=== PATIENT | female | born 1955 | race Caucasian/White ===

== ENCOUNTER → 2018-01-07 10:34 | Outpatient (CLI) | payer MEDICARE, MEDICAID, SELFPAY ==
--- NOTE | 2018-01-07 10:29 | DI.REPORT_ITS ---
SYMPTOM/DIAGNOSIS: ATRAUMATIC PAIN LEFT LEG: The patient is status post TKR. The tibial component of the prosthesis is intact. The tibia and fibula appear otherwise unremarkable. Note is made of degenerative changes involving the mortise joint and there is a prominent calcaneal spur, otherwise unremarkable.
== END ==
PROVIDERS: PCP Nurse Practitioner; Visit Provider Physician Assistant Surgical
DX: M65.322 Trigger finger, left index finger (principal); M79.605 Pain in left leg; Z96.652 Presence of left artificial knee joint; M17.12 Unilateral primary osteoarthritis, left knee; M77.32 Calcaneal spur, left foot
CPT/HCPCS: 73590; 99214

== ENCOUNTER → 2018-01-28 10:45 | Outpatient (CLI) | payer MEDICARE, MEDICAID, SELFPAY | PROVIDERS: PCP Nurse Practitioner; Visit Provider Orthopaedic Surgery | DX: Z47.89 Encounter for other orthopedic aftercare (principal); M65.322 Trigger finger, left index finger ==

== ENCOUNTER 2018-04-30 14:05 | Outpatient (REF) | payer MEDICARE, MEDICAID, SELFPAY ==
[2018-04-30 19:27] LABS: ALT 52 U/L (12-78); AST 35 U/L (15-37); Albumin 3.8 g/dL (3.4-5.0); Alkaline Phosphatase 83 U/L (46-116); Anion Gap 8.9 mmol/L (3-11); BUN 26 mg/dL (7-18); Bilirubin, Total 0.4 mg/dL (0.2-1.0); CO2 30.1 mmol/L (21.0-32.0); CREATININE 1.11 mg/dL (0.55-1.02); Calcium 9.7 mg/dL (8.5-10.1); Chloride 103 mmol/L (98-107); Cholesterol 162 mg/dL (50-200); Estimated GFR 49.33 (mL/min/1.73m2); Glucose 84 mg/dL (70-100); HDL Cholesterol 58 mg/dL (40-60); LDL CHOLESTEROL 83 mg/dL (<100); Potassium 4.4 mmol/L (3.5-5.1); Sodium 142 mmol/L (136-145); Total Protein 7.5 g/dL (6.4-8.2); Triglyceride 155 mg/dL (30-150)
== END 2018-04-30 14:25 ==
LOC: NCHCN 14:05
PROVIDERS: PCP Nurse Practitioner; Visit Provider Nurse Practitioner
DX: I10 Essential (primary) hypertension (principal); E11.9 Type 2 diabetes mellitus without complications; E78.5 Hyperlipidemia, unspecified
CPT/HCPCS: 80053; 80061; 83721; 83036

== ENCOUNTER 2018-05-04 15:08 | Outpatient (REF) | payer MEDICARE, MEDICAID, SELFPAY ==
--- NOTE | 2018-05-04 13:40 | ENDOMET_PTH ---
PATIENT: Jacki Jimenez LOC: [facility] U#:[id number] AGE/SX: 63/F ROOM: RE05/04/[address]: Kourtney Aguilar : 1955 BED: DIS: 05/04/2018 SPEC #: [id number] RECD: 05/04/18 17:43 STATUS: RU REQ #: [id number] CHONG: 05/04/18 13:[address]: Kourtney Aguilar DEPT: Surgical Specimen RECD BY: Selina Mendoza ENTERED: 05/04/18 17:43 SP TYPE: Endomet OTHR DR: Cherelle Boyce Tissues: 1 - ENDOMETRIUM BX/PARULETTE Procedures: GROSS AND MICRO LEVEL 4 Comments: [id number]
== END 2018-05-04 15:28 ==
LOC: LBN 15:08
PROVIDERS: PCP Nurse Practitioner; Visit Provider Obstetrics & Gynecology Gynecology
DX: N85.02 Endometrial intraepithelial neoplasia [EIN] (principal); N85.8 Other specified noninflammatory disorders of uterus
CPT/HCPCS: 88305

== ENCOUNTER 2018-05-06 11:30 | Outpatient (CLI) | payer MEDICARE, MEDICAID, SELFPAY ==
--- NOTE | 2018-05-06 11:26 | DI.RAD_ITS ---
SYMPTOM/DIAGNOSIS: PAIN RIGHT KNEE: There are severe degenerative changes of the medial femoral tibial joint space. There is prominent periarticular spurring. Spurring is also noted at the patella. There is varus angulation and widening of the lateral femoral tibial joint space which also shows spurring. IMPRESSION: Severe degenerative changes of the medial femoral tibial joint.
== END 2018-05-06 11:50 ==
PROVIDERS: PCP Nurse Practitioner; Referring Provider Nurse Practitioner; Visit Provider Orthopaedic Surgery
DX: M25.561 Pain in right knee (principal); M17.11 Unilateral primary osteoarthritis, right knee
CPT/HCPCS: 99212; 73560

== ENCOUNTER 2018-11-11 14:16 | Outpatient (REF) | payer MEDICARE, MEDICAID, SELFPAY ==
[2018-11-11 20:07] LABS: COMMENT (LAB VIEW ONLY) 132.91 mg/dL; Microalb ug/mg Crea 55.4 ug/mg Cr
== END 2018-11-11 14:36 ==
LOC: NCHCN 14:16
PROVIDERS: PCP Nurse Practitioner; Visit Provider Nurse Practitioner
DX: E11.9 Type 2 diabetes mellitus without complications (principal)
CPT/HCPCS: 82043; 82570

== ENCOUNTER 2018-11-23 00:39 | Outpatient (CLI) | payer MEDICARE, MEDICAID, SELFPAY ==
--- NOTE | 2018-11-23 09:30 | MERGEMPI_ITS ---
*[facility]* *[facility]* [address] [place] [address] Myocardial Perfusion Imaging - SPECT Regadenoson Date of study: 11/23/2018 *PATIENT PRESENTATION* Height: 154.9cm (61in) Blood Pressure: Weight: 126.8kg (279lb) BSA: 2.42m^2 Referring physician: Scott Levin MD Ordering physician: Cherelle Boyce Impressions: Normal perfusion by Tc99m Sestamibi Imaging. Summary: 1. Myocardial perfusion imaging: No myocardial perfusion defects noted. 2. The calculated left ventricular ejection fraction after stress: 72%. Indication: R06.02. History: REASON FOR TESTING: INCREASING SHORTNESS OF BREATH. PRIOR MPI 09/2013. PMH: OSTEOARTHRITIS, MELONY, DIABETES, MORBID OBESITY, BENIGHN HYPERTENSION, CORONARY ATHERSCLEROSIS, HYPERLIPIDEMIA, HYPOTHYROIDISM, GERD, DIVERTICULITIS WITH HEMICOLECTOMY, TKR, DEPRESSION, ADENOCARCINOMA OF ENDOMETRIUM. FAMILY HX: HYPERTENSION IN MOTHER AND BROTHER. HEART CATH WITH ATTEMPTED STENTS- . SMOKING: NEVER SMOKER. EXCERCISE: NO REGULAR EXCERCISE. Risk factors: Family history of coronary artery disease. Diabetes mellitus. Obesity. Dyslipidemia. Cholesterol: 146mg/dl. HDL: 58mg/dl. LDL: 83mg/dl. Triglycerides: 155mg/dl. ALLERGIES: RANITADINE, CATS, FUMES, PLASTIC. MEDICATIONS: VENLAFAXINE 37.5 MG BID, SIMVASTATIN 20 MG DAILY, METFORMIN 1000 MG BID, LORATADINE 10 MG DAILY, LEVOTHYROXINE 25 MCG DAILY, GLIPIZIDE 5 MG DAILY, VIT D3 2000, UNITS DAILY, BUPROPION HCL 150 MG DAILY, ATENOLOL 100 MG DAILY, ASPIRIN 81 MG DAILY, AMLODIPINE 5 MG DAILY, ALBUTEROL SULFATE 2 PUFFS Q6H PRN, ADVIL 200 MG Q6H PRN. Imaging Technique: Protocol: Regadenoson. Acquisition: Gated SPECT; 1 day - rest/stress. The patient was imaged in the supine position. Attenuation correction used. Isotope administration: - Rest. Tc[99m]-sestamibi. Dose: 11.1mCi. Injection time: 09:40 AM. Injection to stress time: 00:45. - Stress. Tc[99m]-sestamibi. Dose: 36mCi. Injection time: 11:40 AM. 1-2 min before end of exercise Baseline ECG: LAST EKG 05/20/2006- ATRIAL RHYTHM, RBBB. TODAY'S EKG-SINUS RHYTHM, RBBB. HR 86. Stress protocol: +--------+---+ + + !Stage !HR !BP (mmHg) !Comments ! +--------+---+ + + !Baseline!86 !140/80 (100) ! ! +--------+---+ + + !1 min !100!142/70 (94) !Inject Regadenoson.! +--------+---+ + + !3 min !115!160/100 (120)! ! +--------+---+ + + !6 min !103! ! ! +--------+---+ + + !7 min !99 !150/90 (110) ! ! +--------+---+ + + * Stress results: The rate-pressure product for the peak heart rate and blood pressure was 09884fp Hg/min. Stress ECG: LEXISCAN TESTING ENDED IN 7 MINS, 22 SECS THE EFFECT OF THE MEDICATION NO LONGER PRESENT. MAX HR WAS 119. HYPERTENSIVE BLOOD PRESSURE REPSONSE. PT DID VOMIT SMALL AMT AT EFFECT OF LEXISCAN. ECTOPY: NONE NOTED. ANGINA: NO REPORTED CHEST PAIN OR PRESSURE. ISCHEMIA: NO ISCHEMIC CHANGES NOTED. Myocardial perfusion: Imaging information: gated. No myocardial perfusion defects noted. Ventricular Function (Wall Motion): The calculated left ventricular ejection fraction after stress: 72%. Study data: Scott Levin MD supervised and was readily available during the procedure. This study was interpreted by [facility]. Study status: Routine. Consent: The risks, benefits, and alternatives to the procedure were explained to the patient and informed consent was obtained. Procedure: Initial setup. A baseline ECG was recorded. Surface ECG leads and manual cuff blood pressure measurements were monitored. Heart sounds: Normal. Lung sounds: Normal. Regadenoson stress test. Stress testing was performed, with regadenoson by intravenous bolus, for a total dose of 0.4mgover 10.00sec, followed by a 5ml saline flush. The infusion was terminated due to per protocol. The patient was unable to exercise due to deconditioning and or frailty. Study completion: All catheters inserted during the procedure were removed. The patient tolerated the procedure well and was discharged from the lab. Discharge: The patient left the laboratory in stable condition. Birthdate: Patient birthdate: 1955. Sex: Gender: female. Study date: Study date: 11/23/2018. Study time: 00:01 AM. Electronically signed by Scott Levin MD 11/23/2018 17:26
[2018-11-23] MEDS: Regadenoson 0.4 MG/5 ML SYR IVP (11:27)
== END 2018-11-23 00:59 ==
PROVIDERS: PCP Nurse Practitioner; Visit Provider Nurse Practitioner
DX: R06.02 Shortness of breath (principal); I25.10 Atherosclerotic heart disease of native coronary artery without angina pectoris; E11.9 Type 2 diabetes mellitus without complications; I10 Essential (primary) hypertension; E78.5 Hyperlipidemia, unspecified; E03.9 Hypothyroidism, unspecified; E66.1 Drug-induced obesity; Z82.49 Family history of ischemic heart disease and other diseases of the circulatory system
CPT/HCPCS: 78452; 93016; 93018; 93017; J2785

== ENCOUNTER 2018-11-25 01:37 | Outpatient (CLI) | payer MEDICARE, MEDICAID, SELFPAY ==
--- NOTE | 2018-11-25 | PFT_ITS ---
PULMONARY FUNCTION TEST REPORT Patient - Jacki Jimenez DATE OF SERVICE November 25, 2018 REQUESTING PROVIDER Cherelle Boyce NP INTERPRETATION OF STUDY Spirometry shows no evidence of obstructive airways disease. No bronchodilator response. LUNG VOLUMES - Lung volumes show no evidence of restriction. DIFFUSION CAPACITY- Normal. AIRWAY RESISTANCE - Normal. IMPRESSION Overall normal pulmonary function study. Clinical correlation recommended. Marisa Lane M.D. MONIQUE/ T- 11/26/2018
[2018-11-25] MEDS: Albuterol HFA 18 GM 200 PUFF INH IH (11:06)
[2018-11-25] MEDS: Inhaler, Assist Device 1 EACH MC (11:06)
== END 2018-11-25 01:57 ==
PROVIDERS: PCP Nurse Practitioner; Visit Provider Nurse Practitioner
DX: R06.02 Shortness of breath (principal)
CPT/HCPCS: 94060; 94150; 94726; 94729

== ENCOUNTER 2018-12-17 00:33 | Outpatient (CLI) | payer MEDICARE, MEDICAID, SELFPAY ==
[2018-12-17 14:19] LABS: CREATININE 1.18 mg/dL (0.55-1.02); Estimated GFR 45.97 (mL/min/1.73m2)
[2018-12-17] MEDS: Normal Saline Flush 10 ML SYR IVP (14:56)
[2018-12-17] MEDS: Gadoterate meglumine 20 ML VIAL IVP (14:58)
--- NOTE | 2018-12-17 15:12 | DI.MRI_ITS ---
SYMPTOM/DIAGNOSIS: UNILATERAL HEARING LOSS H90.5, H91.20 MRI OF INTERNAL AUDITORY CANALS BRAIN, WITHOUT AND WITH CONTRAST: Routine examination was performed. There is patient motion artifact which does degrade the images. The ventricles and sulci are consistent with the patient's age. There are areas of hyperintense signal on the Flair and T2 weighted images in the white matter and jeannie most suggestive of small vessel ischemic disease. No intracranial mass, midline shift or mass effect is identified. The diffusion weighted images show no evidence of restrictive diffusion. Gradient images show no evidence of intracranial hemorrhage. No masses are seen in the region in the region of the internal auditory canals or cerebellar pontine angles. There is fluid signal seen in the right mastoid air cells which may represent mastoiditis. The remaining visualized paranasal sinuses are clear. There is a normal flow void in the [place] of [place]. Following contrast administration no enhancing lesions are seen. IMPRESSION: 1. Image degradation secondary to patient motion. 2. No acute abnormality. No evidence of an acute infarct. No intracranial hemorrhage is seen. No mass or abnormal enhancement is seen in the cerebellar pontine angles or internal auditory canals. 3. Increased signal seen in the right mastoid air cells which may represent mastoiditis.
--- NOTE | 2018-12-17 16:44 | DI.VRAD_ITS ---
EXAM: MR Head Without and With Contrast EXAM DATE/TIME: 12/17/2018 3:04 PM CLINICAL HISTORY: 63 years old, female; Other: Unilat hearing loss TECHNIQUE: Imaging protocol: MR of the head without and with intravenous contrast. Contrast material: DOTAREM; Contrast volume: 20 ml; Contrast route: IV; COMPARISON: No relevant prior studies available. FINDINGS: Brain: Examination is mildly degraded by patient motion. Ventricles and sulci are within normal limits for the patient's age. There is no evidence of an intracranial mass or shift. There are scattered nonspecific foci of T2 hyperintense signal seen within the supratentorial periventricular and subcortical white matter. Patchy T2 bright signal is also seen within the jeannie. These findings are nonspecific but likely related to remote small vessel ischemic change /microangiopathy. There is however no restricted diffusion to suggest recent, acute or subacute ischemia or cytotoxic edema. There is no abnormal intracranial contrast enhancement. There is no abnormal susceptibility to suggest prior hemorrhage. No abnormal extra-axial collections are identified. Ventricles: No significant ventricular enlargement Bones/joints: The craniocervical junction is unremarkable. The calvarium is unremarkable Soft tissues: Subcutaneous soft tissues are unremarkable. Sinuses: There is no significant sinus opacification or fluid level. Mastoid air cells: There is minimal patchy opacification of a few mastoid air cells on the right. Internal auditory canals: The internal auditory canals are grossly symmetric. There is no evidence of an intra-or extra canalicular mass. Orbits: Orbits are unremarkable Other vasculature: Flow voids are unremarkable on the sequences obtained. IMPRESSION: Exam mildly degraded by patient motion. No acute findings identified. Findings suggestive of remote small vessel ischemic change microangiopathy. No restricted diffusion to suggest recent, acute or subacute change. Dictated and Authenticated by: Gabriela Reyes MD. Ordering:BRISSA Higgins MD
== END 2018-12-17 00:53 ==
PROVIDERS: PCP Nurse Practitioner; Visit Provider Otolaryngology Otolaryngology/Facial Plastic Surgery
DX: H90.5 Unspecified sensorineural hearing loss (principal); H91.20 Sudden idiopathic hearing loss, unspecified ear; H74.8X1 Other specified disorders of right middle ear and mastoid; Z01.812 Encounter for preprocedural laboratory examination
CPT/HCPCS: 70553; 82565

== ENCOUNTER 2019-03-08 15:12 | Outpatient (REF) | payer MEDICARE, MEDICAID, SELFPAY ==
--- NOTE | 2019-03-08 14:20 | PAPFT_PTH ---
PATIENT: Jacki Jimenez LOC: [facility] U#:[id number] AGE/SX: 64/F ROOM: RE03/08/[address]: Kourtney Aguilar : 1955 BED: DIS: 03/08/2019 SPEC #: [id number] RECD: 03/08/19 17:47 STATUS: RU REMickie #: [id number] CHONG: 03/08/19 14:[address]: Kourtney Aguilar DEPT: [facility] Cytology RECD BY: Selina Mendoza ENTERED: 03/08/19 17:48 SP TYPE: PAPFT OTHR DR: Cherelle Boyce Tissues: 1 - CX/ENDOCX FOR PAP SMEARS Procedures: PAP THIN PREP/[facility] Screening HPV DNA PROBE Comments: [id number]
--- NOTE | 2019-03-08 14:20 | ENDOMET_PTH ---
PATIENT: Jacki Jimenez LOC: [facility] U#:[id number] AGE/SX: 64/F ROOM: RE03/08/[address]: Kourtney Aguilar : 1955 BED: DIS: 03/08/2019 SPEC #: [id number] RECD: 03/08/19 17:27 STATUS: RU REMickie #: [id number] CHONG: 03/08/19 14:[address]: Kourtney Aguilar DEPT: Surgical Specimen RECD BY: Selian Mendoza ENTERED: 03/08/19 17:28 SP TYPE: Endomet OTHR DR: Cherelle Boyce Tissues: 1 - ENDOMETRIUM BX/PARULETTE Procedures: GROSS AND MICRO LEVEL 4 Comments: [id number]
== END 2019-03-08 15:32 ==
LOC: LBN 15:12
PROVIDERS: PCP Nurse Practitioner; Visit Provider Obstetrics & Gynecology Gynecology
DX: N85.02 Endometrial intraepithelial neoplasia [EIN] (principal); Z85.42 Personal history of malignant neoplasm of other parts of uterus; Z12.4 Encounter for screening for malignant neoplasm of cervix; Z11.51 Encounter for screening for human papillomavirus (HPV)
CPT/HCPCS: 88142; 88305; 87624

== ENCOUNTER 2019-04-05 19:26 | Outpatient (REF) | payer MEDICARE, MEDICAID, SELFPAY ==
[2019-04-05 19:15] LABS: ALT 57 U/L (14-59); AST 47 U/L (15-37); Albumin 3.7 g/dL (3.4-5.0); Alkaline Phosphatase 75 U/L (46-116); Anion Gap 12.5 mmol/L (3-11); BUN 29 mg/dL (7-18); Bilirubin, Total 0.5 mg/dL (0.2-1.0); CO2 26.5 mmol/L (21.0-32.0); CREATININE 1.29 mg/dL (0.55-1.02); Calcium 9.6 mg/dL (8.5-10.1); Calculated LDL 74 mg/dL; Chloride 103 mmol/L (98-107); Cholesterol 153 mg/dL (50-200); Estimated GFR 41.35 (mL/min/1.73m2); Glucose 119 mg/dL (70-100); HDL Cholesterol 51 mg/dL (40-60); Sodium 142 mmol/L (136-145); TSH (W/Ref FT4) 3.38 uIU/mL (0.36-3.74); Total Protein 7.7 g/dL (6.4-8.2); Triglyceride 144 mg/dL (30-150)
== END 2019-04-05 19:46 ==
LOC: NCHCN 19:26
PROVIDERS: PCP Nurse Practitioner; Visit Provider Nurse Practitioner
DX: I10 Essential (primary) hypertension (principal); E11.9 Type 2 diabetes mellitus without complications
CPT/HCPCS: 80053; 80061; 84443

== ENCOUNTER 2019-08-04 01:11 | Outpatient (CLI) | payer MEDICARE, MEDICAID, SELFPAY ==
--- NOTE | 2019-08-04 13:00 | DI.MAMMO_ITS ---
EXAM: MG MAMMO SCREENING CLINICAL HISTORY: Screening,z12.39 TECHNIQUE: Bilateral full field digital CC and MLO mammographic images were obtained with 3D tomosyn thesis and utilizing computer aided detection (CAD). COMPARISON: Available for comparison. FINDINGS: Masses/Architectural Distortion: None seen. Microcalcifications: No suspicious pleomorphic-type are seen. Skin Thickening/Nipple Retraction: None. IMPRESSION: 1. No significant interval change with no specific features of malignancy noted. 2. Unless there is more urgent need, screening mammography is recommended, as per [employer] guidelines. ACR BI-RAD Category- 1 Negative Breast Density - Category B - Scattered areas of fibroglandular density A negative radiographic report should not delay biopsy if a dominant or clinically suspicious mass is present. Up to ten percent of cancers are not identified on mammography. A negative report may reinforce clinical impression. Adenosis and dense breasts may obscure an underlying neoplasm. False positive reports average 6 to 10%. Patient will receive a letter notifying them of these results.
== END 2019-08-04 01:31 ==
PROVIDERS: PCP Nurse Practitioner; Visit Provider Obstetrics & Gynecology Gynecology
DX: Z12.31 Encounter for screening mammogram for malignant neoplasm of breast (principal)
CPT/HCPCS: 77063; 77067

== ENCOUNTER 2020-01-05 14:06 | Outpatient (REF) | payer MEDICARE, MEDICAID, SELFPAY ==
--- NOTE | 2020-01-05 13:45 | ENDOMET_PTH ---
PATIENT: Jacki Jimenez LOC: [facility] U#:[id number] AGE/SX: 64/F ROOM: RE01/05/[address]: Kourtney Aguilar : 1955 BED: DIS: 01/05/2020 SPEC #: [id number] RECD: 01/05/20 16:09 STATUS: RU REMickie #: [id number] CHONG: 01/05/20 13:[address]: Korutney Aguilar DEPT: Surgical Specimen RECD BY: Selina Mendoza ENTERED: 01/05/20 16:10 SP TYPE: Endomet OTHR DR: Cherelle Boyce Tissues: 1 - ENDOMETRIUM BX/PARULETTE Procedures: GROSS AND MICRO LEVEL 4 Comments: [id number]
== END 2020-01-05 14:26 ==
LOC: LBN 14:06
PROVIDERS: PCP Nurse Practitioner; Visit Provider Obstetrics & Gynecology Gynecology
DX: Z85.44 Personal history of malignant neoplasm of other female genital organs (principal); Z12.79 Encounter for screening for malignant neoplasm of other genitourinary organs
CPT/HCPCS: 88305

== ENCOUNTER 2020-03-06 15:47 | Outpatient (REF) | payer MEDICARE, MEDICAID, SELFPAY ==
[2020-03-06 18:33] LABS: COMMENT (LAB VIEW ONLY) 49.19 mg/dL; Microalb ug/mg Crea 46.1 ug/mg Cr
[2020-03-06 19:04] LABS: Hemoglobin A1C 10.5 % (<5.7)
[2020-03-06 19:20] LABS: ALT 109 U/L (14-59); AST 81 U/L (15-37); Albumin 3.5 g/dL (3.4-5.0); Alkaline Phosphatase 80 U/L (46-116); Anion Gap 6.8 mmol/L (3-11); BUN 20 mg/dL (7-18); Bilirubin, Total 0.9 mg/dL (0.2-1.0); CO2 29.2 mmol/L (21.0-32.0); CREATININE 1.14 mg/dL (0.55-1.02); Calcium 9.1 mg/dL (8.5-10.1); Calculated LDL 82 mg/dL (<100); Chloride 99 mmol/L (98-107); Cholesterol 158 mg/dL (<200); Estimated GFR 47.54 (mL/min/1.73m2); Glucose 402 mg/dL (74-106); HDL Cholesterol 45 mg/dL (40-60); Potassium 4.5 mmol/L (3.5-5.1); Sodium 135 mmol/L (136-145); TSH (W/Ref FT4) 2.52 uIU/mL (0.36-3.74); Total Protein 7.3 g/dL (6.4-8.2); Triglyceride 155 mg/dL (<150)
[2020-03-06 19:38] LABS: Vitamin D 25 Total 33.6 ng/ml (30-100)
== END 2020-03-06 16:07 ==
LOC: NCHCN 15:47
PROVIDERS: PCP Nurse Practitioner; Visit Provider Nurse Practitioner
DX: I10 Essential (primary) hypertension (principal); E11.9 Type 2 diabetes mellitus without complications; E78.5 Hyperlipidemia, unspecified; E03.9 Hypothyroidism, unspecified; F32.9 Major depressive disorder, single episode, unspecified; E66.8 Other obesity
CPT/HCPCS: 80053; 80061; 82306; 82043; 82570; 83036; 84443

== ENCOUNTER 2020-07-03 15:05 | Outpatient (REF) | payer MEDICARE, MEDICAID, SELFPAY ==
--- NOTE | 2020-07-03 13:55 | ENDOMET_PTH ---
PATIENT: Jacki Jimenez LOC: [facility] U#:[id number] AGE/SX: 65/F ROOM: RE07/03/[address]: Bri Wall DO : 1955 BED: DIS: 07/03/2020 SPEC #: [id number] RECD: 07/03/20 17:02 STATUS: RU RE #: [id number] CHONG: 07/03/20 13:[address]: Bri Wall DEPT: Surgical Specimen RECD BY: Selina Mendoza ENTERED: 07/03/20 17:03 SP TYPE: Endomet OTHR DR: Cherelle Boyce Tissues: 1 - ENDOMETRIUM BX/CURRETTE Procedures: GROSS AND MICRO LEVEL 4 Comments: [id number]
== END 2020-07-03 15:25 ==
LOC: LBN 15:05
PROVIDERS: PCP Nurse Practitioner; Visit Provider Obstetrics & Gynecology
DX: N85.02 Endometrial intraepithelial neoplasia [EIN] (principal); T38.5X5A Adverse effect of other estrogens and progestogens, initial encounter; Z85.42 Personal history of malignant neoplasm of other parts of uterus; Z97.5 Presence of (intrauterine) contraceptive device
CPT/HCPCS: 88305

== ENCOUNTER 2021-01-02 12:11 | Outpatient (REF) | payer MEDICARE, MEDICAID, SELFPAY ==
--- NOTE | 2021-01-02 11:45 | ENDOMET_PTH ---
PATIENT: Jacki Jimenez LOC: [facility] U#:[id number] AGE/SX: 65/F ROOM: RE01/02/[address]: Kourtney Aguilar : 1955 BED: DIS: 01/02/2021 SPEC #: [id number] RECD: 01/02/21 12:53 STATUS: RU REQ #: [id number] CHONG: 01/02/21 11:[address]: Kourtney Aguilar DEPT: Surgical Specimen RECD BY: Selina Mendoza ENTERED: 01/02/21 12:54 SP TYPE: Endomet OTHR DR: Cherelle Boyce Tissues: 1 - ENDOMETRIUM BX/CURRETTE Procedures: GROSS AND MICRO LEVEL 4 Comments: [id number]
== END 2021-01-02 12:12 | disposition home or self-care (01) ==
LOC: LBN 12:11
PROVIDERS: PCP Nurse Practitioner; Visit Provider Obstetrics & Gynecology Gynecology
DX: N85.02 Endometrial intraepithelial neoplasia [EIN] (principal); N85.8 Other specified noninflammatory disorders of uterus; Z85.44 Personal history of malignant neoplasm of other female genital organs
CPT/HCPCS: 88305

== ENCOUNTER 2021-03-04 19:28 | Inpatient (IN) | payer MEDICARE, MEDICAID, SELFPAY ==
[2021-03-04 19:49] VITALS: BP 136/89; PULSE 79; RESP 24; TEMP 36.8; O2SAT 80
--- NOTE | 2021-03-04 20:00 | DI.RAD_ITS ---
Exam(s) XR PORTABLE CHEST AP EXAM: XR PORTABLE CHEST AP CLINICAL HISTORY: sob, covid TECHNIQUE: 2D digital imaging was performed. COMPARISON: CR CHEST 2 VIEWS PA,LAT from 11/09/2012 FINDINGS: The lungs are suboptimally inflated. There is elevation of the right diaphragm. There are abnormal increased densities peripherally in the right lung consistent with pneumonia. Mildly increased densi ties are also seen at the left lung base. No effusion or pneumothorax. Degenerative changes are not ed in the spine.. IMPRESSION: Bilateral infiltrates, right greater than left. DATA REPOSITORY: RADIATION DOSE DELIVERED:
--- NOTE | 2021-03-04 20:22 | W.ED.GENAD ---
Discharge Plan Disposition Patient Disposition: [facility] INPATIENT Condition: Serious Discharge Details Clinical Impression: Pneumonia due to 2019 novel coronavirus Admit Date/Time: 03/04/21 23:16 Admit Provider: Julio C Pedersen Attending Provider: Julio C Pedersen Primary Care Provider: Cherelle Boyce ED Provider: Annia Zelaya Discharge Data Discharge Date/Time-TO BE ENTERED AT DEPARTURE: 03/05/21 00:30 Medical Decision Making covid positive patient presents for evaluation of hypoxia, arrives at 80 % on room air. placed on 2 liter nc. routine covid/pneumonia work up initiated. given remdesivir 200 mg IVPB and decadron 6 mg\ will admit, care given to DR Pedersen Medical Records Medical records reviewed: Yes I reviewed the patient's medical records. Imaging Data Radiologic Study: Imaging: X-Ray Radiologist's impression: Exam(s) PROCEDURE INFORMATION: Exam: XR Chest Exam date and time: 03/04/2021 8:01 PM Age: 66 years old Clinical indication: Shortness of breath; Patient HX: SOB, covid TECHNIQUE: Imaging protocol: XR of the chest. Views: 1 view. COMPARISON: No relevant prior studies available. FINDINGS: Lungs: Suspected patchy consolidation is seen along the lateral aspect of the right hemithorax. A few indistinct patchy densities also seen in the lower left lung field with no other consolidation or collapse detected. Pleural spaces: No pleural effusion. No pneumothorax. Heart/Mediastinum: Heart size is upper limits of normal and vessel margins are sharply defined. Bones/joints: No acute osseous lesions are detected. IMPRESSION: Suspected consolidation along the lateral right lung field worrisome for pneumonia. Lab Data Lab results reviewed: Yes I reviewed the patient's lab results. Lab results narrative: Most recent lab results Calcium 8.5 mg/dL (8.5-10.1) 03/04/21 20:50 Magnesium 1.7 mg/dL (1.8-2.4) L 03/04/21 20:50 Laboratory Results - last 24 hr 03/04/21 03/04/21 03/04/21 20:50 20:50 20:50 WBC 8.35 RBC 5.13 Hgb 14.4 Hct 43.4 MCV 84.6 MCH 28.1 MCHC 33.2 RDW 14.2 Plt Count 206 MPV 9.7 Immature Gran % 0.8 Neutrophils % 73.6 Lymphocytes % 14.3 Monocytes % 9.5 Eosinophils % 1.6 Basophils % 0.2 Nucleated RBC % 0 Absolute Neutrophils 6.15 Absolute Lymphocytes 1.19 L Absolute Monocytes 0.79 Absolute Eosinophils 0.13 Absolute Basophils 0.02 D-Dimer VBG Lactate Sodium 139 Potassium 3.3 L Chloride 100 Carbon Dioxide 32.2 H Anion Gap 6.8 BUN 16 Creatinine 1.0 Estimated GFR/1.73 m2 55.14 Glucose 132 H Calcium 8.5 Magnesium 1.7 L Ferritin 433 H Total Bilirubin 1.2 H AST 54 H ALT 40 Alkaline Phosphatase 91 Lactate Dehydrogenase 309 H Troponin I C-Reactive Protein 9.07 H Total Protein 7.1 Albumin 2.8 L 03/04/21 03/04/21 03/04/21 20:50 20:50 20:50 WBC RBC Hgb Hct MCV MCH MCHC RDW Plt Count MPV Immature Gran % Neutrophils % Lymphocytes % Monocytes % Eosinophils % Basophils % Nucleated RBC % Absolute Neutrophils Absolute Lymphocytes Absolute Monocytes Absolute Eosinophils Absolute Basophils D-Dimer 1337 H VBG Lactate 1.3 Sodium Potassium Chloride Carbon Dioxide Anion Gap BUN Creatinine Estimated GFR/1.73 m2 Glucose Calcium Magnesium Ferritin Total Bilirubin AST ALT Alkaline Phosphatase Lactate Dehydrogenase Troponin I < 0.05 C-Reactive Protein Total Protein Albumin HPI General Mode of arrival: ambulatory. Limitations to Documentation: no limitations. Information obtained by: patient. HPI Narrative: diagnosed Friday with covid. has had increased shortness of breath, found hypoxic on room air. febrile with sweats. many other family members infected. able to take po. Related Data Home Medications Medication Instructions Recorded Confirmed Advil 200 mg PO Q6H PRN tab-cap 10/13/12 03/04/21 aspirin [Aspir 81] 81 mg PO DAILY tab-cap 10/13/12 03/04/21 atenolol 100 mg PO DAILY tab-cap 10/13/12 03/04/21 metformin 1,000 mg PO BID 10/13/12 03/04/21 simvastatin 20 mg PO DAILY tab-cap 10/13/12 03/04/21 levothyroxine [Synthroid] 25 mcg PO DAILY tab-cap 12/07/12 03/04/21 venlafaxine 37.5 mg PO BID 04/21/13 03/04/21 albuterol sulfate [Proair Hfa] 2 puff INHALATION Q6H PRN #2 06/23/14 10/03/21 inhaler loratadine 10 mg PO DAILY 09/14/14 03/04/21 cholecalciferol (vitamin D3) 2,000 unit PO DAILY 04/10/16 03/04/21 [Vitamin D3] amlodipine 5 mg tablet 5 mg PO DAILY 07/30/18 03/04/21 levonorgestrel 20 mcg/24 hours (6 1 device INTRAUTERINE ONCE #1 08/02/18 03/04/21 yrs) 52 mg intrauterine device device exenatide microspheres 2 mg mg SC 03/08/19 01/20/21 subcutaneous extended release suspension bupropion HCl 150 mg PO DAILY 03/05/21 03/05/21 hydrochlorothiazide 12.5 mg 03/05/21 Previous Rx's Medication Instructions Recorded levonorgestrel 20 mcg/24 hours (6 1 device INTRAUTERINE ONCE #1 08/02/18 yrs) 52 mg intrauterine device device Allergies Allergy/AdvReac Type Severity Reaction Status Date / Time ranitidine Allergy Mild HIVES Verified 03/04/21 19:52 CATS Allergy RASH/ITCHING/BREATHING Uncoded 03/04/21 19:52 DIFFICULTIES FUMES Allergy BREATHING Uncoded 03/04/21 19:52 DIFFICULTIES PLASTIC Allergy RASH Uncoded 03/04/21 19:52 General Stated Complaint: SOB GREY: 3 Review of Systems Constitutional Constitutional: Reports body ache(s), Reports chills, Reports fever(s), Reports headache(s), Reports lethargy and Reports poor appetite (loss of taste) Eyes Eyes: Denies loss of vision ENT Ears, Nose, Mouth, and Throat: Denies vertigo, Denies dizziness and Reports headache(s) Cardiovascular Cardiovascular: Denies chest pain, Denies syncope, Reports dyspnea and Reports dyspnea on exertion Respiratory Respiratory: Reports cough, Denies hemoptysis, Reports dyspnea, Reports dyspnea on exertion and Denies wheezing Gastrointestinal Gastrointestinal: Denies abdominal pain Musculoskeletal Musculoskeletal: Reports myalgias Integumentary/Breasts Skin/Breast: Denies rash Neurologic Neurologic: Denies vertigo, Denies dizziness, Denies syncope, Reports headache(s) and Denies loss of vision Hematologic/Lymphatic Hematologic/Lymphatic: Denies easy bleeding and Denies easy bruising Allergic/Immunologic Allergic/Immunologic: Denies wheezing [facility] Medical History (Updated 03/05/21 @ 16:56 by Annia Zelaya NP) Adenocarcinoma of endometrium Grade 1 diagnosed 2012. No surgery secondary to patient's comorbidities. Mirena IUD inserted 2012 patient has in which her biopsies every 6 months. Adenocarcinoma remains present grade 1 Benign hypertension Chronic osteoarthritis Coronary arteriosclerosis Diabetes mellitus, type 2 Gastroesophageal reflux disease Hyperlipidemia Hypothyroidism Morbid obesity 05/2018 BMI 52 Obstructive sleep apnea syndrome MELONY (obstructive sleep apnea) (10/31/17) Surgical History Hemicolectomy (~2003) diverticulitis, BSO performed concomittantly. anastomotic leak,reoperation, colostomy, MSA infection, wound dehiscence and closure by 2d intention. Open Carpal Tunnel release bilateral Replacement of total knee joint left Family History Mother Hypertensive disorder, systemic arterial Father Acute poliomyelitis Brother Hypertensive disorder, systemic arterial Diabetes Brother Diabetes Personal history of malignant neoplasm Social History Smoking/Tobacco Use Status: Never Smoking risk assessment performed?: Yes Alcohol Intake: never Drug use: Never Substance use type: does not use Number of Children: 1 current occupation: Not working secondary to disabilities Seatbelt use: always Do you feel safe at home: Yes Do you feel safe in your relationship?: Yes History History 1 Para Hx # Term Pregnancies Multiple births Hx # Pregnancies Ectopic pregnancies AB induced Hx Number of Living Children 1 AB spontaneous Exam Const General: cooperative and acute distress mild Nutritional Appearance: obese Orientation: alert, awake and oriented x3 HENMT Head: normal to inspection, normocephalic and atraumatic Mouth: oral mucosae normal Chest Chest: normal inspection of the chest Resp Effort & Inspection: cough and tachypneic Auscultation: diminished lung sounds (bases, scattered coarse breath sounds, no wheeze) bilaterally Cardio Rate: regular rate Rhythm: regular rhythm GI Inspection: obesity Neuro General: patient alert, patient awake and patient oriented x3 Extrem General: full ROM Course Vital Signs Vital signs: Vital Signs Temperature 36.8 C 03/04/21 19:49 Pulse 79 03/04/21 19:49 Respiratory Rate 24 03/04/21 19:49 Blood Pressure 136/89 03/04/21 19:49 Pulse Oximetry 80 L 03/04/21 19:49 Temperature 36.8 C 03/04/21 19:49 Temperature Source Temporal Artery Scan 03/04/21 19:49 Pulse 79 03/04/21 19:49 Respiratory Rate 24 03/04/21 19:49 Blood Pressure 136/89 03/04/21 19:49 Blood Pressure Position Sitting 03/04/21 19:49 Pulse Oximetry 80 L 03/04/21 19:49 Oxygen Delivery Method Room Air 03/04/21 19:49 Oxygen Flow Rate 0 03/04/21 19:49 Pain Level 5 03/04/21 19:49 Lab/Test Results Lab/Test Results: 03/04/21 20:00 Blood Blood Culture - Pending 03/04/21 20:00 Blood Blood Culture - Pending
--- NOTE | 2021-03-04 20:30 | RT.EKG_ITS ---
APPROVED REPORT Exam: Resting ECG Reason for Exam: SOB COVID Patient Location: E HR:74 bpm ECG Measurements Heart Rate 74 AXIS AK 176 P 61 QRSd 151 QRS -17 QT 475 T 2 QTc 528 Conclusion Sinus rhythm...normal P axis, V-rate 60- 99 Right bundle branch block...QRSd>120, terminal axis(90,270) Probable left ventricular hypertrophy...(RaVL+SV3)xQRSd >300 Physician: No stemi, RBBB, unchanged from 2005
[2021-03-04] MEDS: Dexamethasone 4 MG TAB 6 MG PO (20:45)
[2021-03-04 21:10] LABS: Lactate 1.3 mmol/L (0.6-1.4)
[2021-03-04 21:12] LABS: Abs Immature Grans 0.07 10^3/uL (0.0-0.06); Absolute Basophil Count 0.02 10^3/uL (0.0-0.2); Absolute Eosinophil Count 0.13 10^3/uL (0.0-0.7); Absolute Lymphocyte Count 1.19 10^3/uL (1.2-3.4); Absolute Monocyte Count 0.79 10^3/uL (0.1-0.8); Absolute Neutrophil Count 6.15 10^3/uL (1.2-6.7); Basophils % 0.2; Eosinophils % 1.6; HCT 43.4 % (36.0-46.0); HGB 14.4 g/dL (11.2-15.7); Immature Grans % 0.8; Lymphocytes % 14.3; MCH 28.1 pg (27.0-33.0); MCHC 33.2 % (32.0-36.0); MCV 84.6 fL (80-95); MPV 9.7 fL (8.0-11.0); Monocytes % 9.5; Neutrophils % 73.6; Nucleated RBC 0 %; Platelet Count 206 10^3/uL (130-400); RBC 5.13 10^6/uL (3.93-5.22); RDW 14.2 % (11.7-14.6); WBC 8.35 10^3/uL (4.4-10.8)
[2021-03-04] MEDS: REMDESIVIR 200 MG in Normal Saline 250 ML 250 MG IVPB (21:12)
--- NOTE | 2021-03-04 21:23 | DI.VRAD_ITS ---
PROCEDURE INFORMATION: Exam: XR Chest Exam date and time: 03/04/2021 8:01 PM Age: 66 years old Clinical indication: Shortness of breath; Patient HX: SOB, covid TECHNIQUE: Imaging protocol: XR of the chest. Views: 1 view. COMPARISON: No relevant prior studies available. FINDINGS: Lungs: Suspected patchy consolidation is seen along the lateral aspect of the right hemithorax. A few indistinct patchy densities also seen in the lower left lung field with no other consolidation or collapse detected. Pleural spaces: No pleural effusion. No pneumothorax. Heart/Mediastinum: Heart size is upper limits of normal and vessel margins are sharply defined. Bones/joints: No acute osseous lesions are detected. IMPRESSION: Suspected consolidation along the lateral right lung field worrisome for pneumonia. Dictated and Authenticated by: Nick Kinsey MD. Ordering:JOHN Milner MD
[2021-03-04 21:24] VITALS: RESP 24
[2021-03-04 21:29] LABS: ALT 40 U/L (14-59); AST 54 U/L (15-37); Albumin 2.8 g/dL (3.4-5.0); Alkaline Phosphatase 91 U/L (46-116); Anion Gap 6.8 mmol/L (3-11); BUN 16 mg/dL (7-18); Bilirubin, Total 1.2 mg/dL (0.2-1.0); C-Reactive Protein 9.07 mg/dL (0.0-0.3); CO2 32.2 mmol/L (21.0-32.0); Calcium 8.5 mg/dL (8.5-10.1); Chloride 100 mmol/L (98-107); Estimated GFR 55.14 (mL/min/1.73m2); Glucose 132 mg/dL (74-106); LDH 309 U/L (81-234); Magnesium 1.7 mg/dL (1.8-2.4); Potassium 3.3 mmol/L (3.5-5.1); Sodium 139 mmol/L (136-145); Total Protein 7.1 g/dL (6.4-8.2)
[2021-03-04 21:47] LABS: D-Dimer 1337 ng/mlFEU (<500)
[2021-03-04 21:55] LABS: Troponin I < 0.05 ng/mL (<0.06)
[2021-03-04 21:56] LABS: Ferritin 433 ng/mL (8-252)
--- NOTE | 2021-03-04 22:56 | W.PM.HP.N ---
Date of service: 03/04/21 Time of Service: 22:56 Assessment and Plan Assessment and plan (1) COVID: Status: Acute Assessment and plan: COVID. The hypoxia is noted, but O2 sats satisfactory on low dose supplemental oxygen. Not clear that bacterial pneumonia may be present, and in absence of fever or leukocytosis, and no definite infiltrate, will hold on empiric antibiotics. Will continue Dexa and Remdesivir and follow course. Will add prophylactic Lovenox. History of Present Illness History of Present Illness Chief Complaint: SOB Narrative: 66 female, vaccinated, but exposed to numerous unvaccinated family members many of whom have been ill with COVID. Here with 10-14 days of a multitude of symptoms including variably fever, cough, myalgias, nausea, GRAF, fatigue... Tested positive for COVID recently (unable to locate documentation) and advised to monitor at home. Here tonight with increasing SOB and reported home sats 89%. Here in ER w/u of note for RA sat 80%, no leukocytosis, elevated inflammatory markers (CRP, d-Dimer, ferritin, LDH) and CXR showing possible infiltrate along lateral margin right lung. Started on Dexa and Remdesivir and 2L O2 with sats in mid-90s. Admitted for further management. Review of Systems All systems reviewed & are unremarkable except as noted in HPI and below PFSH Medical History Adenocarcinoma of endometrium Grade 1 diagnosed 2012. No surgery secondary to patient's comorbidities. Mirena IUD inserted 2012 patient has in which her biopsies every 6 months. Adenocarcinoma remains present grade 1 Benign hypertension Chronic osteoarthritis Coronary arteriosclerosis Diabetes mellitus, type 2 Gastroesophageal reflux disease Hyperlipidemia Hypothyroidism Morbid obesity 05/2018 BMI 52 Obstructive sleep apnea syndrome Surgical History Hemicolectomy (~2003) diverticulitis, BSO performed concomittantly. anastomotic leak,reoperation, colostomy, MSA infection, wound dehiscence and closure by 2d intention. Open Carpal Tunnel release bilateral Replacement of total knee joint left Family History Mother Hypertensive disorder, systemic arterial Father Acute poliomyelitis Brother Hypertensive disorder, systemic arterial Diabetes Brother Diabetes Personal history of malignant neoplasm Social History Smoking/Tobacco Use Status: Never Smoking risk assessment performed?: Yes Alcohol Intake: never Drug use: Never Substance use type: does not use Number of Children: 1 current occupation: Not working secondary to disabilities Seatbelt use: always Do you feel safe at home: Yes Do you feel safe in your relationship?: Yes History History 1 Para Hx # Term Pregnancies Multiple births Hx # Pregnancies Ectopic pregnancies AB induced Hx Number of Living Children 1 AB spontaneous Meds Allergies and Home Medications Allergies Allergy/AdvReac Type Severity Reaction Status Date / Time ranitidine Allergy Mild HIVES Verified 03/04/21 19:52 CATS Allergy RASH/ITCHING/BREATHING Uncoded 03/04/21 19:52 DIFFICULTIES FUMES Allergy BREATHING Uncoded 03/04/21 19:52 DIFFICULTIES PLASTIC Allergy RASH Uncoded 03/04/21 19:52 Home Medications Medication Instructions Recorded Confirmed Type Advil 200 mg PO Q6H PRN tab-cap 10/13/12 03/04/21 History aspirin [Aspir 81] 81 mg PO DAILY tab-cap 10/13/12 03/04/21 History atenolol 100 mg PO DAILY tab-cap 10/13/12 03/04/21 History bupropion HCl 150 mg PO DAILY tab-cap 10/13/12 03/04/21 History metformin 1,000 mg PO BID 10/13/12 03/04/21 History simvastatin 20 mg PO DAILY tab-cap 10/13/12 03/04/21 History levothyroxine [Synthroid] 25 mcg PO DAILY tab-cap 12/07/12 03/04/21 History venlafaxine 37.5 mg PO BID 04/21/13 03/04/21 History albuterol sulfate [Proair Hfa] 2 puff INHALATION Q6H PRN #2 11/22/13 03/04/21 History inhaler loratadine 10 mg PO DAILY 09/14/14 03/04/21 History cholecalciferol (vitamin D3) 2,000 unit PO DAILY 04/10/16 03/04/21 History [Vitamin D3] amlodipine 5 mg tablet 5 mg PO DAILY 07/30/18 03/04/21 History levonorgestrel 20 mcg/24 hours (6 1 device INTRAUTERINE ONCE #1 08/02/18 03/04/21 Rx yrs) 52 mg intrauterine device device exenatide microspheres 2 mg mg SC 03/08/19 01/20/21 History subcutaneous extended release suspension Exam Narrative Exam Narrative: 136/89, 79, 36.8, 24, 93% (2L). HEENT atraumatic; neck supple; lungs grossly clear but obscured by ambient sounds; heart RRR; abdomen soft and NT; extremities w/o edema; neuro Ox3, lucid, moves all 4s Results Labs Result diagrams: 03/04/21 20:50 03/04/21 20:50 Labs: Laboratory Results - last 24 hr 03/04/21 03/04/21 03/04/21 20:50 20:50 20:50 WBC 8.35 RBC 5.13 Hgb 14.4 Hct 43.4 MCV 84.6 MCH 28.1 MCHC 33.2 RDW 14.2 Plt Count 206 MPV 9.7 Immature Gran % 0.8 Neutrophils % 73.6 Lymphocytes % 14.3 Monocytes % 9.5 Eosinophils % 1.6 Basophils % 0.2 Nucleated RBC % 0 Absolute Neutrophils 6.15 Absolute Lymphocytes 1.19 L Absolute Monocytes 0.79 Absolute Eosinophils 0.13 Absolute Basophils 0.02 D-Dimer VBG Lactate Sodium 139 Potassium 3.3 L Chloride 100 Carbon Dioxide 32.2 H Anion Gap 6.8 BUN 16 Creatinine 1.0 Estimated GFR/1.73 m2 55.14 Glucose 132 H Calcium 8.5 Magnesium 1.7 L Ferritin 433 H Total Bilirubin 1.2 H AST 54 H ALT 40 Alkaline Phosphatase 91 Lactate Dehydrogenase 309 H Troponin I C-Reactive Protein 9.07 H Total Protein 7.1 Albumin 2.8 L 03/04/21 03/04/21 03/04/21 20:50 20:50 20:50 WBC RBC Hgb Hct MCV MCH MCHC RDW Plt Count MPV Immature Gran % Neutrophils % Lymphocytes % Monocytes % Eosinophils % Basophils % Nucleated RBC % Absolute Neutrophils Absolute Lymphocytes Absolute Monocytes Absolute Eosinophils Absolute Basophils D-Dimer 1337 H VBG Lactate 1.3 Sodium Potassium Chloride Carbon Dioxide Anion Gap BUN Creatinine Estimated GFR/1.73 m2 Glucose Calcium Magnesium Ferritin Total Bilirubin AST ALT Alkaline Phosphatase Lactate Dehydrogenase Troponin I < 0.05 C-Reactive Protein Total Protein Albumin Last Vital Signs Temp 36.8 C 03/04/21 19:49 Pulse 79 03/04/21 19:49 Resp 24 03/04/21 21:24 BP 136/89 03/04/21 19:49 Pulse Ox 80 L 03/04/21 19:49
[2021-03-04 23:11] VITALS: BP 165/83; PULSE 90; RESP 20; TEMP 37.2; O2SAT 94
[2021-03-05] VITALS (8 sets, daily range): BP systolic 107–163; BP diastolic 71–87; PULSE 68–81; RESP 18–20; TEMP 36.8–37.1; O2SAT 93–97
[2021-03-05 00:38] LABS: Source Nasal/Nares
[2021-03-05 01:38] LABS: COVID-19 PCR POSITIVE (Negative)
[2021-03-05] MEDS: Levothyroxine 25 MCG TAB PO (06:02)
[2021-03-05] MEDS: Enoxaparin 40 MG/0.4 ML SYR SC (08:26)
[2021-03-05] MEDS: Insulin Aspart 300 UNITS/3 ML PEN SC ×4 (08:26→22:36)
[2021-03-05] MEDS: amLODIPine 5 MG TAB PO (08:27)
[2021-03-05] MEDS: Simvastatin 20 MG TAB PO (08:27)
[2021-03-05] MEDS: Cholecalciferol (Vitamin D3) 1,000 UNIT TAB 2000 UNITS PO (08:27)
[2021-03-05] MEDS: Dexamethasone 4 MG TAB 6 MG PO (08:27)
[2021-03-05] MEDS: Atenolol 50 MG TAB 100 MG PO (08:28)
[2021-03-05] MEDS: Pantoprazole 40 MG TABCR PO (08:28)
[2021-03-05] MEDS: Ascorbic Acid 500 MG TAB 1000 MG PO ×2 (08:28→20:42)
[2021-03-05] MEDS: buPROPion-CR 150 MG TABCR PO (08:28)
[2021-03-05] MEDS: Loratidine 10 MG TAB PO (08:28)
[2021-03-05] MEDS: Aspirin E.C. 81 MG TABEC PO (08:28)
[2021-03-05 08:41] LABS: Abs Immature Grans 0.06 10^3/uL (0.0-0.06); Absolute Basophil Count 0.02 10^3/uL (0.0-0.2); Absolute Lymphocyte Count 1.12 10^3/uL (1.2-3.4); Absolute Monocyte Count 0.49 10^3/uL (0.1-0.8); Absolute Neutrophil Count 4.91 10^3/uL (1.2-6.7); Basophils % 0.3; HCT 40.8 % (36.0-46.0); HGB 13.6 g/dL (11.2-15.7); Immature Grans % 0.9; MCH 27.8 pg (27.0-33.0); MCHC 33.3 % (32.0-36.0); MCV 83.4 fL (80-95); MPV 9.5 fL (8.0-11.0); Monocytes % 7.4; Neutrophils % 74.4; Nucleated RBC 0 %; Platelet Count 204 10^3/uL (130-400); RBC 4.89 10^6/uL (3.93-5.22); RDW 14.2 % (11.7-14.6)
[2021-03-05 08:42] LABS: Lactate 1.5 mmol/L (0.6-1.4)
[2021-03-05 09:03] LABS: Anion Gap 8.8 mmol/L (3-11); BUN 15 mg/dL (7-18); C-Reactive Protein 8.69 mg/dL (0.0-0.3); CO2 29.2 mmol/L (21.0-32.0); CREATININE 0.9 mg/dL (0.55-1.02); Calcium 8.3 mg/dL (8.5-10.1); Chloride 101 mmol/L (98-107); Creatine Kinase 87 U/L (26-192); Glucose 166 mg/dL (74-106); Magnesium 1.7 mg/dL (1.8-2.4); Sodium 139 mmol/L (136-145)
[2021-03-05 09:08] LABS: ALT 33 U/L (14-59); AST 34 U/L (15-37); Albumin 2.5 g/dL (3.4-5.0); Alkaline Phosphatase 76 U/L (46-116); Bilirubin, Direct 0.4 mg/dL (0.0-0.2); NT-proBNP 398 pg/mL (<300); Total Protein 7.1 g/dL (6.4-8.2)
[2021-03-05 09:15] LABS: D-Dimer 1437 ng/mlFEU (<500)
[2021-03-05 09:34] LABS: Procalcitonin < 0.1 ng/mL
[2021-03-05 10:02] LABS: Ferritin 388 ng/mL (8-252)
[2021-03-05] MEDS: MAGNESIUM SULFATE 2 GM/50 ML BAG IVPB (10:02)
[2021-03-05 10:29] LABS: BE 6 mmol/L (-2-3); HCO3 29 mmol/L (22-26); pCO2 35 mmHg (35-45); pH 7.52 (7.35-7.45); pO2 64 mmHg (80-105); sO2 94 % (95-98); tCO2 25 mmol/L (23-27)
[2021-03-05 10:33] LABS: FIO2L 4 L; Site Left Radial
--- NOTE | 2021-03-05 14:34 | INITIAL_ITS ---
- If Service Date Differs Date of service: 03/05/21 Time of Service: 14:34 Care Management Initial Assess REASON FOR HOSPITALIZATION:: COVID PAST MEDICAL HISTORY/PAST SURGICAL HISTORY:: Medical History. Adenocarcinoma of endometrium. Grade 1 diagnosed 2012. No surgery secondary to patient's comorbidities. Mirena IUD inserted 2012 patient has in which her biopsies every 6 months. Adenocarcinoma remains present grade 1. Benign hypertension. Chronic osteoarthritis. Coronary arteriosclerosis. Diabetes mellitus, type 2. Gastroesophageal reflux disease. Hyperlipidemia. Hypothyroidism. Morbid obesity. 05/2018 BMI 52. Obstructive sleep apnea syndrome. Surgical History. Hemicolectomy (~2003). diverticulitis, BSO performed concomittantly. anastomotic leak,reoperation, colostomy, MSA infection, wound dehiscence and closure by 2d intention. Open Carpal Tunnel release. bilateral. Replacement of total knee joint. left PREVIOUS FUNCTIONAL STATUS/SOCIAL/FAMILY SUPPORTS:: Jacki lives in [place]. Her daughter, Mercedez lives nearby. She has a brother, Perry, whom she is close to. She is independent at baseline. CURRENT FUNCTIONAL STATUS:: Jacki is currently on Covid precautions, therefore CM is unable to meet with her. CM attempted to call Jacki with no answer. CM asked the RN, who stated that she does have access to the phone, and she has been using it periodically. Her RN reported no concerns from the patient regarding discharge planning at this time. CM will continue to follow. ADVANCE DIRECTIVES:: None on file. Has patient been provided with info about the portal/API?: No Did the patient sign up for the portal?: No CODE STATUS:: Full Code INSURANCE COVERAGE / FINANCIAL ISSUES:: [facility]/ [facility] CURRENT HOME/COMMUNITY SERVICES/EQUIPMENT:: No known services or equipment. PRIMARY CARE PHYSICIAN:: Cherelle Boyce POTENTIAL DISCHARGE NEEDS:: Evaluations for further needs, such as home O2, follow up appointments. PATIENT/FAMILY EDUCATION NEEDS:: Review discharge instructions regarding activity levels and medications, discussion of self care needs including ask me three. ANTICIPATED BARRIERS TO DISCHARGE:: Need for supplemental O2. TRANSPORTATION:: Via private vehicle by family. PLAN:: Jacki is being monitored closely, and is still requiring O2. Anticipate she will return home once she is medically cleared by MD. Her family will drive her home via private vehicle. She will follow up with her PCP and discharge plan of care. CM will continue to follow.
--- NOTE | 2021-03-05 14:35 | DI.CT_ITS ---
Exam(s) CT CHEST PE CTA EXAM: CT CHEST PE CTA CLINICAL HISTORY: COVID-19, suspicion for PE. TECHNIQUE: Imaging Protocol: Axial CT angiography was performed with multi-slice acquisition and mu lti-planar and/or 3D reconstructions. CONTRAST MATERIAL: Intravenous: Omnipaque 350 Contrast volume:100 ml COMPARISON: CR,XR XR PORTABLE CHEST AP from 03/04/2021 FINDINGS: Pulmonary Arteries: No evidence of filling defect to suggest pulmonary emboli. Tracheobronchial tree: Patent where visualized. Mediastinum and Jess: Small mediastinal and hilar lymph nodes, reactive. Pulmonary parenchyma: Bilateral upper and lower lobe peripheral infiltrates, right greater than left. Findings are compatible with [place] 19 pneumonia. Pleura: No effusion or pneumothorax. Heart: The heart is not dilated. Mild coronary artery calcifications are seen. Aorta: Thoracic aorta non-dilated. Mild atherosclerotic changes. Upper abdomen: Unremarkable. Bones: Degenerative disc changes. Tubes, Catheters, and Lines: None IMPRESSION: Bilateral pneumonia. No evidence of pulmonary embolism. RADIATION DOSE DELIVERED: 619.31mGy.cm Total DLP DATA REPOSITORY: All CT scans at this facility are submitted to the National Radiology Data Registry (NRDR) Dose Index Registry (DIR) with the [employer] (A[employer]). RADIATION OPTIMIZATION: All CT scans at this facility use at least one of these dose optimization te chniques: automated exposure control; mA and/or kV adjustment per patient size (includes targeted exa ms where dose is matched to clinical indication); or iterative reconstruction.
[2021-03-05] MEDS: Omnipaque 350 MG/ML 100 ML BTL IV (14:38)
--- NOTE | 2021-03-05 14:38 | PUCON_ITS ---
General Date Of Service Date of service: 03/05/21 Time of Service: 11:00 Reason for Consult: COVID 19 Assessment and Plan Assessment and plan (1) COVID: Status: Acute (2) Obstructive sleep apnea syndrome: Status: Chronic Assessment and plan: This is a vaccinated 66-year-old female who was admitted for Covid pneumonia. She does have slight elevations in her i nflammatory markers and is almost 2 weeks out from initial symptoms. She has been maintained on remdesivir, Decadron and baricitinib. She appears to be doing quite well and is ambulatory. On her CAT scan today I cannot see any evidence of clot formation but I do see significant parenchymal infiltrates that are consistent with Covid pneumonia. Given that she is almost 2 weeks out of her initial symptoms it is unlikely that her viral replication rate is elevated particularly in this immunocompetent patient so I am unsure of the efficacy of giving remdesivir however I do think Decadron and baricitinib are helping. There is no indication that there is a bacterial superinfection clinically and her procalcitonin was negative. She does hold the diagnosis of MELONY however was not willing to wear the mask at home. Upon discussion she is willing to wear CPAP at night while hospitalized to try and help recover from the Covid. COVID-19 Pneumonia - agree with Decadron and barcitinib - remdesivir is unlikely to be beneficial at this point in her time course - agree with IS and VibraPEP - patient states she is unable to prone - ambulation as tolerated - CPAP at night - negative fluid balance in 24 hours time - Lovenox for DVT ppx History of Present Illness Narrative: This is a 66-year-old female with past medical history of grade 1 endometrial cancer who was admitted for Covid pneumonia. She is vaccinated however had exposure to several unvaccinated family members who were not extre kelsey compliant with masking and hand hygiene. She presented after just over a week of symptoms including fever, cough, shortness of breath and fatigue. She was diagnosed and was caring for herself at home and was given a pulse oximeter. She presented to the emergency department when her home saturations dropped to 89%. There was an ABG performed this morning that showed a respiratory alkalosis and there was some concern about the potential for PE so the patient underwent CT scanning to assess for this. The read is not back but from my assessment there is significant abnormalities in the parenchyma consistent with COVID-19 pneumonia. There is no significant pulmonary embolism that I can see. Today she states she is feeling improved. She is ambulating in her room. She does have some shortness of breath especially upon walking. She does have a cough and fatigue. Review of Systems All systems reviewed & are unremarkable except as noted in HPI and below PFSH Medical History (Updated 03/05/21 @ 14:47 by Estela Aragon MD) Adenocarcinoma of endometrium Grade 1 diagnosed 2012. No surgery secondary to patient's comorbidities. Mirena IUD inserted 2012 patient has in which her biopsies every 6 months. Adenocarcinoma remains present grade 1 Benign hypertension Chronic osteoarthritis Coronary arteriosclerosis Diabetes mellitus, type 2 Gastroesophageal reflux disease Hyperlipidemia Hypothyroidism Morbid obesity 05/2018 BMI 52 Obstructive sleep apnea syndrome MELONY (obstructive sleep apnea) (10/31/17) Surgical History Hemicolectomy (~2003) diverticulitis, BSO performed concomittantly. anastomotic leak,reoperation, colostomy, MSA infection, wound dehiscence and closure by 2d intention. Open Carpal Tunnel release bilateral Replacement of total knee joint left Family History Mother Hypertensive disorder, systemic arterial Father Acute poliomyelitis Brother Hypertensive disorder, systemic arterial Diabetes Brother Diabetes Personal history of malignant neoplasm Social History Smoking/Tobacco Use Status: Never Smoking risk assessment performed?: Yes Alcohol Intake: never Drug use: Never Substance use type: does not use Number of Children: 1 current occupation: Not working secondary to disabilities Seatbelt use: always Do you feel safe at home: Yes Do you feel safe in your relationship?: Yes History History 1 Para Hx # Term Pregnancies Multiple births Hx # Pregnancies Ectopic pregnancies AB induced Hx Number of Living Children 1 AB spontaneous Visit Medication and Allergies Active Medications Generic Name Dose Route Start Last Admin Trade Name Freq PRN Reason Stop Dose Admin Acetaminophen 650 mg 03/04/21 23:15 Acetaminophen 325 Mg Tab PO Q4H PRN PRN Albuterol Sulfate 2 puff 03/05/21 09:12 Albuterol Hfa 8 Gm 60 Puff Inh IH Q4H PRN PRN Amlodipine Besylate 5 mg 03/05/21 08:30 03/05/21 08:27 Amlodipine 5 Mg Tab PO 5 mg DAILY KERMIT Administration Ascorbic Acid 1,000 mg 03/05/21 08:30 03/05/21 08:28 Ascorbic Acid 500 Mg Tab PO 1,000 mg BID KERMIT Administration Aspirin 81 mg 03/05/21 08:30 03/05/21 08:28 Aspirin E.C. 81 Mg Tabec PO 81 mg DAILY KERMIT Administration Atenolol 100 mg 03/05/21 08:30 03/05/21 08:28 Atenolol 50 Mg Tab PO 100 mg DAILY KERMIT Administration Baricitinib 2 mg 03/05/21 08:30 03/05/21 08:27 Baricitinib 1 Mg Tab PO 2 mg DAILY KERMIT Administration Bupropion HCl 150 mg 03/06/21 08:30 Bupropion-Xl 150 Mg Tabcr PO DAILY [facility] Cholecalciferol 2,000 units 03/05/21 08:30 03/05/21 08:27 Cholecalciferol (Vitamin D3) 1,000 Unit Tab PO 2,000 units DAILY [facility] Administration Device 1 each 03/05/21 10:00 Inhaler, Assist Device MC DIRECTED [facility] Dexamethasone 6 mg 03/05/21 08:30 03/05/21 08:27 Dexamethasone 4 Mg Tab PO 6 mg DAILY [facility] Administration Dextrose 0 gm 03/04/21 23:19 Glucose 40% Oral Solution 15 Gm/37.5 Gm Tube PO DIRECTED PRN Dextrose/Water 0 gm 03/04/21 23:19 Dextrose 50%-Water 25 Gm/50 Ml Syr IVP DIRECTED PRN Dimethicone/Zinc Oxide 0 gm 03/04/21 23:15 Lara Protect Cream 142 Gm Tube TP PRN PRN Enoxaparin Sodium 40 mg 03/05/21 08:00 03/05/21 08:26 Enoxaparin 40 Mg/0.4 Ml Syr SC 40 mg Q24H [facility] Administration Remdesivir 100 mg/ Sodium 100 mls @ 100 mls/hr 03/05/21 20:00 Chloride IVPB 03/08/21 20:59 Q24H [facility] Ibuprofen 200 mg 03/04/21 23:30 Ibuprofen 200 Mg Tab PO Q6H PRN [facility]ERMIT Insulin Aspart 0 units 03/05/21 08:00 03/05/21 12:02 Insulin Aspart 300 Units/3 Ml Pen SC 2 unit 0800,1200,1700,2200 KERMIT Administration Protocol Levothyroxine Sodium 25 mcg 03/05/21 06:00 03/05/21 06:02 Levothyroxine 25 Mcg Tab PO 25 mcg 0600 [facility]ERMIT Administration Loratadine 10 mg 03/05/21 08:30 03/05/21 08:28 Loratidine 10 Mg Tab PO 10 mg DAILY [facility]ER[facility] Administration Melatonin 3 - 6 mg 03/04/21 23:15 Melatonin 3 Mg Tab PO HS PRN PRN Pantoprazole Sodium 40 mg 03/06/21 07:30 Pantoprazole 40 Mg Tabcr PO DAILY@0730 [facility]ER[facility] Potassium Chloride 40 meq 03/05/21 20:00 Potassium Chloride 20 Meq Tabcr PO 03/06/21 20:01 BID KERMIT Simvastatin 20 mg 03/05/21 08:30 03/05/21 08:27 Simvastatin 20 Mg Tab PO 20 mg DAILY KERMIT Administration Allergies ranitidine Allergy (Mild, Verified 03/04/21 19:52) HIVES CATS Allergy (Uncoded 03/04/21 19:52) RASH/ITCHING/BREATHING DIFFICULTIES FUMES Allergy (Uncoded 03/04/21 19:52) BREATHING DIFFICULTIES PLASTIC Allergy (Uncoded 03/04/21 19:52) RASH Exam Const General: no acute distress Nutritional Appearance: obese HENAK Head: normocephalic Ears: external ears normal and no periauricular adenopathy General nose exam: nasal mucous membranes and turbinates normal Face and sinus: sinuses nontender Mouth: oropharynx normal and moist mucous membranes Teeth and gingiva: dentition normal Eyes General: appearance normal, both eyes and all related structures Pupils: PERRL Neck Neck: normal visual inspection and no lymphadenopathy Chest Chest: normal inspection of the chest Resp Effort & Inspection: normal respiratory effort Auscultation: diminished lung sounds, no rales, no rhonchi and no wheezes Cardio Rate: regular rate Rhythm: regular rhythm Heart Sounds: S1 normal, S2 normal and no murmurs Pulses: radial pulses present bilaterally GI Inspection: normal to inspection Palpation: soft Skin General skin exam: no rashes or lesions noted Neuro General: patient alert, patient awake and patient oriented x3 Extrem General: no clubbing, cyanosis or edema Psych Mental Status: mental status grossly normal Affect: normal affect Attitude: cooperative Results Last Vital Signs Temp 36.8 C 03/05/21 11:58 Pulse 74 03/05/21 11:58 Resp 18 03/05/21 11:58 BP 124/82 03/05/21 11:58 Pulse Ox 96 03/05/21 11:58 Labs Result diagrams: 03/05/21 08:35 03/05/21 08:35 Labs: Laboratory Results - last 24 hr 03/04/21 03/04/21 03/04/21 20:50 20:50 20:50 WBC 8.35 RBC 5.13 Hgb 14.4 Hct 43.4 MCV 84.6 MCH 28.1 MCHC 33.2 RDW 14.2 Plt Count 206 MPV 9.7 Immature Gran % 0.8 Neutrophils % 73.6 Lymphocytes % 14.3 Monocytes % 9.5 Eosinophils % 1.6 Basophils % 0.2 Nucleated RBC % 0 Absolute Neutrophils 6.15 Absolute Lymphocytes 1.19 L Absolute Monocytes 0.79 Absolute Eosinophils 0.13 Absolute Basophils 0.02 D-Dimer ABG Sample Site ABG pH ABG pCO2 ABG pO2 ABG HCO3 ABG Total CO2 ABG O2 Saturation ABG Base Excess VBG Lactate Oxygen Liter Flow Sodium 139 Potassium 3.3 L Chloride 100 Carbon Dioxide 32.2 H Anion Gap 6.8 BUN 16 Creatinine 1.0 Estimated GFR/1.73 m2 55.14 Glucose 132 H Calcium 8.5 Magnesium 1.7 L Ferritin 433 H Total Bilirubin 1.2 H Conjugated Bilirubin AST 54 H ALT 40 Alkaline Phosphatase 91 Lactate Dehydrogenase 309 H Creatine Kinase Troponin I C-Reactive Protein 9.07 H NT-Pro-B Natriuret Pep Total Protein 7.1 Albumin 2.8 L Procalcitonin COVID-19 Source SARS-CoV-2 (PCR) 03/04/21 03/04/21 03/04/21 20:50 20:50 20:50 WBC RBC Hgb Hct MCV MCH MCHC RDW Plt Count MPV Immature Gran % Neutrophils % Lymphocytes % Monocytes % Eosinophils % Basophils % Nucleated RBC % Absolute Neutrophils Absolute Lymphocytes Absolute Monocytes Absolute Eosinophils Absolute Basophils D-Dimer 1337 H ABG Sample Site ABG pH ABG pCO2 ABG pO2 ABG HCO3 ABG Total CO2 ABG O2 Saturation ABG Base Excess VBG Lactate 1.3 Oxygen Liter Flow Sodium Potassium Chloride Carbon Dioxide Anion Gap BUN Creatinine Estimated GFR/1.73 m2 Glucose Calcium Magnesium Ferritin Total Bilirubin Conjugated Bilirubin AST ALT Alkaline Phosphatase Lactate Dehydrogenase Creatine Kinase Troponin I < 0.05 C-Reactive Protein NT-Pro-B Natriuret Pep Total Protein Albumin Procalcitonin COVID-19 Source SARS-CoV-2 (PCR) 03/05/21 03/05/21 03/05/21 00:30 08:35 08:35 WBC RBC Hgb Hct MCV MCH MCHC RDW Plt Count MPV Immature Gran % Neutrophils % Lymphocytes % Monocytes % Eosinophils % Basophils % Nucleated RBC % Absolute Neutrophils Absolute Lymphocytes Absolute Monocytes Absolute Eosinophils Absolute Basophils D-Dimer ABG Sample Site ABG pH ABG pCO2 ABG pO2 ABG HCO3 ABG Total CO2 ABG O2 Saturation ABG Base Excess VBG Lactate Oxygen Liter Flow Sodium 139 Potassium 3.0 L Chloride 101 Carbon Dioxide 29.2 Anion Gap 8.8 BUN 15 Creatinine 0.9 Estimated GFR/1.73 m2 >= 60.00 Glucose 166 H Calcium 8.3 L Magnesium 1.7 L Ferritin 388 H Total Bilirubin 1.0 Conjugated Bilirubin 0.4 H AST 34 ALT 33 Alkaline Phosphatase 76 Lactate Dehydrogenase Creatine Kinase 87 Troponin I C-Reactive Protein 8.69 H NT-Pro-B Natriuret Pep 398 H Total Protein 7.1 Albumin 2.5 L Procalcitonin COVID-19 Source Nasal/Nares SARS-CoV-2 (PCR) POSITIVE A* 03/05/21 03/05/21 03/05/21 08:35 08:35 08:35 WBC 6.60 RBC 4.89 Hgb 13.6 Hct 40.8 MCV 83.4 MCH 27.8 MCHC 33.3 RDW 14.2 Plt Count 204 MPV 9.5 Immature Gran % 0.9 Neutrophils % 74.4 Lymphocytes % 17.0 Monocytes % 7.4 Eosinophils % 0.0 Basophils % 0.3 Nucleated RBC % 0 Absolute Neutrophils 4.91 Absolute Lymphocytes 1.12 L Absolute Monocytes 0.49 Absolute Eosinophils 0.00 Absolute Basophils 0.02 D-Dimer 1437 H ABG Sample Site ABG pH ABG pCO2 ABG pO2 ABG HCO3 ABG Total CO2 ABG O2 Saturation ABG Base Excess VBG Lactate 1.5 H Oxygen Liter Flow Sodium Potassium Chloride Carbon Dioxide Anion Gap BUN Creatinine Estimated GFR/1.73 m2 Glucose Calcium Magnesium Ferritin Total Bilirubin Conjugated Bilirubin AST ALT Alkaline Phosphatase Lactate Dehydrogenase Creatine Kinase Troponin I C-Reactive Protein NT-Pro-B Natriuret Pep Total Protein Albumin Procalcitonin < 0.1 COVID-19 Source SARS-CoV-2 (PCR) 03/05/21 10:27 WBC RBC Hgb Hct MCV MCH MCHC RDW Plt Count MPV Immature Gran % Neutrophils % Lymphocytes % Monocytes % Eosinophils % Basophils % Nucleated RBC % Absolute Neutrophils Absolute Lymphocytes Absolute Monocytes Absolute Eosinophils Absolute Basophils D-Dimer ABG Sample Site Left Radial ABG pH 7.52 H ABG pCO2 35 ABG pO2 64 L ABG HCO3 29 H ABG Total CO2 25 ABG O2 Saturation 94 L ABG Base Excess 6 H VBG Lactate Oxygen Liter Flow 4 Sodium Potassium Chloride Carbon Dioxide Anion Gap BUN Creatinine Estimated GFR/1.73 m2 Glucose Calcium Magnesium Ferritin Total Bilirubin Conjugated Bilirubin AST ALT Alkaline Phosphatase Lactate Dehydrogenase Creatine Kinase Troponin I C-Reactive Protein NT-Pro-B Natriuret Pep Total Protein Albumin Procalcitonin COVID-19 Source SARS-CoV-2 (PCR)
[2021-03-05] MEDS: cefTRIAXone 2 GM/50 ML BAG IVPB (18:34)
[2021-03-05] MEDS: Normal Saline Flush 10 ML SYR (18:35)
--- NOTE | 2021-03-05 19:23 | W.PM.PROGNOT ---
Date of Service Date of service: 03/05/21 Time of Service: 16:30 Assessment and Plan Assessment and plan (1) Pneumonia due to 2019 novel coronavirus: Status: Acute Assessment and plan: Continue remdesivir/dexamethasone. I added baricitinib. Wean O2 as tolerated. (2) Bacterial pneumonia: Status: Acute Assessment and plan: Add ceftriaxone/doxycycline (3) Hypokalemia: Status: Acute Assessment and plan: Replete and recheck in am (4) Hypomagnesemia: Status: Acute Assessment and plan: Replete and recheck in am (5) Type 2 diabetes mellitus with complication: Status: Acute Assessment and plan: Cover with SSI (6) Obstructive sleep apnea syndrome: Status: Chronic Assessment and plan: Offer CPAP tonight (7) DVT prophylaxis: Status: Acute Assessment and plan: SC lovenox (8) Discharge planning issues: Status: Acute Assessment and plan: Full code Discussed with Dr Aragon Continues to require hospitalization Subjective Subjective Interval history since last seen: Ms Jimenez states she is feeling a little better. Her sputum had been blood tinged, but is clear now. Denies dizziness, endorses chest pain from coughing, denies shortness of breath at rest, denies n/v. Her sense of taste is back. Exam Narrative Exam Narrative: General: Pleaseant obese female, A&Ox3, no dyspneic/tachypneic/cyanotic on 3L of O2 by NC HEENT: EOMI, MMM Heart: RRR, no m/r/g Lungs: crackles at B bases Abdomen: soft, nontender, nondistended Extremities: no edema BLE's Objective Last Vital Signs Temp 36.8 C 03/05/21 17:22 Pulse 81 03/05/21 17:22 Resp 18 03/05/21 17:22 BP 120/79 03/05/21 17:22 Pulse Ox 95 03/05/21 17:22 Laboratory Results - last 24 hr 03/04/21 03/04/21 03/04/21 20:50 20:50 20:50 WBC 8.35 RBC 5.13 Hgb 14.4 Hct 43.4 MCV 84.6 MCH 28.1 MCHC 33.2 RDW 14.2 Plt Count 206 MPV 9.7 Immature Gran % 0.8 Neutrophils % 73.6 Lymphocytes % 14.3 Monocytes % 9.5 Eosinophils % 1.6 Basophils % 0.2 Nucleated RBC % 0 Absolute Neutrophils 6.15 Absolute Lymphocytes 1.19 L Absolute Monocytes 0.79 Absolute Eosinophils 0.13 Absolute Basophils 0.02 D-Dimer ABG Sample Site ABG pH ABG pCO2 ABG pO2 ABG HCO3 ABG Total CO2 ABG O2 Saturation ABG Base Excess VBG Lactate Oxygen Liter Flow Sodium 139 Potassium 3.3 L Chloride 100 Carbon Dioxide 32.2 H Anion Gap 6.8 BUN 16 Creatinine 1.0 Estimated GFR/1.73 m2 55.14 Glucose 132 H Calcium 8.5 Magnesium 1.7 L Ferritin 433 H Total Bilirubin 1.2 H Conjugated Bilirubin AST 54 H ALT 40 Alkaline Phosphatase 91 Lactate Dehydrogenase 309 H Creatine Kinase Troponin I C-Reactive Protein 9.07 H NT-Pro-B Natriuret Pep Total Protein 7.1 Albumin 2.8 L Procalcitonin COVID-19 Source SARS-CoV-2 (PCR) 03/04/21 03/04/21 03/04/21 20:50 20:50 20:50 WBC RBC Hgb Hct MCV MCH MCHC RDW Plt Count MPV Immature Gran % Neutrophils % Lymphocytes % Monocytes % Eosinophils % Basophils % Nucleated RBC % Absolute Neutrophils Absolute Lymphocytes Absolute Monocytes Absolute Eosinophils Absolute Basophils D-Dimer 1337 H ABG Sample Site ABG pH ABG pCO2 ABG pO2 ABG HCO3 ABG Total CO2 ABG O2 Saturation ABG Base Excess VBG Lactate 1.3 Oxygen Liter Flow Sodium Potassium Chloride Carbon Dioxide Anion Gap BUN Creatinine Estimated GFR/1.73 m2 Glucose Calcium Magnesium Ferritin Total Bilirubin Conjugated Bilirubin AST ALT Alkaline Phosphatase Lactate Dehydrogenase Creatine Kinase Troponin I < 0.05 C-Reactive Protein NT-Pro-B Natriuret Pep Total Protein Albumin Procalcitonin COVID-19 Source SARS-CoV-2 (PCR) 03/05/21 03/05/21 03/05/21 00:30 08:35 08:35 WBC RBC Hgb Hct MCV MCH MCHC RDW Plt Count MPV Immature Gran % Neutrophils % Lymphocytes % Monocytes % Eosinophils % Basophils % Nucleated RBC % Absolute Neutrophils Absolute Lymphocytes Absolute Monocytes Absolute Eosinophils Absolute Basophils D-Dimer ABG Sample Site ABG pH ABG pCO2 ABG pO2 ABG HCO3 ABG Total CO2 ABG O2 Saturation ABG Base Excess VBG Lactate Oxygen Liter Flow Sodium 139 Potassium 3.0 L Chloride 101 Carbon Dioxide 29.2 Anion Gap 8.8 BUN 15 Creatinine 0.9 Estimated GFR/1.73 m2 >= 60.00 Glucose 166 H Calcium 8.3 L Magnesium 1.7 L Ferritin 388 H Total Bilirubin 1.0 Conjugated Bilirubin 0.4 H AST 34 ALT 33 Alkaline Phosphatase 76 Lactate Dehydrogenase Creatine Kinase 87 Troponin I C-Reactive Protein 8.69 H NT-Pro-B Natriuret Pep 398 H Total Protein 7.1 Albumin 2.5 L Procalcitonin COVID-19 Source Nasal/Nares SARS-CoV-2 (PCR) POSITIVE A* 03/05/21 03/05/21 03/05/21 08:35 08:35 08:35 WBC 6.60 RBC 4.89 Hgb 13.6 Hct 40.8 MCV 83.4 MCH 27.8 MCHC 33.3 RDW 14.2 Plt Count 204 MPV 9.5 Immature Gran % 0.9 Neutrophils % 74.4 Lymphocytes % 17.0 Monocytes % 7.4 Eosinophils % 0.0 Basophils % 0.3 Nucleated RBC % 0 Absolute Neutrophils 4.91 Absolute Lymphocytes 1.12 L Absolute Monocytes 0.49 Absolute Eosinophils 0.00 Absolute Basophils 0.02 D-Dimer 1437 H ABG Sample Site ABG pH ABG pCO2 ABG pO2 ABG HCO3 ABG Total CO2 ABG O2 Saturation ABG Base Excess VBG Lactate 1.5 H Oxygen Liter Flow Sodium Potassium Chloride Carbon Dioxide Anion Gap BUN Creatinine Estimated GFR/1.73 m2 Glucose Calcium Magnesium Ferritin Total Bilirubin Conjugated Bilirubin AST ALT Alkaline Phosphatase Lactate Dehydrogenase Creatine Kinase Troponin I C-Reactive Protein NT-Pro-B Natriuret Pep Total Protein Albumin Procalcitonin < 0.1 COVID-19 Source SARS-CoV-2 (PCR) 03/05/21 10:27 WBC RBC Hgb Hct MCV MCH MCHC RDW Plt Count MPV Immature Gran % Neutrophils % Lymphocytes % Monocytes % Eosinophils % Basophils % Nucleated RBC % Absolute Neutrophils Absolute Lymphocytes Absolute Monocytes Absolute Eosinophils Absolute Basophils D-Dimer ABG Sample Site Left Radial ABG pH 7.52 H ABG pCO2 35 ABG pO2 64 L ABG HCO3 29 H ABG Total CO2 25 ABG O2 Saturation 94 L ABG Base Excess 6 H VBG Lactate Oxygen Liter Flow 4 Sodium Potassium Chloride Carbon Dioxide Anion Gap BUN Creatinine Estimated GFR/1.73 m2 Glucose Calcium Magnesium Ferritin Total Bilirubin Conjugated Bilirubin AST ALT Alkaline Phosphatase Lactate Dehydrogenase Creatine Kinase Troponin I C-Reactive Protein NT-Pro-B Natriuret Pep Total Protein Albumin Procalcitonin COVID-19 Source SARS-CoV-2 (PCR) Objective Narrative Objective Narrative: CTA chest: Bilateral pneumonia. No evidence of pulmonary embolism.
[2021-03-05] MEDS: DOXYCYCLINE 100 MG in Normal Saline 100 ML IVPB (20:42)
[2021-03-05] MEDS: Potassium Chloride 20 MEQ TABCR 40 MEQ PO (20:42)
[2021-03-05] MEDS: Normal Saline Flush 10 ML SYR IVP ×2 (20:45→22:33)
[2021-03-06] VITALS (9 sets, daily range): BP systolic 102–116; BP diastolic 52–70; PULSE 58–72; RESP 18; TEMP 36.4–36.6; O2SAT 91–95
[2021-03-06] MEDS: DOXYCYCLINE 100 MG in Normal Saline 100 ML IVPB ×2 (06:34→17:40)
[2021-03-06] MEDS: Levothyroxine 25 MCG TAB PO (06:34)
[2021-03-06] MEDS: Normal Saline Flush 10 ML SYR IVP ×2 (06:34→17:40)
[2021-03-06 07:15] LABS: Abs Immature Grans 0.08 10^3/uL (0.0-0.06); Absolute Eosinophil Count 0.11 10^3/uL (0.0-0.7); Absolute Monocyte Count 0.95 10^3/uL (0.1-0.8); Basophils % 0.2; Eosinophils % 0.9; HCT 44.1 % (36.0-46.0); HGB 14.3 g/dL (11.2-15.7); Immature Grans % 0.7; Lactate 1.8 mmol/L (0.6-1.4); Lymphocytes % 20.2; MCHC 32.4 % (32.0-36.0); MCV 86.3 fL (80-95); MPV 10.1 fL (8.0-11.0); Monocytes % 7.7; Neutrophils % 70.3; Nucleated RBC 0 %; Platelet Count 292 10^3/uL (130-400); RBC 5.11 10^6/uL (3.93-5.22); RDW 14.2 % (11.7-14.6); RDW-SD 45.1 fL
[2021-03-06 07:16] LABS: Absolute Basophil Count 0.02 10^3/uL (0.0-0.2); Absolute Lymphocyte Count 2.48 10^3/uL (1.2-3.4); Absolute Neutrophil Count 8.65 10^3/uL (1.2-6.7)
[2021-03-06 07:33] LABS: ALT 36 U/L (14-59); AST 42 U/L (15-37); Albumin 2.6 g/dL (3.4-5.0); Alkaline Phosphatase 86 U/L (46-116); Anion Gap 4.2 mmol/L (3-11); BUN 23 mg/dL (7-18); Bilirubin, Direct 0.3 mg/dL (0.0-0.2); Bilirubin, Total 0.5 mg/dL (0.2-1.0); C-Reactive Protein 5.76 mg/dL (0.0-0.3); CO2 33.8 mmol/L (21.0-32.0); CREATININE 1.1 mg/dL (0.55-1.02); Calcium 8.6 mg/dL (8.5-10.1); Chloride 105 mmol/L (98-107); Estimated GFR 49.39 (mL/min/1.73m2); Glucose 142 mg/dL (74-106); Magnesium 2.1 mg/dL (1.8-2.4); Potassium 3.7 mmol/L (3.5-5.1); Sodium 143 mmol/L (136-145); Total Protein 7.3 g/dL (6.4-8.2)
[2021-03-06 08:13] LABS: Ferritin 425 ng/mL (8-252)
[2021-03-06] MEDS: Enoxaparin 40 MG/0.4 ML SYR SC (08:52)
[2021-03-06] MEDS: Ascorbic Acid 500 MG TAB 1000 MG PO ×2 (08:53→20:51)
[2021-03-06] MEDS: Insulin Aspart 300 UNITS/3 ML PEN SC ×4 (08:53→22:27)
[2021-03-06] MEDS: Pantoprazole 40 MG TABCR PO (08:54)
[2021-03-06] MEDS: Loratidine 10 MG TAB PO (08:54)
[2021-03-06] MEDS: Potassium Chloride 20 MEQ TABCR 40 MEQ PO ×2 (08:54→20:51)
[2021-03-06] MEDS: Dexamethasone 4 MG TAB 6 MG PO (08:54)
[2021-03-06] MEDS: Simvastatin 20 MG TAB PO (08:54)
[2021-03-06] MEDS: Atenolol 50 MG TAB 100 MG PO (08:54)
[2021-03-06] MEDS: Cholecalciferol (Vitamin D3) 1,000 UNIT TAB 2000 UNITS PO (08:54)
[2021-03-06] MEDS: amLODIPine 5 MG TAB PO (08:54)
[2021-03-06] MEDS: buPROPion-XL 150 MG TABCR PO (08:54)
[2021-03-06] MEDS: Aspirin E.C. 81 MG TABEC PO (08:54)
--- NOTE | 2021-03-06 12:12 | DM INPTCON_ITS ---
Date of service: 03/06/21 Time of Service: 12:13 Diabetes Inpatient Consult DESCRIPTION/ASSESSMENT: Assessment: Jacki in acute care due to COVID-related PNA with a significant nutrition- related medical history of HTN, HDL, GERD, Morbid obesity, DMII, and s/p hemicolectomy 2003. Pertinent medications include 1g metformin and 2,000IU Vitamin D daily. Current BMI (47.2 kg/m2) continues to correlate to morbid obesity, which exacerbates many of her comorbidities. Jacki?s A1C today (7.0%) translates to good control. Vitamin D levels in the lower range of normal. Good PO intake (100% of meals) on HH/CHO-consistent diet order. Despite her current BMI, it is noted that Jacki has lost ~11kg since March 2019. Diagnosis: Morbid obesity as evidenced by BMI >40. Inadequate intake of micronutrients as outlined in previous outpatient nutrition notes identifying depression, low nutrition knowledge and stressful living environment all contributing to inconsistent intake. Intervention: Due to current infectious state due to COVID unable to visit pt for delivery of diabetes/wt mgt education. Monitoring/Evaluation: Recommend referral to outpatient nutrition services for weight reduction and diabetes MNT as part of pt?s discharge plan. Will continue to monitor po intake and any significant nutrition-related labs for changes requiring further internvention. Time Spent in Nutritional Counseling and Treatment: 15
--- NOTE | 2021-03-06 13:32 | CMPROGNOTE_ITS ---
- If Service Date Differs Date of service: 03/06/21 Time of Service: 13:43 Care Management Progress Note S/O: CM spoke to Jacki over the phone today, as she remains on Covid precautions. Jacki stated that she is feeling better than when she arrived. She continues to require supplemental O2, and feels that she is coughing more today. She reported that she spoke to her daughter today, who lives with her. She stated that if her daughter is working when she is discharged, she will have another family member drive her home. CM will continue to follow. A: Jacki is a 66 year old female admitted to [facility] on 03/04/21 with Covid. P: Jacki is being monitored closely, and is still requiring O2. Anticipate she will return home once she is medically cleared by . Her family will drive her home via private vehicle. She will follow up with her PCP and discharge plan of care. CM will continue to follow.
--- NOTE | 2021-03-06 16:59 | W.PM.PROGNOT ---
Date of Service Date of service: 03/06/21 Time of Service: 17:13 Assessment and Plan Assessment and plan (1) Pneumonia due to 2019 novel coronavirus: Status: Acute Assessment and plan: Continue remdesivir/dexamethasone/baricitinib. Wean O2 as tolerated. (2) Bacterial pneumonia: Status: Acute Assessment and plan: Continue ceftriaxone/doxycycline (3) Hypokalemia: Status: Resolved Assessment and plan: recheck in am (4) Hypomagnesemia: Status: Acute Assessment and plan: recheck in am (5) Type 2 diabetes mellitus with complication: Status: Acute Assessment and plan: Cover with SSI (6) Obstructive sleep apnea syndrome: Status: Chronic Assessment and plan: refused CPAP. (7) DVT prophylaxis: Status: Acute Assessment and plan: SC lovenox (8) Discharge planning issues: Status: Acute Assessment and plan: Full code Continues to require hospitalization Subjective Subjective Interval history since last seen: Less short of breath today. Things taste better. My taste buds came back! Denies dizziness, chest pain. Cough is nonproductive. Declines antitussives. Denies n/v/diarrhea. Actually constipated. Down to 2L of O2 saturating in high 90s. Exam Narrative Exam Narrative: Today's visit happened over the phone due to patient's improvement and her diagnosis of COVID-19. Fluent speech, no dyspnea/tachypnea. Bright affect. Objective Last Vital Signs Temp 36.6 C 03/06/21 08:49 Pulse 58 L 03/06/21 08:49 Resp 18 03/06/21 08:49 BP 116/70 03/06/21 08:49 Pulse Ox 95 03/06/21 11:22 Laboratory Results - last 24 hr 03/06/21 03/06/21 03/06/21 07:04 07:04 07:04 WBC 12.30 H D RBC 5.11 Hgb 14.3 Hct 44.1 MCV 86.3 MCH 28.0 MCHC 32.4 RDW 14.2 Plt Count 292 MPV 10.1 Immature Gran % 0.7 Neutrophils % 70.3 Lymphocytes % 20.2 Monocytes % 7.7 Eosinophils % 0.9 Basophils % 0.2 Nucleated RBC % 0 Absolute Neutrophils 8.65 H Absolute Lymphocytes 2.48 Absolute Monocytes 0.95 H Absolute Eosinophils 0.11 Absolute Basophils 0.02 VBG Lactate 1.8 H Sodium 143 Potassium 3.7 D Chloride 105 Carbon Dioxide 33.8 H Anion Gap 4.2 BUN 23 H Creatinine 1.1 H Estimated GFR/1.73 m2 49.39 Glucose 142 H Hemoglobin A1c Calcium 8.6 Magnesium 2.1 Ferritin 425 H Total Bilirubin 0.5 Conjugated Bilirubin 0.3 H AST 42 H ALT 36 Alkaline Phosphatase 86 C-Reactive Protein 5.76 H Total Protein 7.3 Albumin 2.6 L 03/06/21 07:04 WBC RBC Hgb Hct MCV MCH MCHC RDW Plt Count MPV Immature Gran % Neutrophils % Lymphocytes % Monocytes % Eosinophils % Basophils % Nucleated RBC % Absolute Neutrophils Absolute Lymphocytes Absolute Monocytes Absolute Eosinophils Absolute Basophils VBG Lactate Sodium Potassium Chloride Carbon Dioxide Anion Gap BUN Creatinine Estimated GFR/1.73 m2 Glucose Hemoglobin A1c 7.0 H Calcium Magnesium Ferritin Total Bilirubin Conjugated Bilirubin AST ALT Alkaline Phosphatase C-Reactive Protein Total Protein Albumin
[2021-03-06] MEDS: Docusate Sodium 100 MG/10 ML CUP PO (17:40)
[2021-03-06] MEDS: cefTRIAXone 2 GM/50 ML BAG IVPB (18:49)
[2021-03-07] VITALS (10 sets, daily range): BP systolic 106–124; BP diastolic 65–70; PULSE 61–82; RESP 16–24; TEMP 36–36.6; O2SAT 89–95
--- NOTE | 2021-03-07 02:28 | NUR.NOTE ---
@ [address] CPAP machine on patient, mask was placed on patients face for approximately 5 minutes then patient started complaining that the machine is not working right and she does not want to wear device. This RN educated patient on the benefits of wearing such device, she stated she doesn't wear the one she has at home either. patient is currently on 3L sating 94%
[2021-03-07] MEDS: Levothyroxine 25 MCG TAB PO (06:45)
[2021-03-07] MEDS: DOXYCYCLINE 100 MG in Normal Saline 100 ML IVPB (06:45)
[2021-03-07 07:51] LABS: Absolute Basophil Count 0.03 10^3/uL (0.0-0.2); Absolute Eosinophil Count 0.08 10^3/uL (0.0-0.7); Absolute Lymphocyte Count 1.59 10^3/uL (1.2-3.4); Absolute Neutrophil Count 7.91 10^3/uL (1.2-6.7); Basophils % 0.3; Eosinophils % 0.8; Immature Grans % 1.9; MCH 27.5 pg (27.0-33.0); MCHC 31.7 % (32.0-36.0); MCV 86.9 fL (80-95); MPV 10.1 fL (8.0-11.0); Monocytes % 7.5; Neutrophils % 74.5; Nucleated RBC 0 %; Platelet Count 290 10^3/uL (130-400); RBC 4.72 10^6/uL (3.93-5.22); RDW 14.2 % (11.7-14.6); RDW-SD 45.5 fL; WBC 10.61 10^3/uL (4.4-10.8)
[2021-03-07 08:14] LABS: ALT 55 U/L (14-59); AST 58 U/L (15-37); Albumin 2.4 g/dL (3.4-5.0); Alkaline Phosphatase 82 U/L (46-116); BUN 25 mg/dL (7-18); Bilirubin, Direct 0.2 mg/dL (0.0-0.2); Bilirubin, Total 0.4 mg/dL (0.2-1.0); C-Reactive Protein 2.79 mg/dL (0.0-0.3); Calcium 8.4 mg/dL (8.5-10.1); Chloride 106 mmol/L (98-107); Estimated GFR 55.14 (mL/min/1.73m2); Glucose 149 mg/dL (74-106); Magnesium 1.9 mg/dL (1.8-2.4); Potassium 4.2 mmol/L (3.5-5.1); Sodium 141 mmol/L (136-145); Total Protein 6.7 g/dL (6.4-8.2)
[2021-03-07 08:24] LABS: D-Dimer 838 ng/mlFEU (<500)
[2021-03-07 08:46] LABS: Ferritin 424 ng/mL (8-252)
[2021-03-07] MEDS: Enoxaparin 40 MG/0.4 ML SYR SC (09:15)
[2021-03-07] MEDS: buPROPion-XL 150 MG TABCR PO (09:16)
[2021-03-07] MEDS: Simvastatin 20 MG TAB PO (09:16)
[2021-03-07] MEDS: Atenolol 50 MG TAB 100 MG PO (09:16)
[2021-03-07] MEDS: Ascorbic Acid 500 MG TAB 1000 MG PO ×2 (09:16→20:10)
[2021-03-07] MEDS: Aspirin E.C. 81 MG TABEC PO (09:16)
[2021-03-07] MEDS: Cholecalciferol (Vitamin D3) 1,000 UNIT TAB 2000 UNITS PO (09:16)
[2021-03-07] MEDS: Pantoprazole 40 MG TABCR PO (09:17)
[2021-03-07] MEDS: Loratidine 10 MG TAB PO (09:17)
[2021-03-07] MEDS: amLODIPine 5 MG TAB PO (09:17)
[2021-03-07] MEDS: Dexamethasone 4 MG TAB 6 MG PO (09:17)
--- NOTE | 2021-03-07 10:12 | PGE_ITS ---
General Date Of Service Date of service: 03/07/21 Time of Service: 08:00 Reason for Consult: COVID-19 Subjective 24 Hour Events: Jacki is doing very well today. During my assessment I turned off her oxygen completely and her O2 saturations stayed above 92% consistently. She does still experience shortness of breath with moving around however she has made remarkable improvement thus far. States she is using a VibraPEP and incentive spirometry and does get up to walk around a little bit but not much. Exam Const General: no acute distress Nutritional Appearance: obese HENMT Head: normocephalic Ears: external ears normal and no periauricular adenopathy General nose exam: nasal mucous membranes and turbinates normal Face and sinus: sinuses nontender Mouth: oropharynx normal and moist mucous membranes Teeth and gingiva: dentition normal Eyes General: appearance normal, both eyes and all related structures Pupils: PERRL Neck Neck: normal visual inspection and no lymphadenopathy Chest Chest: normal inspection of the chest Resp Effort & Inspection: normal respiratory effort Auscultation: diminished lung sounds, no rales, no rhonchi and no wheezes Cardio Rate: regular rate Rhythm: regular rhythm Heart Sounds: S1 normal, S2 normal and no murmurs Pulses: radial pulses present bilaterally GI Inspection: normal to inspection Palpation: soft Skin General skin exam: no rashes or lesions noted Neuro General: patient alert, patient awake and patient oriented x3 Extrem General: no clubbing, cyanosis or edema Psych Mental Status: mental status grossly normal Affect: normal affect Attitude: cooperative Objective Last Vital Signs Temp 36.0 C L 03/07/21 09:27 Pulse 61 03/07/21 09:27 Resp 18 03/07/21 09:27 BP 124/66 03/07/21 09:27 Pulse Ox 93 03/07/21 09:27 Laboratory Results - last 24 hr 03/07/21 03/07/21 03/07/21 07:00 07:00 07:00 WBC 10.61 RBC 4.72 Hgb 13.0 Hct 41.0 MCV 86.9 MCH 27.5 MCHC 31.7 L RDW 14.2 Plt Count 290 MPV 10.1 Immature Gran % 1.9 Neutrophils % 74.5 Lymphocytes % 15.0 Monocytes % 7.5 Eosinophils % 0.8 Basophils % 0.3 Nucleated RBC % 0 Absolute Neutrophils 7.91 H Absolute Lymphocytes 1.59 Absolute Monocytes 0.80 Absolute Eosinophils 0.08 Absolute Basophils 0.03 D-Dimer 838 H Sodium 141 Potassium 4.2 Chloride 106 Carbon Dioxide 29.0 Anion Gap 6.0 BUN 25 H Creatinine 1.0 Estimated GFR/1.73 m2 55.14 Glucose 149 H Calcium 8.4 L Magnesium 1.9 Ferritin 424 H Total Bilirubin 0.4 Conjugated Bilirubin 0.2 AST 58 H ALT 55 Alkaline Phosphatase 82 C-Reactive Protein 2.79 H Total Protein 6.7 Albumin 2.4 L Results Medications Medications: Active Medications Generic Name Dose Route Start Last Admin Trade Name Freq PRN Reason Stop Dose Admin Acetaminophen 650 mg 03/04/21 23:15 Acetaminophen 325 Mg Tab PO Q4H PRN PRN Albuterol Sulfate 2 puff 03/05/21 09:12 Albuterol Hfa 8 Gm 60 Puff Inh IH Q4H PRN PRN Amlodipine Besylate 5 mg 03/05/21 08:30 03/07/21 09:17 Amlodipine 5 Mg Tab PO 5 mg DAILY KERMIT Administration Ascorbic Acid 1,000 mg 03/05/21 08:30 03/07/21 09:16 Ascorbic Acid 500 Mg Tab PO 1,000 mg BID KERMIT Administration Aspirin 81 mg 03/05/21 08:30 03/07/21 09:16 Aspirin E.C. 81 Mg Tabec PO 81 mg DAILY KERMIT Administration Atenolol 100 mg 03/05/21 08:30 03/07/21 09:16 Atenolol 50 Mg Tab PO 100 mg DAILY KERMIT Administration Baricitinib 2 mg 03/05/21 08:30 03/07/21 09:16 Baricitinib 1 Mg Tab PO 2 mg DAILY KERMIT Administration Bupropion HCl 150 mg 03/06/21 08:30 03/07/21 09:16 Bupropion-Xl 150 Mg Tabcr PO 150 mg DAILY KERMIT Administration Cholecalciferol 2,000 units 03/05/21 08:30 03/07/21 09:16 Cholecalciferol (Vitamin D3) 1,000 Unit Tab PO 2,000 units DAILY KERMIT Administration Device 1 each 03/05/21 10:00 Inhaler, Assist Device MC DIRECTED KERMIT Dexamethasone 6 mg 03/05/21 08:30 03/07/21 09:17 Dexamethasone 4 Mg Tab PO 6 mg DAILY KERMIT Administration Dextrose 0 gm 03/04/21 23:19 Glucose 40% Oral Solution 15 Gm/37.5 Gm Tube PO DIRECTED PRN Dextrose/Water 0 gm 03/04/21 23:19 Dextrose 50%-Water 25 Gm/50 Ml Syr IVP DIRECTED PRN Dimethicone/Zinc Oxide 0 gm 03/04/21 23:15 Lara Protect Cream 142 Gm Tube TP PRN PRN Docusate Sodium 100 mg 03/07/21 08:30 03/07/21 09:15 Docusate Sodium 100 Mg/10 Ml Cup PO Not Given DAILY KERMIT Enoxaparin Sodium 40 mg 03/05/21 08:00 03/07/21 09:15 Enoxaparin 40 Mg/0.4 Ml Syr SC 40 mg Q24H KERMIT Administration Remdesivir 100 mg/ Sodium 100 mls @ 100 mls/hr 03/05/21 20:00 03/06/21 20:50 Chloride IVPB 03/08/21 20:59 100 mls/hr Q24H KERMIT Administration Sodium Chloride 500 mls @ 0 mls/hr 03/05/21 18:37 Saline 500ml Bag IV PRN PRN As Directed Ibuprofen 200 mg 03/04/21 23:30 Ibuprofen 200 Mg Tab PO Q6H PRN KERMIT Insulin Aspart 0 units 03/05/21 08:00 03/07/21 09:18 Insulin Aspart 300 Units/3 Ml Pen SC Not Given 0800,1200,1700,2200 [facility] Protocol Levothyroxine Sodium 25 mcg 03/05/21 06:00 03/07/21 06:45 Levothyroxine 25 Mcg Tab PO 25 mcg 0600 KERMIT Administration Loratadine 10 mg 03/05/21 08:30 03/07/21 09:17 Loratidine 10 Mg Tab PO 10 mg DAILY KERMIT Administration Melatonin 3 - 6 mg 03/04/21 23:15 Melatonin 3 Mg Tab PO HS PRN PRN Pantoprazole Sodium 40 mg 03/06/21 07:30 03/07/21 09:17 Pantoprazole 40 Mg Tabcr PO 40 mg DAILY@0730 KERMIT Administration Simvastatin 20 mg 03/05/21 08:30 03/07/21 09:16 Simvastatin 20 Mg Tab PO 20 mg DAILY KERMIT Administration Sodium Chloride 0 ml 03/05/21 18:37 03/06/21 17:40 Normal Saline Flush 10 Ml Syr IVP 20 ml PRN PRN Administration Allergies ranitidine Allergy (Mild, Verified 03/04/21 19:52) HIVES CATS Allergy (Uncoded 03/04/21 19:52) RASH/ITCHING/BREATHING DIFFICULTIES FUMES Allergy (Uncoded 03/04/21 19:52) BREATHING DIFFICULTIES PLASTIC Allergy (Uncoded 03/04/21 19:52) RASH Labs Result Diagrams: 03/07/21 07:00 03/07/21 07:00 Labs: 03/04/21 22:05 Blood Blood Culture - Preliminary NO GROWTH 48 HOURS 03/04/21 21:55 Blood Blood Culture - Preliminary NO GROWTH 48 HOURS Laboratory Tests Range/Units 03/04/21 03/04/21 03/04/21 20:50 20:50 20:50 WBC (4.4-10.8) 10^3/uL 8.35 RBC (3.93-5.22) 10^6/uL 5.13 Hgb (11.2-15.7) g/dL 14.4 Hct (36.0-46.0) % 43.4 MCV (80-95) fL 84.6 MCH (27.0-33.0) pg 28.1 MCHC (32.0-36.0) % 33.2 RDW (11.7-14.6) % 14.2 Plt Count (130-400) 10^3/uL 206 MPV (8.0-11.0) fL 9.7 Immature Gran % 0.8 Neutrophils % 73.6 Lymphocytes % 14.3 Monocytes % 9.5 Eosinophils % 1.6 Basophils % 0.2 Nucleated RBC % % 0 Absolute Neutrophils (1.2-6.7) 10^3/uL 6.15 Absolute Lymphocytes (1.2-3.4) 10^3/uL 1.19 L Absolute Monocytes (0.1-0.8) 10^3/uL 0.79 Absolute Eosinophils (0.0-0.7) 10^3/uL 0.13 Absolute Basophils (0.0-0.2) 10^3/uL 0.02 D-Dimer (<500) ng/mlFEU ABG Sample Site ABG pH (7.35-7.45) ABG pCO2 (35-45) mmHg ABG pO2 (80-105) mmHg ABG HCO3 (22-26) mmol/L ABG Total CO2 (23-27) mmol/L ABG O2 Saturation (95-98) % ABG Base Excess (-2-3) mmol/L VBG Lactate (0.6-1.4) mmol/L Oxygen Liter Flow L Sodium (136-145) mmol/L 139 Potassium (3.5-5.1) mmol/L 3.3 L Chloride (98-107) mmol/L 100 Carbon Dioxide (21.0-32.0) mmol/L 32.2 H Anion Gap (3-11) mmol/L 6.8 BUN (7-18) mg/dL 16 Creatinine (0.55-1.02) mg/dL 1.0 Estimated GFR/1.73 m2 (mL/min/1.73m2) 55.14 Glucose (74-106) mg/dL 132 H Hemoglobin A1c (<5.7) % Calcium (8.5-10.1) mg/dL 8.5 Magnesium (1.8-2.4) mg/dL 1.7 L Ferritin (8-252) ng/mL 433 H Total Bilirubin (0.2-1.0) mg/dL 1.2 H Conjugated Bilirubin (0.0-0.2) mg/dL AST (15-37) U/L 54 H ALT (14-59) U/L 40 Alkaline Phosphatase (46-116) U/L 91 Lactate Dehydrogenase (81-234) U/L 309 H Creatine Kinase (26-192) U/L Troponin I (<0.06) ng/mL C-Reactive Protein (0.0-0.3) mg/dL 9.07 H NT-Pro-B Natriuret Pep (<300) pg/mL Total Protein (6.4-8.2) g/dL 7.1 Albumin (3.4-5.0) g/dL 2.8 L Procalcitonin ng/mL COVID-19 Source SARS-CoV-2 (PCR) (Negative) Range/Units 03/04/21 03/04/21 03/04/21 20:50 20:50 20:50 WBC (4.4-10.8) 10^3/uL RBC (3.93-5.22) 10^6/uL Hgb (11.2-15.7) g/dL Hct (36.0-46.0) % MCV (80-95) fL MCH (27.0-33.0) pg MCHC (32.0-36.0) % RDW (11.7-14.6) % Plt Count (130-400) 10^3/uL MPV (8.0-11.0) fL Immature Gran % Neutrophils % Lymphocytes % Monocytes % Eosinophils % Basophils % Nucleated RBC % % Absolute Neutrophils (1.2-6.7) 10^3/uL Absolute Lymphocytes (1.2-3.4) 10^3/uL Absolute Monocytes (0.1-0.8) 10^3/uL Absolute Eosinophils (0.0-0.7) 10^3/uL Absolute Basophils (0.0-0.2) 10^3/uL D-Dimer (<500) ng/mlFEU 1337 H ABG Sample Site ABG pH (7.35-7.45) ABG pCO2 (35-45) mmHg ABG pO2 (80-105) mmHg ABG HCO3 (22-26) mmol/L ABG Total CO2 (23-27) mmol/L ABG O2 Saturation (95-98) % ABG Base Excess (-2-3) mmol/L VBG Lactate (0.6-1.4) mmol/L 1.3 Oxygen Liter Flow L Sodium (136-145) mmol/L Potassium (3.5-5.1) mmol/L Chloride (98-107) mmol/L Carbon Dioxide (21.0-32.0) mmol/L Anion Gap (3-11) mmol/L BUN (7-18) mg/dL Creatinine (0.55-1.02) mg/dL Estimated GFR/1.73 m2 (mL/min/1.73m2) Glucose (74-106) mg/dL Hemoglobin A1c (<5.7) % Calcium (8.5-10.1) mg/dL Magnesium (1.8-2.4) mg/dL Ferritin (8-252) ng/mL Total Bilirubin (0.2-1.0) mg/dL Conjugated Bilirubin (0.0-0.2) mg/dL AST (15-37) U/L ALT (14-59) U/L Alkaline Phosphatase (46-116) U/L Lactate Dehydrogenase (81-234) U/L Creatine Kinase (26-192) U/L Troponin I (<0.06) ng/mL < 0.05 C-Reactive Protein (0.0-0.3) mg/dL NT-Pro-B Natriuret Pep (<300) pg/mL Total Protein (6.4-8.2) g/dL Albumin (3.4-5.0) g/dL Procalcitonin ng/mL COVID-19 Source SARS-CoV-2 (PCR) (Negative) Range/Units 03/05/21 03/05/21 03/05/21 00:30 08:35 08:35 WBC (4.4-10.8) 10^3/uL RBC (3.93-5.22) 10^6/uL Hgb (11.2-15.7) g/dL Hct (36.0-46.0) % MCV (80-95) fL MCH (27.0-33.0) pg MCHC (32.0-36.0) % RDW (11.7-14.6) % Plt Count (130-400) 10^3/uL MPV (8.0-11.0) fL Immature Gran % Neutrophils % Lymphocytes % Monocytes % Eosinophils % Basophils % Nucleated RBC % % Absolute Neutrophils (1.2-6.7) 10^3/uL Absolute Lymphocytes (1.2-3.4) 10^3/uL Absolute Monocytes (0.1-0.8) 10^3/uL Absolute Eosinophils (0.0-0.7) 10^3/uL Absolute Basophils (0.0-0.2) 10^3/uL D-Dimer (<500) ng/mlFEU ABG Sample Site ABG pH (7.35-7.45) ABG pCO2 (35-45) mmHg ABG pO2 (80-105) mmHg ABG HCO3 (22-26) mmol/L ABG Total CO2 (23-27) mmol/L ABG O2 Saturation (95-98) % ABG Base Excess (-2-3) mmol/L VBG Lactate (0.6-1.4) mmol/L Oxygen Liter Flow L Sodium (136-145) mmol/L 139 Potassium (3.5-5.1) mmol/L 3.0 L Chloride (98-107) mmol/L 101 Carbon Dioxide (21.0-32.0) mmol/L 29.2 Anion Gap (3-11) mmol/L 8.8 BUN (7-18) mg/dL 15 Creatinine (0.55-1.02) mg/dL 0.9 Estimated GFR/1.73 m2 (mL/min/1.73m2) >= 60.00 Glucose (74-106) mg/dL 166 H Hemoglobin A1c (<5.7) % Calcium (8.5-10.1) mg/dL 8.3 L Magnesium (1.8-2.4) mg/dL 1.7 L Ferritin (8-252) ng/mL 388 H Total Bilirubin (0.2-1.0) mg/dL 1.0 Conjugated Bilirubin (0.0-0.2) mg/dL 0.4 H AST (15-37) U/L 34 ALT (14-59) U/L 33 Alkaline Phosphatase (46-116) U/L 76 Lactate Dehydrogenase (81-234) U/L Creatine Kinase (26-192) U/L 87 Troponin I (<0.06) ng/mL C-Reactive Protein (0.0-0.3) mg/dL 8.69 H NT-Pro-B Natriuret Pep (<300) pg/mL 398 H Total Protein (6.4-8.2) g/dL 7.1 Albumin (3.4-5.0) g/dL 2.5 L Procalcitonin ng/mL COVID-19 Source Nasal/Nares SARS-CoV-2 (PCR) (Negative) POSITIVE A* Range/Units 03/05/21 03/05/21 03/05/21 08:35 08:35 08:35 WBC (4.4-10.8) 10^3/uL 6.60 RBC (3.93-5.22) 10^6/uL 4.89 Hgb (11.2-15.7) g/dL 13.6 Hct (36.0-46.0) % 40.8 MCV (80-95) fL 83.4 MCH (27.0-33.0) pg 27.8 MCHC (32.0-36.0) % 33.3 RDW (11.7-14.6) % 14.2 Plt Count (130-400) 10^3/uL 204 MPV (8.0-11.0) fL 9.5 Immature Gran % 0.9 Neutrophils % 74.4 Lymphocytes % 17.0 Monocytes % 7.4 Eosinophils % 0.0 Basophils % 0.3 Nucleated RBC % % 0 Absolute Neutrophils (1.2-6.7) 10^3/uL 4.91 Absolute Lymphocytes (1.2-3.4) 10^3/uL 1.12 L Absolute Monocytes (0.1-0.8) 10^3/uL 0.49 Absolute Eosinophils (0.0-0.7) 10^3/uL 0.00 Absolute Basophils (0.0-0.2) 10^3/uL 0.02 D-Dimer (<500) ng/mlFEU 1437 H ABG Sample Site ABG pH (7.35-7.45) ABG pCO2 (35-45) mmHg ABG pO2 (80-105) mmHg ABG HCO3 (22-26) mmol/L ABG Total CO2 (23-27) mmol/L ABG O2 Saturation (95-98) % ABG Base Excess (-2-3) mmol/L VBG Lactate (0.6-1.4) mmol/L 1.5 H Oxygen Liter Flow L Sodium (136-145) mmol/L Potassium (3.5-5.1) mmol/L Chloride (98-107) mmol/L Carbon Dioxide (21.0-32.0) mmol/L Anion Gap (3-11) mmol/L BUN (7-18) mg/dL Creatinine (0.55-1.02) mg/dL Estimated GFR/1.73 m2 (mL/min/1.73m2) Glucose (74-106) mg/dL Hemoglobin A1c (<5.7) % Calcium (8.5-10.1) mg/dL Magnesium (1.8-2.4) mg/dL Ferritin (8-252) ng/mL Total Bilirubin (0.2-1.0) mg/dL Conjugated Bilirubin (0.0-0.2) mg/dL AST (15-37) U/L ALT (14-59) U/L Alkaline Phosphatase (46-116) U/L Lactate Dehydrogenase (81-234) U/L Creatine Kinase (26-192) U/L Troponin I (<0.06) ng/mL C-Reactive Protein (0.0-0.3) mg/dL NT-Pro-B Natriuret Pep (<300) pg/mL Total Protein (6.4-8.2) g/dL Albumin (3.4-5.0) g/dL Procalcitonin ng/mL < 0.1 COVID-19 Source SARS-CoV-2 (PCR) (Negative) Range/Units 03/05/21 03/06/21 03/06/21 10:27 07:04 07:04 WBC (4.4-10.8) 10^3/uL RBC (3.93-5.22) 10^6/uL Hgb (11.2-15.7) g/dL Hct (36.0-46.0) % MCV (80-95) fL MCH (27.0-33.0) pg MCHC (32.0-36.0) % RDW (11.7-14.6) % Plt Count (130-400) 10^3/uL MPV (8.0-11.0) fL Immature Gran % Neutrophils % Lymphocytes % Monocytes % Eosinophils % Basophils % Nucleated RBC % % Absolute Neutrophils (1.2-6.7) 10^3/uL Absolute Lymphocytes (1.2-3.4) 10^3/uL Absolute Monocytes (0.1-0.8) 10^3/uL Absolute Eosinophils (0.0-0.7) 10^3/uL Absolute Basophils (0.0-0.2) 10^3/uL D-Dimer (<500) ng/mlFEU ABG Sample Site Left Radial ABG pH (7.35-7.45) 7.52 H ABG pCO2 (35-45) mmHg 35 ABG pO2 (80-105) mmHg 64 L ABG HCO3 (22-26) mmol/L 29 H ABG Total CO2 (23-27) mmol/L 25 ABG O2 Saturation (95-98) % 94 L ABG Base Excess (-2-3) mmol/L 6 H VBG Lactate (0.6-1.4) mmol/L 1.8 H Oxygen Liter Flow L 4 Sodium (136-145) mmol/L 143 Potassium (3.5-5.1) mmol/L 3.7 D Chloride (98-107) mmol/L 105 Carbon Dioxide (21.0-32.0) mmol/L 33.8 H Anion Gap (3-11) mmol/L 4.2 BUN (7-18) mg/dL 23 H Creatinine (0.55-1.02) mg/dL 1.1 H Estimated GFR/1.73 m2 (mL/min/1.73m2) 49.39 Glucose (74-106) mg/dL 142 H Hemoglobin A1c (<5.7) % Calcium (8.5-10.1) mg/dL 8.6 Magnesium (1.8-2.4) mg/dL 2.1 Ferritin (8-252) ng/mL 425 H Total Bilirubin (0.2-1.0) mg/dL 0.5 Conjugated Bilirubin (0.0-0.2) mg/dL 0.3 H AST (15-37) U/L 42 H ALT (14-59) U/L 36 Alkaline Phosphatase (46-116) U/L 86 Lactate Dehydrogenase (81-234) U/L Creatine Kinase (26-192) U/L Troponin I (<0.06) ng/mL C-Reactive Protein (0.0-0.3) mg/dL 5.76 H NT-Pro-B Natriuret Pep (<300) pg/mL Total Protein (6.4-8.2) g/dL 7.3 Albumin (3.4-5.0) g/dL 2.6 L Procalcitonin ng/mL COVID-19 Source SARS-CoV-2 (PCR) (Negative) Range/Units 03/06/21 03/06/21 03/07/21 07:04 07:04 07:00 WBC (4.4-10.8) 10^3/uL 12.30 H D RBC (3.93-5.22) 10^6/uL 5.11 Hgb (11.2-15.7) g/dL 14.3 Hct (36.0-46.0) % 44.1 MCV (80-95) fL 86.3 MCH (27.0-33.0) pg 28.0 MCHC (32.0-36.0) % 32.4 RDW (11.7-14.6) % 14.2 Plt Count (130-400) 10^3/uL 292 MPV (8.0-11.0) fL 10.1 Immature Gran % 0.7 Neutrophils % 70.3 Lymphocytes % 20.2 Monocytes % 7.7 Eosinophils % 0.9 Basophils % 0.2 Nucleated RBC % % 0 Absolute Neutrophils (1.2-6.7) 10^3/uL 8.65 H Absolute Lymphocytes (1.2-3.4) 10^3/uL 2.48 Absolute Monocytes (0.1-0.8) 10^3/uL 0.95 H Absolute Eosinophils (0.0-0.7) 10^3/uL 0.11 Absolute Basophils (0.0-0.2) 10^3/uL 0.02 D-Dimer (<500) ng/mlFEU ABG Sample Site ABG pH (7.35-7.45) ABG pCO2 (35-45) mmHg ABG pO2 (80-105) mmHg ABG HCO3 (22-26) mmol/L ABG Total CO2 (23-27) mmol/L ABG O2 Saturation (95-98) % ABG Base Excess (-2-3) mmol/L VBG Lactate (0.6-1.4) mmol/L Oxygen Liter Flow L Sodium (136-145) mmol/L 141 Potassium (3.5-5.1) mmol/L 4.2 Chloride (98-107) mmol/L 106 Carbon Dioxide (21.0-32.0) mmol/L 29.0 Anion Gap (3-11) mmol/L 6.0 BUN (7-18) mg/dL 25 H Creatinine (0.55-1.02) mg/dL 1.0 Estimated GFR/1.73 m2 (mL/min/1.73m2) 55.14 Glucose (74-106) mg/dL 149 H Hemoglobin A1c (<5.7) % 7.0 H Calcium (8.5-10.1) mg/dL 8.4 L Magnesium (1.8-2.4) mg/dL 1.9 Ferritin (8-252) ng/mL 424 H Total Bilirubin (0.2-1.0) mg/dL 0.4 Conjugated Bilirubin (0.0-0.2) mg/dL 0.2 AST (15-37) U/L 58 H ALT (14-59) U/L 55 Alkaline Phosphatase (46-116) U/L 82 Lactate Dehydrogenase (81-234) U/L Creatine Kinase (26-192) U/L Troponin I (<0.06) ng/mL C-Reactive Protein (0.0-0.3) mg/dL 2.79 H NT-Pro-B Natriuret Pep (<300) pg/mL Total Protein (6.4-8.2) g/dL 6.7 Albumin (3.4-5.0) g/dL 2.4 L Procalcitonin ng/mL COVID-19 Source SARS-CoV-2 (PCR) (Negative) Range/Units 03/07/21 03/07/21 07:00 07:00 WBC (4.4-10.8) 10^3/uL 10.61 RBC (3.93-5.22) 10^6/uL 4.72 Hgb (11.2-15.7) g/dL 13.0 Hct (36.0-46.0) % 41.0 MCV (80-95) fL 86.9 MCH (27.0-33.0) pg 27.5 MCHC (32.0-36.0) % 31.7 L RDW (11.7-14.6) % 14.2 Plt Count (130-400) 10^3/uL 290 MPV (8.0-11.0) fL 10.1 Immature Gran % 1.9 Neutrophils % 74.5 Lymphocytes % 15.0 Monocytes % 7.5 Eosinophils % 0.8 Basophils % 0.3 Nucleated RBC % % 0 Absolute Neutrophils (1.2-6.7) 10^3/uL 7.91 H Absolute Lymphocytes (1.2-3.4) 10^3/uL 1.59 Absolute Monocytes (0.1-0.8) 10^3/uL 0.80 Absolute Eosinophils (0.0-0.7) 10^3/uL 0.08 Absolute Basophils (0.0-0.2) 10^3/uL 0.03 D-Dimer (<500) ng/mlFEU 838 H ABG Sample Site ABG pH (7.35-7.45) ABG pCO2 (35-45) mmHg ABG pO2 (80-105) mmHg ABG HCO3 (22-26) mmol/L ABG Total CO2 (23-27) mmol/L ABG O2 Saturation (95-98) % ABG Base Excess (-2-3) mmol/L VBG Lactate (0.6-1.4) mmol/L Oxygen Liter Flow L Sodium (136-145) mmol/L Potassium (3.5-5.1) mmol/L Chloride (98-107) mmol/L Carbon Dioxide (21.0-32.0) mmol/L Anion Gap (3-11) mmol/L BUN (7-18) mg/dL Creatinine (0.55-1.02) mg/dL Estimated GFR/1.73 m2 (mL/min/1.73m2) Glucose (74-106) mg/dL Hemoglobin A1c (<5.7) % Calcium (8.5-10.1) mg/dL Magnesium (1.8-2.4) mg/dL Ferritin (8-252) ng/mL Total Bilirubin (0.2-1.0) mg/dL Conjugated Bilirubin (0.0-0.2) mg/dL AST (15-37) U/L ALT (14-59) U/L Alkaline Phosphatase (46-116) U/L Lactate Dehydrogenase (81-234) U/L Creatine Kinase (26-192) U/L Troponin I (<0.06) ng/mL C-Reactive Protein (0.0-0.3) mg/dL NT-Pro-B Natriuret Pep (<300) pg/mL Total Protein (6.4-8.2) g/dL Albumin (3.4-5.0) g/dL Procalcitonin ng/mL COVID-19 Source SARS-CoV-2 (PCR) (Negative) Assessment and Plan Assessment and plan (1) COVID: Status: Acute (2) Obstructive sleep apnea syndrome: Status: Chronic Assessment and plan: This is a vaccinated 66-year-old female who was admitted for Covid pneumonia. She does have slight elevations in her inflammatory markers and is almost 2 weeks out from initial symptoms. She has been maintained on remdesivir, Decadron and baricitinib. She appears to be doing quite well and is ambulatory. She had a negative CT PE. Given that she is almost 2 weeks out of her initial symptoms it is unlikely that her viral replication rate is elevated particularly in this immunocompetent patient so I am unsure of the efficacy of giving remdesivir however I do think Decadron and baricitinib are helping. There is no indication that there is a bacterial wheeler perinfection clinically and her procalcitonin was negative. COVID-19 Pneumonia - agree with Decadron and barcitinib - inflammatory markers improving - remdesivir is unlikely to be beneficial at this point in her time course - I do not beleive she has a bacterial pneumonia - agree with IS and VibraPEP - patient states she is unable to prone - ambulation as tolerated - if she is not using the CPAP at night, it can be removed from her room - negative fluid balance in 24 hours time - Lovenox for DVT ppx
[2021-03-07] MEDS: Insulin Aspart 300 UNITS/3 ML PEN SC ×3 (12:35→22:56)
--- NOTE | 2021-03-07 18:46 | PDOC.CMPRO ---
- If Service Date Differs Date of service: 03/07/21 Time of Service: 18:47 Care Management Progress Note S/O: CM talked to Jacki over the phone today as she remains on Covid precautions. Jacki stated she is feeling much better, but feels that she will benefit from one more day. Per RT, she is now on room air at rest, and when she walks she only drops to about 89%. Jacki reported that she has a pulse oximeter at home, and will use it to monitor her oxygen levels. She stated that her daughter or other family member will drive her home when ready. CM will continue to follow. A: Jacki is a 66 year old female admitted to [facility] on 03/04/21 with Covid. P: Jacki is being monitored closely, and is still requiring O2. Anticipate she will return home once she is medically cleared by . Her family will drive her home via private vehicle. She will follow up with her PCP and discharge plan of care. CM will continue to follow.
--- NOTE | 2021-03-07 19:05 | W.PM.PROGNOT ---
Date of Service Date of service: 03/07/21 Time of Service: 19:05 Assessment and Plan Assessment and plan (1) Pneumonia due to 2019 novel coronavirus: Status: Acute Assessment and plan: Continue remdesivir/dexamethasone/baricitinib. On RA at rest, desats slightly with ambulation. Anticipate discharge home tomorrow (2) Bacterial pneumonia: Status: Ruled-out Assessment and plan: Abx d/c'ed (3) Hypokalemia: Status: Resolved Assessment and plan: (4) Hypomagnesemia: Status: Resolved (5) Type 2 diabetes mellitus with complication: Status: Acute Assessment and plan: Cover with SSI (6) Obstructive sleep apnea syndrome: Status: Chronic Assessment and plan: refuses CPAP. (7) DVT prophylaxis: Status: Acute Assessment and plan: SC lovenox (8) Discharge planning issues: Status: Acute Assessment and plan: Full code Anticipate discharge home tomorrow. Subjective Subjective Interval history since last seen: Better! Still ALMAZAN, near normal for her. Coughing - nonproductive. No nausea/diarrhea. Had a BM - formed. No chest pain. On RA. Desats to 88-89% when walking. Exam Narrative Exam Narrative: Today's visit is over the phone due to patient's improvement and her COVID-19 condition. Ms Jimenez is speaking fluently in complete sentences with appropriate content. She is upbeat. A&Ox3. No coughing, dyspnea/tachypnea. Objective Last Vital Signs Temp 36.0 C L 03/07/21 09:27 Pulse 65 03/07/21 13:30 Resp 18 03/07/21 09:27 BP 124/66 03/07/21 09:27 Pulse Ox 93 03/07/21 11:16 Laboratory Results - last 24 hr 03/07/21 03/07/21 03/07/21 07:00 07:00 07:00 WBC 10.61 RBC 4.72 Hgb 13.0 Hct 41.0 MCV 86.9 MCH 27.5 MCHC 31.7 L RDW 14.2 Plt Count 290 MPV 10.1 Immature Gran % 1.9 Neutrophils % 74.5 Lymphocytes % 15.0 Monocytes % 7.5 Eosinophils % 0.8 Basophils % 0.3 Nucleated RBC % 0 Absolute Neutrophils 7.91 H Absolute Lymphocytes 1.59 Absolute Monocytes 0.80 Absolute Eosinophils 0.08 Absolute Basophils 0.03 D-Dimer 838 H Sodium 141 Potassium 4.2 Chloride 106 Carbon Dioxide 29.0 Anion Gap 6.0 BUN 25 H Creatinine 1.0 Estimated GFR/1.73 m2 55.14 Glucose 149 H Calcium 8.4 L Magnesium 1.9 Ferritin 424 H Total Bilirubin 0.4 Conjugated Bilirubin 0.2 AST 58 H ALT 55 Alkaline Phosphatase 82 C-Reactive Protein 2.79 H Total Protein 6.7 Albumin 2.4 L
[2021-03-07] MEDS: Normal Saline Flush 10 ML SYR IVP ×2 (20:09→22:57)
[2021-03-08 01:25] LABS: Vitamin D 25 Total 36.5 ng/mL (30-100)
[2021-03-08 04:47] VITALS: BP 114/71; PULSE 65; RESP 16; TEMP 36.6; O2SAT 93
[2021-03-08] MEDS: Levothyroxine 25 MCG TAB PO (06:15)
[2021-03-08 08:30] VITALS: O2SAT 93
[2021-03-08] MEDS: Enoxaparin 40 MG/0.4 ML SYR SC (08:38)
[2021-03-08] MEDS: amLODIPine 5 MG TAB PO (08:38)
[2021-03-08] MEDS: Simvastatin 20 MG TAB PO (08:39)
[2021-03-08] MEDS: buPROPion-XL 150 MG TABCR PO (08:39)
[2021-03-08] MEDS: Ascorbic Acid 500 MG TAB 1000 MG PO (08:39)
[2021-03-08] MEDS: Pantoprazole 40 MG TABCR PO (08:39)
[2021-03-08] MEDS: Dexamethasone 4 MG TAB 6 MG PO (08:39)
[2021-03-08] MEDS: Atenolol 50 MG TAB 100 MG PO (08:39)
[2021-03-08] MEDS: Loratidine 10 MG TAB PO (08:39)
[2021-03-08] MEDS: Aspirin E.C. 81 MG TABEC PO (08:39)
[2021-03-08] MEDS: Cholecalciferol (Vitamin D3) 1,000 UNIT TAB 2000 UNITS PO (12:06)
[2021-03-08] MEDS: Insulin Aspart 300 UNITS/3 ML PEN SC (12:11)
--- NOTE | 2021-03-08 15:28 | W.PM.DS.N ---
Date of service: 03/08/21 Time of Service: 15:28 DS: Diagnosis Discharge Diagnosis (1) Pneumonia due to 2019 novel coronavirus: Status: Acute (2) Bacterial pneumonia: Status: Ruled-out (3) Hypokalemia: Status: Resolved (4) Hypomagnesemia: Status: Resolved (5) Type 2 diabetes mellitus with complication: Status: Chronic (6) Obstructive sleep apnea syndrome: Status: Chronic Discharge Plan Disposition Patient Disposition: HOME Condition: Serious Discharge Details Reason For Visit: COVID Admit Date/Time: 03/04/21 23:16 Admit Provider: Julio C Pedersen Attending Provider: Juli oC Pedersen Primary Care Provider: Cherelle Boyce Hospital Course Hospital Course: Ms Jimenez is a 66 year old female with PMHx of T2DM, HTN, hyperlipidemia, MELONY not on CPAP, who was admitted to [facility] hospitalist service on 03/04/21 with COVID-19 pneumonia and hypoxia, saturating 80% on RA and requiring 4L of O2 to saturate above 90%. She was treated with remdesivir, dexamethasone and baricitinib with steady significant improvement in her symptoms. We ruled out a superimposed process such as bacterial pneumonia as well as PE. The patient was seen in consultation by Dr Aragon, who felt that the pneumonia seen on CT was due to COVID-19 rather than a baterial process. She has been on room air since 03/07/21 at rest desaturating to 89% while walking. Today, she is ready for discharge. Care for patient as well as completion of her discharge summary on day of discharge took 30 minutes. Home Meds and New Rx's Prescriptions: New ascorbic acid (vitamin C) [Vitamin C] 500 mg Tablet 500 mg PO BID Qty: 20 RF: 0 benzonatate [Tessalon Perles] 100 mg capsule 100 mg PO TID PRN (Reason: cough) Qty: 30 RF: 0 Continued amlodipine 5 mg tablet 5 mg PO DAILY RF: 0 Mirena 20 mcg/24 hr (5 years) intrauterine device 1 device Intrauterine ONCE Qty: 1 RF: 0 exenatide microspheres 2 mg suspension,extended rel recon SC RF: 0 ADVIL 200 MG capsule 200 mg PO Q6H PRN RF: 0 metformin 500 MG tablet 1,000 mg PO BID RF: 0 atenolol 100 MG tablet 100 mg PO DAILY RF: 0 aspirin [Aspir-81] 81 MG tablet,delayed release (DR/EC) 81 mg PO DAILY RF: 0 simvastatin 20 MG tablet 20 mg PO DAILY RF: 0 levothyroxine [Synthroid] 25 MCG tablet 25 mcg PO DAILY RF: 0 albuterol sulfate [ProAir HFA] 8.5 GM HFA aerosol inhaler 2 puff Inhalation Q6H PRN Qty: 2 RF: 0 cholecalciferol (vitamin D3) [Vitamin D3] 2,000 UNIT capsule 2,000 unit PO DAILY RF: 0 venlafaxine 37.5 MG tablet 37.5 mg PO BID RF: 0 loratadine 10 MG tablet 10 mg PO DAILY RF: 0 bupropion HCl 150 mg tablet extended release 24 hr 150 mg PO DAILY RF: 0 hydrochlorothiazide 12.5 mg tablet 12.5 mg RF: 0 Discharge Instructions Instructions: Droplet Precautions (ED), COVID-19 (Coronavirus Disease 2019) (DC), Face Coverings (Masks) and COVID-19 (DC) Additional Instructions: You must continue to self-quarantine for two more days. Return to the hospital with any fever, bleeding, chest pain, worsening shortness of breath, or pulse oxymetry below 90%. Referrals: Cherelle Boyce [Primary Care Provider] - Activity:: Activity as Tolerated Equipment/Supplies:: No Equipment Needed Diet:: As Tolerated Discharge Orders Discharge Orders: Discharge Order (Routine); Ordered 03/08/21 Ordered By: Keysha Bashir DS: Summary Time Spent with Patient providing and/or coordinating discharge services: Less than 30 minutes Status at Discharge Functional status at discharge: independent ambulation Overall status at discharge: patient is progressing back to baseline Mental Status: mental status grossly normal Speech and Movement: speech and movement normal Mood: congruent mood Affect: normal affect Exam Narrative Exam Narrative: Today's visit is over the phone due to patient's improvement and her COVID-19 condition. Fluent speech without dyspnea/tachypnea.A&Ox3. Psych Mental Status: mental status grossly normal Speech and Movement: speech and movement normal Mood: congruent mood Affect: normal affect DS: Data Vitals/I&O Vitals and I&O: Vital Signs Temperature 36.6 C 03/08/21 04:47 Temperature Source Tympanic 03/08/21 04:47 Pulse 65 03/08/21 04:47 Pulse Rhythm Regular 03/08/21 09:00 Respiratory Rate 16 03/08/21 04:47 Respiratory Effort Non-Labored 03/08/21 09:00 Respiratory Depth Normal 03/08/21 09:00 Respiratory Pattern Normal 03/08/21 09:00 Blood Pressure 114/71 03/08/21 04:47 Blood Pressure Mean 110 03/04/21 23:11 Blood Pressure Position Sitting 03/04/21 23:11 Pulse Oximetry 93 03/08/21 08:30 Oxygen Delivery Method Room Air 03/08/21 08:30 Oxygen Flow Rate 0 03/08/21 08:30 Fraction of Inspired Oxygen (FIO2) 35 03/06/21 09:09 Pain Level 0 03/08/21 04:47 Intake & Output 03/07/21 03/08/21 03/08/21 23:59 11:59 23:59 Intake Total 1240 / 1440 250 / 550 300 / 550 Output Total 600 / 800 300 / 300 Balance 640 / 640 -50 / 250 300 / 250 Intake: IV 125 / 125 Oral 1115 / 1315 250 / 550 300 / 550 Output: Urine 600 / 800 300 / 300 Other: Urine Color Yellow Pale Yellow Urine Appearance Clear Clear Urine Odor Normal Normal Comment Pt reports she voided in toilet. Patient is independently using the bathroom as needed. reports no gu issues. Voiding Methods Toilet Toilet Data Completed and Pending Completed studies during hospitalization [Text1]: CXR: Bilateral infiltrates, right greater than left. CTA chest: Bilateral pneumonia. No evidence of pulmonary embolism. Labs on day of discharge: Labs from last 24 hours 03/06/21 07:04 25-OH Vitamin D Total 36.5 Preliminary micro results at discharge 03/04/21 22:05 Blood Culture - Preliminary Blood NO GROWTH 72 HOURS 03/04/21 21:55 Blood Culture - Preliminary Blood NO GROWTH 72 HOURS [facility] Medical History (Updated 03/08/21 @ 15:28 by Keysha Bashir MD) Adenocarcinoma of endometrium Grade 1 diagnosed 2012. No surgery secondary to patient's comorbidities. Mirena IUD inserted 2012 patient has in which her biopsies every 6 months. Adenocarcinoma remains present grade 1 Benign hypertension Chronic osteoarthritis Coronary arteriosclerosis Diabetes mellitus, type 2 Gastroesophageal reflux disease Hyperlipidemia Hypothyroidism Morbid obesity 05/2018 BMI 52 Obstructive sleep apnea syndrome MELONY (obstructive sleep apnea) (10/31/17) Surgical History Hemicolectomy (~2003) diverticulitis, BSO performed concomittantly. anastomotic leak,reoperation, colostomy, MSA infection, wound dehiscence and closure by 2d intention. Open Carpal Tunnel release bilateral Replacement of total knee joint left Family History Mother Hypertensive disorder, systemic arterial Father Acute poliomyelitis Brother Hypertensive disorder, systemic arterial Diabetes Brother Diabetes Personal history of malignant neoplasm Social History Smoking/Tobacco Use Status: Never Smoking risk assessment performed?: Yes Alcohol Intake: never Drug use: Never Substance use type: does not use Number of Children: 1 current occupation: Not working secondary to disabilities Seatbelt use: always Do you feel safe at home: Yes Do you feel safe in your relationship?: Yes History History 1 Para Hx # Term Pregnancies Multiple births Hx # Pregnancies Ectopic pregnancies AB induced Hx Number of Living Children 1 AB spontaneous
--- NOTE | 2021-03-08 16:48 | PDOC.CMDIS ---
- If Service Date Differs Date of service: 03/08/21 Time of Service: 16:48 LACE Index Scoring Tool - Questions: Length of Stay (in days): 4 - 6 Acuity (Admit via E.D.?): Yes Comorbidities: Diabetes w/o Complication E.D. Visits: 1 - Answers: Total Score: 9 Risk of Readmission: Low Risk Care Management Discharge Reason for Hospitalization: COVID Discharge Plan: Jacki will return home today with no new services. Her daughter will drive her home via private vehicle when ready. She will follow up with her PCP and discharge plan of care. CM spoke to her over the phone, and she reported that she is excited to be returning home, and feels ready today. Patient/Family Education Needs: Review discharge instructions regarding activity levels and medications, discussion of self care needs including ask me three.
== END 2021-03-08 17:50 | disposition home or self-care (01) | DRG 177 ==
LOC: ER 03-05 00:36 → MS 03-05 00:38
PROVIDERS: Internal Medicine; Student in an Organized Health Care Education/Training Program; Admitting Provider General Practice; Emergency Provider Nurse Practitioner Acute Care; PCP Nurse Practitioner; Visit Provider General Practice
DX: U07.1 COVID-19 (principal); J12.82 Pneumonia due to coronavirus disease 2019; J15.9 Unspecified bacterial pneumonia; Z68.42 Body mass index [BMI] 45.0-49.9, adult; E87.3 Alkalosis; C54.1 Malignant neoplasm of endometrium; I10 Essential (primary) hypertension; E11.9 Type 2 diabetes mellitus without complications; I25.10 Atherosclerotic heart disease of native coronary artery without angina pectoris; E78.5 Hyperlipidemia, unspecified; E03.9 Hypothyroidism, unspecified; E66.01 Morbid (severe) obesity due to excess calories; G47.33 Obstructive sleep apnea (adult) (pediatric); Z98.0 Intestinal bypass and anastomosis status; E87.6 Hypokalemia; E83.42 Hypomagnesemia
CPT/HCPCS: 36415; 71275; 80048; 80053; 80076; 82306; 82550; 82805; 84145; 87040; 87635; 93005; 96365; 99285; J1650; 36600; 71045; 82728; 83036; 83605; 83615; 83735; 83880; 84484; 85025; 85379; 86140; 93010; 94660; 94667; 99222; 99231; 99232; 99233; 99238; J3490; J8540

== ENCOUNTER 2021-08-01 14:29 | Outpatient (REF) | payer MEDICARE, MEDICAID, SELFPAY ==
--- NOTE | 2021-08-01 13:45 | ENDOMET_PTH ---
PATIENT: Jacki Jimenez LOC: [facility] U#:[id number] AGE/SX: 66/F ROOM: RE08/01/[address]: Kourtney Aguilar : 1955 BED: DIS: 08/01/2021 SPEC #: [id number] RECD: 08/01/21 15:38 STATUS: RU REMickie #: [id number] CHONG: 08/01/21 13:[address]: Kourtney Aguilar DEPT: Surgical Specimen RECD BY: Selina Mendoza ENTERED: 08/01/21 15:39 SP TYPE: Endomet OTHR DR: Cherelle Boyce Tissues: 1 - ENDOMETRIUM BX/PARULETTE Procedures: GROSS AND MICRO LEVEL 4 IMMUNOPEROXIDASE STAIN Comments: [id number]
[2021-08-10 12:50] LABS: HSV 1 PCR Negative (Negative); HSV 2 PCR Negative (Negative); Specimen Source Urethra
== END 2021-08-01 14:30 | disposition home or self-care (01) ==
LOC: LBN 14:29
PROVIDERS: PCP Nurse Practitioner; Visit Provider Obstetrics & Gynecology Gynecology
DX: N94.89 Other specified conditions associated with female genital organs and menstrual cycle (principal)
CPT/HCPCS: 87529; 88305; 88361

== ENCOUNTER 2021-11-12 17:08 | Outpatient (REF) | payer MEDICARE, MEDICAID, SELFPAY ==
[2021-11-12 19:45] LABS: COMMENT (LAB VIEW ONLY) 193.42 mg/dL
[2021-11-12 20:11] LABS: Microalb ug/mg Crea 292.8 ug/mg Cr
== END 2021-11-12 17:09 | disposition home or self-care (01) ==
LOC: NCHCN 17:08
PROVIDERS: PCP Nurse Practitioner; Visit Provider Nurse Practitioner Family
DX: E11.9 Type 2 diabetes mellitus without complications (principal)
CPT/HCPCS: 82043; 82570

== ENCOUNTER → 2021-11-28 01:01 | Outpatient (CLI) | payer MEDICARE, MEDICAID, SELFPAY ==
--- NOTE | 2021-11-28 13:00 | DI.MAMMO_ITS ---
Exam(s) MAMMO SCREENING EXAM: MAMMO SCREENING CLINICAL HISTORY: SCREENING, Z12.39 TECHNIQUE: Mammograms were interpreted according to the usual protocol including computer analysis w bLife system, tomosynthesis and C-view imaging. COMPARISON: FINDINGS: The breasts are of moderate density with fairly symmetrical distribution is of fibroglandular tissue. No dominant mass or clumped microcalcification is identified in either breast. The current examina tion is compared with previous examinations including August 2019 and there has been no gross interval change in appearance in comparison with the prior studies. IMPRESSION: No specific evidence of malignancy at this time. Routine screening examinations are suggested at yea rly intervals in this age group according to the ACS ACR guidelines. BI-RADS Category 1 - Negative Breast Density - Category B - Scattered areas of fibroglandular density
== END ==
PROVIDERS: PCP Nurse Practitioner; Visit Provider Nurse Practitioner Family
DX: Z12.31 Encounter for screening mammogram for malignant neoplasm of breast (principal)
CPT/HCPCS: 77063; 77067

== ENCOUNTER 2022-01-23 13:50 | Outpatient (REF) | payer MEDICARE, MEDICAID, SELFPAY ==
[2022-01-23 16:09] LABS: Abs Immature Grans 0.03 10^3/uL (0.0-0.06); Absolute Basophil Count 0.03 10^3/uL (0.0-0.2); Absolute Eosinophil Count 0.47 10^3/uL (0.0-0.7); Absolute Lymphocyte Count 2.39 10^3/uL (1.2-3.4); Absolute Monocyte Count 0.71 10^3/uL (0.1-0.8); Absolute Neutrophil Count 5.94 10^3/uL (1.2-6.7); Basophils % 0.3; Eosinophils % 4.9; HCT 47.8 % (36.0-46.0); HGB 15.9 g/dL (11.2-15.7); Immature Grans % 0.3; MCH 28.4 pg (27.0-33.0); MCHC 33.3 % (32.0-36.0); MCV 86 fL (80-95); MPV 10.9 fL (8.0-11.0); Monocytes % 7.4; Neutrophils % 62.1; Platelet Count 218 10^3/uL (130-400); RBC 5.59 10^6/uL (3.93-5.22); RDW 14.6 % (11.7-14.6); WBC 9.57 10^3/uL (4.4-10.8)
[2022-01-23 16:52] LABS: ALT 32 U/L (14-59); AST 25 U/L (15-37); Albumin 3.7 g/dL (3.4-5.0); Alkaline Phosphatase 81 U/L (46-116); Anion Gap 9.1 mmol/L (3-11); BUN 28 mg/dL (7-18); Bilirubin, Total 0.5 mg/dL (0.2-1.0); CO2 29.9 mmol/L (21.0-32.0); CREATININE 1.1 mg/dL (0.55-1.02); Calcium 9.6 mg/dL (8.5-10.1); Chloride 103 mmol/L (98-107); Estimated GFR 49.39 (mL/min/1.73m2); Glucose 84 mg/dL (74-106); Potassium 4.1 mmol/L (3.5-5.1); Sodium 142 mmol/L (136-145); TSH (W/Ref FT4) 2.68 uIU/mL (0.36-3.74); Total Protein 7.4 g/dL (6.4-8.2)
== END 2022-01-23 13:51 | disposition home or self-care (01) ==
LOC: NCHCN 13:50
PROVIDERS: PCP Nurse Practitioner; Visit Provider Nurse Practitioner Family
DX: E11.9 Type 2 diabetes mellitus without complications (principal)
CPT/HCPCS: 80053; 84443; 85025

== ENCOUNTER → 2022-02-07 01:58 | Outpatient (CLI) | payer MEDICARE, MEDICAID, SELFPAY ==
--- NOTE | 2022-02-07 | DI.RAD_ITS ---
Exam(s) XR KNEE RT 3V AP,LAT,GINGER EXAM: XR KNEE RT 3V AP,LAT,GINGER CLINICAL HISTORY: OA,M19.90, RT KNEE PAIN, M25.561. TECHNIQUE: 2D digital imaging was performed of the right knee. Three views obtained. AP, lateral an d PA tunnel views were obtained. COMPARISON: CR XR knee RT 2V AP,lat from 05/06/2018 FINDINGS: BONES: No acute fracture is present. No bony destructive lesion is seen. JOINTS: There is marked narrowing of the medial femoral tibial joint. Periarticular spurring involvi ng all 3 joint compartments is present. No joint effusion is seen. SOFT TISSUE: Normal. IMPRESSION: Marked degenerative changes of the right knee. DATA REPOSITORY: RADIATION DOSE DELIVERED:
--- NOTE | 2022-02-07 | DI.RAD_ITS ---
Exam(s) XR SHOULDER RT COMPLETE 2+V EXAM: XR SHOULDER RT COMPLETE 2+V CLINICAL HISTORY: OA,M19.90,RT SHOULDER PAIN,M25.512. TECHNIQUE: 2D digital imaging was performed of the right shoulder. Five images were obtained. AP, Grashey, Y-view and axillary views were obtained. COMPARISON: CR RIGHT SCAPULA from 11/09/2012 FINDINGS: BONES: No acute fracture is present. No bony destructive lesion is seen. JOINTS: No dislocation present. Mild degenerative changes are seen at both the acromioclavicular and glenohumeral joints. SOFT TISSUE: Soft tissue calcifications are seen adjacent to the greater tuberosity consistent with c alcific tendinitis. IMPRESSION: Degenerative changes of the right shoulder. DATA REPOSITORY: RADIATION DOSE DELIVERED:
== END ==
PROVIDERS: PCP Nurse Practitioner; Visit Provider Nurse Practitioner Family
DX: M19.011 Primary osteoarthritis, right shoulder (principal); M17.11 Unilateral primary osteoarthritis, right knee
CPT/HCPCS: 73562; 73030

== ENCOUNTER 2022-02-15 16:45 | Outpatient (REF) | payer MEDICARE, MEDICAID, SELFPAY ==
--- NOTE | 2022-02-15 15:30 | ENDOMET_PTH ---
PATIENT: Jacki Jimenez LOC: [facility] U#:[id number] AGE/SX: 67/F ROOM: RE02/15/[address]: Kourtney Aguilar : 1955 BED: DIS: 02/15/2022 SPEC #: [id number] RECD: 02/15/22 17:28 STATUS: RU REMickie #: [id number] CHONG: 02/15/22 15:[address]: Kourtney Aguilar DEPT: Surgical Specimen RECD BY: Selina Mendoza ENTERED: 02/15/22 17:28 SP TYPE: Endomet OTHR DR: Cherelle Boyce Tissues: 1 - ENDOMETRIUM BX/PARULETTE Procedures: GROSS AND MICRO LEVEL 4 Comments: [id number]
== END 2022-02-15 16:46 | disposition home or self-care (01) ==
LOC: LBN 16:45
PROVIDERS: PCP Nurse Practitioner; Visit Provider Obstetrics & Gynecology Gynecology
DX: Z85.42 Personal history of malignant neoplasm of other parts of uterus (principal)
CPT/HCPCS: 88305

== ENCOUNTER → 2022-04-01 10:32 | Outpatient (BNVA) | payer MEDICARE, MEDICAID, SELFPAY | PROVIDERS: PCP Nurse Practitioner Family; Referring Provider Nurse Practitioner; Visit Provider Student in an Organized Health Care Education/Training Program | DX: M75.51 Bursitis of right shoulder (principal); M17.11 Unilateral primary osteoarthritis, right knee | CPT/HCPCS: 20610; 99214; J1040 ==

== ENCOUNTER 2022-06-13 15:19 | Outpatient (REF) | payer MEDICARE, MEDICAID, SELFPAY ==
[2022-06-13 15:53] LABS: Abs Immature Grans 0.04 10^3/uL (0.0-0.06); Absolute Basophil Count 0.04 10^3/uL (0.0-0.2); Absolute Eosinophil Count 0.27 10^3/uL (0.0-0.7); Absolute Lymphocyte Count 1.97 10^3/uL (1.2-3.4); Absolute Monocyte Count 0.62 10^3/uL (0.1-0.8); Absolute Neutrophil Count 5.97 10^3/uL (1.2-6.7); Basophils % 0.4; HCT 44.6 % (36.0-46.0); HGB 14.7 g/dL (11.2-15.7); Immature Grans % 0.4; Lymphocytes % 22.1; MCV 88 fL (80-95); MPV 10.5 fL (8.0-11.0); Neutrophils % 67.1; Platelet Count 194 10^3/uL (130-400); RBC 5.07 10^6/uL (3.93-5.22); WBC 8.91 10^3/uL (4.4-10.8)
[2022-06-13 16:42] LABS: ALT 28 U/L (14-59); AST 30 U/L (15-37); Albumin 3.5 g/dL (3.4-5.0); Alkaline Phosphatase 79 U/L (46-116); Anion Gap 7.7 mmol/L (3-11); BUN 16 mg/dL (7-18); Bilirubin, Total 0.6 mg/dL (0.2-1.0); CO2 27.3 mmol/L (21.0-32.0); Calcium 8.9 mg/dL (8.5-10.1); Chloride 104 mmol/L (98-107); Estimated GFR 60.98 (mL/min/1.73m2); Glucose 118 mg/dL (74-106); Potassium 3.9 mmol/L (3.5-5.1); Sodium 139 mmol/L (136-145); Total Protein 7.4 g/dL (6.4-8.2)
== END 2022-06-13 15:20 | disposition home or self-care (01) ==
LOC: NCHCN 15:19
PROVIDERS: PCP Nurse Practitioner Family; Visit Provider Nurse Practitioner Family
DX: C54.1 Malignant neoplasm of endometrium (principal); E11.9 Type 2 diabetes mellitus without complications; M53.3 Sacrococcygeal disorders, not elsewhere classified
CPT/HCPCS: 80053; 85025

== ENCOUNTER 2022-06-27 01:07 | Outpatient (CLI) | payer MEDICARE, MEDICAID, SELFPAY ==
[2022-06-27] MEDS: Omnipaque 350 MG/ML 100 ML BTL IJ (10:46)
--- NOTE | 2022-06-27 11:03 | DI.CT_ITS ---
Exam(s) CT ABDOMEN PELVIS W EXAM: CT ABDOMEN PELVIS W CLINICAL HISTORY: PERINEAL PAIN,R10.2,TENDERNESS OF SKIN,? ABSCESS,H/O ENDOMETRIAL CA. TECHNIQUE: Imaging Protocol: Axial computed tomography images with coronal and sagittal reformatted images were created and reviewed CONTRAST MATERIAL: Intravenous: Omnipaque-350 100cc Oral: Yes. Oral contrast was administered for bowel opacification. COMPARISON: CT CT CHEST PE CTA from 03/05/2021 FINDINGS: VISUALIZED LUNG BASES: No nodules nor pleural effusions evident. ABDOMEN: There is no ascites. LIVER: There are no focal hepatic lesions evident. No dilated intrahepatic ducts. GALLBLADDER/BILIARY: No obvious gallbladder pathology. CBD is not dilated. PANCREAS: No evidence of pancreatic mass nor dilatation of the pancreatic duct. SPLEEN: Spleen size is upper normal.. No obvious intrasplenic lesions. Splenic and portal veins are patent. ADRENALS: There are no significant adrenal masses. KIDNEYS:No cysts evident. No solid renal masses. In the left kidney there is a hyperdensity in the lower pole infundibulum I which is probably a developing staghorn calculus. This measures approximat silvestre 1.6 x 0.7 by 2.1 cm. Similar finding not seen on the opposite-right side... ABDOMINAL AORTA: Abdominal aorta is not enlarged. LYMPH NODES:There is no retroperitoneal nor paraaortic adenopathy. ABDOMINAL WALL: No evidence of significant anterior abdominal wall nor inguinal hernia. GI: There is no evidence of bowel obstruction, free air, nor abscess. There is abundant fecal material noted throughout the colon. PELVIS: GI: No evidence of appendicitis.No evidence of sigmoid diverticulitis. LYMPH NODES: There is no intrapelvic nor inguinal adenopathy. REPRODUCTIVE: There are multiple calcifications in the myometrium consistent with calcified uterine f ibroids. There is also an IUD in the endometrial cavity. No abnormal adnexal masses. No free fluid in the pelvis. URINARY BLADDER: No calculi nor obvious masses evident OSSEOUS: No fractures and no significant osseous lesions. Other: The lower most images of this study reveals some increased density subcutaneous tissues over t he buttock, left more so than right but there is no true decubitus ulcer evident. No drainable fluid collection. The subjacent gluteus my axilla miss musculature appears unremarkable as do the hamstri ng muscles. IMPRESSION: 1. There appears to be a probable staghorn calculus in the lower pole aspect of the left kidney measu ring 16 x 7 x 21 millimeters. There is a possibly that this is just asymmetric rapid contrast excret ion in the left kidney. Further study with either noninfused CT scan or ultrasound can confirmed thi s as a true calculus. 2. There is abundant fecal material noted throughout the colon. No bowel obstruction. 3. There is an IUD in the endometrial canal in this 67-year-old patient. 4. Multiple calcified uterine fibroids noted. No abnormal adnexal masses nor free fluid in the pelvi s. 5. There is subcutaneous induration over the lower buttocks but no evidence of decubitus ulcer nor s ubcutaneous drainable fluid collection. RADIATION DOSE DELIVERED: 2,634.29mGy.cm Total DLP DATA REPOSITORY: All CT scans at this facility are submitted to the National Radiology Data Registry (NRDR) Dose Index Registry (DIR) with the [employer] (ACR). RADIATION OPTIMIZATION: All CT scans at this facility use at least one of these dose optimization te chniques: automated exposure control; mA and/or kV adjustment per patient size (includes targeted exa ms where dose is matched to clinical indication); or iterative reconstruction.
== END 2022-06-27 01:27 ==
LOC: DI 01:08
PROVIDERS: PCP Nurse Practitioner Family; Visit Provider Nurse Practitioner Family
DX: D25.9 Leiomyoma of uterus, unspecified (principal); R93.422 Abnormal radiologic findings on diagnostic imaging of left kidney
CPT/HCPCS: 74177; J3490

== ENCOUNTER 2022-07-19 00:34 | Outpatient (CLI) | payer MEDICARE, MEDICAID, SELFPAY ==
--- NOTE | 2022-07-19 | DI.US_ITS ---
Exam(s) US RENAL EXAM: US RENAL CLINICAL HISTORY: KIDNEY CALCULUS,N20.0F/U ABNL CT. TECHNIQUE: Nagel scale, color and spectral Doppler were used. COMPARISON: CT CT CHEST PE CTA from 03/05/[address] ABDOMEN PELVIS W from 06/27/2022 FINDINGS: Renal size in cm: Right: 9.7 left: 11.3 Echogenicity: Normal Hydronephrosis: No Cyst or mass: No Nephrolithiasis: 2.0 x 0.6 x 1.5 centimeter calcification seen at the lower pole collecting system of the left kidney. Bladder:Not well evaluated due to lack of distention and patient body habitus.. Prevoid vol:54 cc IMPRESSION: Large calcification in the lower poles collecting system of the left kidney. No hydronephrosis. DATA REPOSITORY:
== END 2022-07-19 00:54 ==
LOC: DI 00:34
PROVIDERS: PCP Nurse Practitioner Family; Visit Provider Nurse Practitioner Family
DX: N20.0 Calculus of kidney (principal)
CPT/HCPCS: 76770

== ENCOUNTER 2022-11-25 16:25 | Outpatient (REF) | payer MEDICARE, MEDICAID, SELFPAY ==
--- NOTE | 2022-11-25 15:30 | ENDOMET_PTH ---
PATIENT: Jacki Jimenez LOC: [facility] U#:[id number] AGE/SX: 67/F ROOM: RE11/25/[address]: Kourtney Aguilar : 1955 BED: DIS: 11/25/2022 SPEC #: [id number] RECD: 11/25/22 17:59 STATUS: RU REQ #: [id number] CHONG: 11/25/22 15:[address]: Kourtney Aguilar DEPT: Surgical Specimen RECD BY: Selina Mendoza ENTERED: 11/25/22 17:59 SP TYPE: Endomet OTHR DR: ALEXIS CHAPIN NP Tissues: 1 - ENDOMETRIUM BX/CURRETTE Procedures: GROSS AND MICRO LEVEL 4 Comments: [id number]
== END 2022-11-25 16:26 | disposition home or self-care (01) ==
LOC: LBN 16:25
PROVIDERS: PCP Nurse Practitioner Family; Visit Provider Obstetrics & Gynecology Gynecology
DX: Z85.9 Personal history of malignant neoplasm, unspecified (principal)
CPT/HCPCS: 88305

== ENCOUNTER → 2022-11-29 10:17 | Outpatient (BNVA) | payer MEDICARE, MEDICAID, SELFPAY | PROVIDERS: PCP Nurse Practitioner Family; Referring Provider Nurse Practitioner Family; Visit Provider Student in an Organized Health Care Education/Training Program | DX: M75.31 Calcific tendinitis of right shoulder (principal); M17.11 Unilateral primary osteoarthritis, right knee; E66.01 Morbid (severe) obesity due to excess calories; Z68.42 Body mass index [BMI] 45.0-49.9, adult; E11.9 Type 2 diabetes mellitus without complications | CPT/HCPCS: 20610; J1040 ==

== ENCOUNTER 2023-01-15 13:58 | Outpatient (REF) | payer MEDICARE, MEDICAID, SELFPAY ==
[2023-01-15 16:22] LABS: TSH (W/Ref FT4) 3.99 uIU/mL (0.36-3.74)
[2023-01-15 17:00] LABS: FREE T4 0.99 ng/dL (0.76-1.46)
== END 2023-01-15 13:59 | disposition home or self-care (01) ==
LOC: NCHCN 13:58
PROVIDERS: PCP Nurse Practitioner Family; Visit Provider Nurse Practitioner Family
DX: E03.9 Hypothyroidism, unspecified (principal); E11.9 Type 2 diabetes mellitus without complications; I10 Essential (primary) hypertension; F32.9 Major depressive disorder, single episode, unspecified
CPT/HCPCS: 84439; 84443

== ENCOUNTER 2023-04-17 11:05 | Outpatient (CLI) | payer MEDICARE, MEDICAID, SELFPAY ==
--- NOTE | 2023-04-17 09:45 | DI.RAD_ITS ---
Exam(s) XR SHOULDER RT COMPLETE 2+V EXAM: XR SHOULDER RT COMPLETE 2+V CLINICAL HISTORY: eval R shoulder pain s/p fall. TECHNIQUE: 2D digital imaging was performed. Five views. COMPARISON: CR XR SHOULDER RT COMPLETE 2+V from 02/07/2022 FINDINGS: BONES: No acute fracture is present. No bony destructive lesion is seen. JOINTS: No dislocation present. Spurring at the AC joint and undersurface of the acromion. Spurring at the greater tuberosity. Small calcification near greater tuberosity. Glenohumeral joint space i s maintained. There is spurring at the glenoid. SOFT TISSUE: Normal. IMPRESSION: Stable degenerative changes of the glenohumeral joint and AC joint. Calcific tendinosis again noted. DATA REPOSITORY: RADIATION DOSE DELIVERED:
== END 2023-04-17 11:06 | disposition home or self-care (01) ==
LOC: DIORS 11:05
PROVIDERS: PCP Nurse Practitioner Family; Referring Provider Nurse Practitioner Family; Visit Provider Student in an Organized Health Care Education/Training Program
DX: M75.31 Calcific tendinitis of right shoulder; M17.11 Unilateral primary osteoarthritis, right knee
CPT/HCPCS: 20610; 73030; J1040

== ENCOUNTER 2023-06-04 17:35 | Outpatient (REF) | payer MEDICARE, MEDICAID, SELFPAY ==
[2023-06-04 19:13] LABS: Hemoglobin A1C 6.6 % (<5.7)
[2023-06-04 19:23] LABS: ALT 22 U/L (14-59); AST 18 U/L (15-37); Albumin 3.4 g/dL (3.4-5.0); Alkaline Phosphatase 74 U/L (46-116); Anion Gap 7.4 mmol/L (3-11); BUN 20 mg/dL (7-18); Bilirubin, Total 0.7 mg/dL (0.2-1.0); CO2 29.6 mmol/L (21.0-32.0); CREATININE 1.1 mg/dL (0.55-1.02); Calcium 9.2 mg/dL (8.5-10.1); Calculated LDL 104 mg/dL (<100); Chloride 104 mmol/L (98-107); Cholesterol 185 mg/dL (<200); Estimated GFR 54.06 (mL/min/1.73m2); Glucose 115 mg/dL (74-106); HDL Cholesterol 50 mg/dL (40-60); Potassium 3.7 mmol/L (3.5-5.1); Sodium 141 mmol/L (136-145); TSH (W/Ref FT4) 1.98 uIU/mL (0.36-3.74); Total Protein 6.9 g/dL (6.4-8.2); Triglyceride 157 mg/dL (<150)
== END 2023-06-04 17:36 | disposition home or self-care (01) ==
LOC: NCHCN 17:35
PROVIDERS: PCP Nurse Practitioner Family; Visit Provider Nurse Practitioner Family
DX: E11.9 Type 2 diabetes mellitus without complications (principal)
CPT/HCPCS: 80053; 80061; 83036; 84443

== ENCOUNTER 2023-06-27 15:01 | Outpatient (REF) | payer MEDICARE, MEDICAID, SELFPAY ==
--- NOTE | 2023-06-27 14:30 | ENDOMET_PTH ---
PATIENT: Jacki Jimenez LOC: [facility] U#:[id number] AGE/SX: 68/F ROOM: RE06/27/[address]: Kourtney Aguilar : 1955 BED: DIS: 06/27/2023 SPEC #: [id number] RECD: 06/27/23 17:03 STATUS: RU REMickie #: [id number] CHONG: 06/27/23 14:[address]: Kourtney Aguilar DEPT: Surgical Specimen RECD BY: Selina Mendoza ENTERED: 06/27/23 17:03 SP TYPE: Endomet OTHR DR: ALEXIS CHAPIN, RAMESH Tissues: 1 - ENDOMETRIUM BX/PARULETTE Procedures: GROSS AND MICRO LEVEL 4 Comments: [id number]
== END 2023-06-27 15:02 | disposition home or self-care (01) ==
LOC: LBN 15:01
PROVIDERS: PCP Nurse Practitioner Family; Visit Provider Obstetrics & Gynecology Gynecology
DX: E11.9 Type 2 diabetes mellitus without complications (principal); E78.5 Hyperlipidemia, unspecified
CPT/HCPCS: 88305

== ENCOUNTER → 2023-07-17 09:41 | Outpatient (BNVA) | payer MEDICARE, MEDICAID, SELFPAY | PROVIDERS: PCP Nurse Practitioner Family; Referring Provider Nurse Practitioner Family | DX: M17.11 Unilateral primary osteoarthritis, right knee (principal); M75.31 Calcific tendinitis of right shoulder | CPT/HCPCS: 20610; J1040 ==

== ENCOUNTER → 2023-10-16 10:07 | Outpatient (BNVA) | payer MEDICARE, MEDICAID, SELFPAY | PROVIDERS: PCP Nurse Practitioner Family; Referring Provider Nurse Practitioner Family; Visit Provider Student in an Organized Health Care Education/Training Program | DX: M17.11 Unilateral primary osteoarthritis, right knee (principal); M75.31 Calcific tendinitis of right shoulder | CPT/HCPCS: 20610; J1010 ==

== ENCOUNTER 2023-12-01 16:26 | Outpatient (REF) | payer MEDICARE, MEDICAID, SELFPAY ==
[2023-12-01 18:54] LABS: HGB 14.8 g/dL (11.2-15.7); MCH 29.1 pg (27.0-33.0); MCHC 32.2 % (32.0-36.0); MCV 91 fL (80-95); MPV 10.8 fL (8.0-11.0); Platelet Count 191 10^3/uL (130-400); RBC 5.08 10^6/uL (3.93-5.22); RDW 14.6 % (11.7-14.6); RDW-SD 48.6 fL
[2023-12-01 19:48] LABS: ALT 24 U/L (14-59); AST 16 U/L (15-37); Albumin 3.7 g/dL (3.4-5.0); Alkaline Phosphatase 73 U/L (46-116); Anion Gap 8.2 mmol/L (3-11); BUN 30 mg/dL (7-18); Bilirubin, Total 0.51 mg/dL (0.2-1.0); CO2 31.8 mmol/L (21.0-32.0); CREATININE 1.2 mg/dL (0.55-1.02); Calculated LDL 76 mg/dL (<100); Chloride 105 mmol/L (98-107); Cholesterol 161 mg/dL (<200); Glucose 127 mg/dL (74-106); HDL Cholesterol 60 mg/dL (40-60); Sodium 145 mmol/L (136-145); TSH (W/Ref FT4) 2.24 uIU/mL (0.36-3.74); Total Protein 7.3 g/dL (6.4-8.2); Triglyceride 128 mg/dL (<150)
== END 2023-12-01 16:27 | disposition home or self-care (01) ==
LOC: NCHCN 16:26
PROVIDERS: PCP Nurse Practitioner Family; Visit Provider Nurse Practitioner Family
DX: E03.9 Hypothyroidism, unspecified (principal); I10 Essential (primary) hypertension; E78.5 Hyperlipidemia, unspecified; R53.83 Other fatigue
CPT/HCPCS: 80053; 80061; 85027; 84443

== ENCOUNTER 2023-12-26 06:34 | Day surgery (SDC) | payer MEDICARE, MEDICAID, SELFPAY ==
[2023-12-26 07:01] VITALS: BP 150/108; PULSE 84; RESP 18; TEMP 36.1; O2SAT 94
--- NOTE | 2023-12-26 07:13 | W.ANESPRE ---
General Info Date of Service Date Performed: 12/26/23 Height: 5 ft 1 in Weight: 121.4 kg Body Mass Index (BMI): 50.5 Surgical Procedure: Operation Date: 12/26/23 07:40 Proposed Procedure Side Surgeon p Cataract Extraction with IOL Implant Left Jason Fink MD Meds Allergies and Home Medications Allergies Allergy/AdvReac Type Severity Reaction Status Date / Time ranitidine Allergy Mild HIVES Verified 12/26/23 06:49 CATS Allergy RASH/ITCHING/BREATHING Uncoded 12/26/23 06:49 DIFFICULTIES FUMES Allergy BREATHING Uncoded 12/26/23 06:49 DIFFICULTIES PLASTIC Allergy RASH Uncoded 12/26/23 06:49 Home Medication ?Medication ?Instructions ?Recorded Advil 200 mg PO Q6H PRN 10/13/12 aspirin 81 mg tablet,delayed 81 mg PO DAILY 10/13/12 release (Aspir-) atenolol 100 mg tablet 100 mg PO DAILY 10/13/12 simvastatin 20 mg tablet 20 mg PO DAILY 10/13/12 levothyroxine 25 mcg tablet 25 mcg PO DAILY 12/07/12 (Synthroid) albuterol sulfate 90 mcg/actuation 2 puff inhalation Q6H PRN ##2 11/22/13 aerosol inhaler (ProAir HFA) loratadine 10 mg tablet 10 mg PO DAILY 09/14/14 cholecalciferol (vitamin D3) 50 2,000 unit PO DAILY 04/10/16 mcg (2,000 unit) capsule (Vitamin D3) amlodipine 5 mg tablet 5 mg PO DAILY 07/30/18 levonorgestrel 21 mcg/24 hr (up to 1 device intrauterine ONCE #1 08/02/18 8 years) 52 mg intrauterine device device (Mirena) exenatide microspheres 2 mg 2 mg subcut DIRECTED 03/08/19 subcutaneous extended release suspension hydrochlorothiazide 12.5 mg tablet 12.5 mg PO DAILY 03/05/21 sertraline 25 mg tablet 25 mg PO DAILY 01/29/22 valsartan 40 mg tablet 40 mg PO DAILY 11/25/22 clotrimazole-betamethasone 1 1 applic topical BID 2 weeks #45 03/27/23 %-0.05 % topical cream grams insulin glargine U-300 conc 300 50 unit subcut DAILY 06/27/23 unit/mL (3 mL) subcutaneous pen (Toujeo Max U-300 SoloStar) celecoxib 200 mg capsule See Rx Instructions .Route 11/04/23 .COMPLEX #30 caps Current Visit Medications: Current Medications Generic Name Dose Route Start Last Admin Trade Name Freq PRN Reason Stop Dose Admin Acetaminophen 1,000 mg 12/26/23 06:00 Acetaminophen 500 Mg Tab PO 01/25/24 05:59 Q4H PRN PRN Balanced Salt Solution 500 ml 12/26/23 06:00 Balanced Salt Soln.-Plus 500 Ml Bag OP 01/25/24 05:59 DIRECTED KERMIT Miscellaneous Medication 0 ml 12/26/23 06:00 Prednisolone 1%, Moxifloxacin 0.5%, Bromfenac 0.09% 5ml Btl OS 01/25/24 05:59 DIRECTED KERMIT Miscellaneous Medication 0 ml 12/26/23 06:00 12/26/23 07:00 Tropicam./Phenyleph. (1/2.5%) 10 Ml Btl OS 01/25/24 05:59 1 drp DIRECTED KERMIT Administration Tetracaine HCl 0 ml 12/26/23 06:00 Tetracaine 0.5% 4 Ml Btl OS 01/25/24 05:59 DIRECTED KERMIT PFSH Active Problems Active Problems: Problem Status Onset Code Posterior subcapsular age-related cataract of left eye Acute H25.042 Cortical age-related cataract, left eye Acute H25.012 Nuclear age-related cataract, left eye Acute H25.12 Vulvar candidiasis Acute B37.31 Arthritis of right glenohumeral joint Acute M19.011 Calcific tendonitis of right shoulder Acute M75.31 Arthritis of right acromioclavicular joint Acute M19.011 Osteoarthritis of right knee Acute M17.11 Bursitis of right shoulder Acute M75.51 Vaginitis and vulvovaginitis Acute N76.0 Discharge planning issues Acute Z02.9 DVT prophylaxis Acute Z29.9 Hypomagnesemia Resolved E83.42 Hypokalemia Resolved E87.6 Pneumonia due to 2019 novel coronavirus Acute U07.1, J12.82 COVID Acute U07.1 History of endometrial biopsy Chronic Z92.89 Sudden-onset sensorineural hearing loss Acute H91.20 Unilateral sensorineural hearing loss Acute H90.5 Neoplasm of unspecified behavior of bone, soft tissue, and skin Acute D49.2 Type 2 diabetes mellitus with complication Chronic 10/31/17 E11.8 Sensorineural hearing loss, asymmetrical Acute 06/27/14 H90.5 Sensorineural hearing loss, unilateral, right ear, with unrestricted hearing on the contralateral side Acute 08/07/15 H90.41 Osteoarthritis Acute 10/31/17 M19.90 Impairment of auditory discrimination Acute 06/27/14 H93.299 IUD (intrauterine device) in place Acute 10/31/17 Z97.5 Hyperlipidemia associated with type 2 diabetes mellitus Acute 10/31/17 E11.69, E78.5 Gastroesophageal reflux disease without esophagitis Acute 10/31/17 K21.9 Essential hypertension Acute 10/31/17 I10 Depression Acute 10/31/17 F32.9 Coronary arteriosclerosis Acute 10/31/17 I25.10 BMI 50.0-59.9, adult Acute 10/31/17 Z68.43 Adenocarcinoma of endometrium Acute 12/07/12 C54.1 Acquired hypothyroidism Acute 10/31/17 E03.9 Replacement of total knee joint Resolved Open Carpal Tunnel release Resolved Hemicolectomy Resolved ~2003 Gastroesophageal reflux disease Chronic Hypothyroidism Chronic Hyperlipidemia Chronic Coronary arteriosclerosis Chronic Benign hypertension Chronic Morbid obesity Chronic Diabetes mellitus, type 2 Chronic Obstructive sleep apnea syndrome Chronic Chronic osteoarthritis Chronic Medical History Medical History Adenocarcinoma of endometrium Grade 1 diagnosed 2012. No surgery secondary to patient's comorbidities. Mirena IUD inserted 2013 patient has in which her biopsies every 6 months. Adenocarcinoma remains present grade 1 MELONY (obstructive sleep apnea) (10/31/17) severe untreated MELONY noteably crowded aiway. Anesthesia to monitor closely-per PCP H&P Medical History Comments:: pt. reports hard time waking up once Surgical History Surgical History Hx of shoulder surgery left History of carpal tunnel release of both wrists History of hemicolectomy History of arthroplasty of left knee Tobacco Smoking/Tobacco Use Status: Never Alcohol Alcohol Intake: never Substance Use Substance use: Never Substance use type: does not use Prental History History 1 Para Hx # Term Pregnancies Multiple births Hx # Pregnancies Ectopic pregnancies AB induced Hx Number of Living Children 1 AB spontaneous Vital Signs and Lab Results Vital Signs Most Recent Vital Signs in EMR: Most Recent Vital Signs Temp Pulse Resp BP Pulse Ox 36.1 C L 84 18 150/108 H 94 12/26/23 07:01 12/26/23 07:01 12/26/23 07:01 12/26/23 07:01 12/26/23 07:01 Point of Care Results Point of Care Results: Finger Stick Blood Glucose 175 12/26/23 06:58 Lab Results Blood Type / Crossmatch: No Data to Display Complete Blood Count: White Blood Count 11.00 10^3/uL (4.4-10.8) H 12/01/23 15:40 Red Blood Count 5.08 10^6/uL (3.93-5.22) 12/01/23 15:40 Hemoglobin 14.8 g/dL (11.2-15.7) 12/01/23 15:40 Hematocrit 46.0 % (36.0-46.0) 12/01/23 15:40 Platelet Count 191 10^3/uL (130-400) 12/01/23 15:40 Complete Metabolic Panel: Sodium 145 mmol/L (136-145) 12/01/23 15:40 Potassium 4.0 mmol/L (3.5-5.1) 12/01/23 15:40 Chloride 105 mmol/L (98-107) 12/01/23 15:40 Carbon Dioxide 31.8 mmol/L (21.0-32.0) 12/01/23 15:40 BUN 30 mg/dL (7-18) H 12/01/23 15:40 Creatinine 1.2 mg/dL (0.55-1.02) H 12/01/23 15:40 Est GFR (CKD-EPI 2020) 48.70 (mL/min/1.73m2) 12/01/23 15:40 Calcium 9.0 mg/dL (8.5-10.1) 12/01/23 15:40 Albumin 3.7 g/dL (3.4-5.0) 12/01/23 15:40 Glucose 127 mg/dL (74-106) H 12/01/23 15:40 Liver Function Panel: Alanine Aminotransferase (ALT/SGPT) 24 U/L (14-59) 12/01/23 15:40 Aspartate Amino Transf (AST/SGOT) 16 U/L (15-37) 12/01/23 15:40 Coagulation Panel: No Data to Display Cardiac Panel: No Data to Display Arterial Blood Gas: No Data to Display Venous Blood Gas: No Data to Display Pancreas Panel: No Data to Display Thyroid Panel: Thyroid Stimulating Hormone (TSH) 2.24 uIU/mL (0.36-3.74) 12/01/23 15:40 Infectious Disease: No Data to Display Blood Cultures: No Data to Display Toxicology Panel: No Data to Display Imaging and Studies Imaging and Studies Study information below may be from another EMR and interpreted by another provider. Please see original notes in EMR for more complete details. EKG Summary: DATE/TIME OF SERVICE: 03/04/212058 : 1955 PERFORMING LOCATION: [place] APPROVED REPORT Exam: Resting ECG Reason for Exam: SOB COVID Patient Location: E HR:74 bpm ECG Measurements Heart Rate 74 AXIS SD 176 P 61 QRSd 151 QRS -17 QT 475 T2 QTc 528 Conclusion Sinus rhythm...normal P axis, V-rate 60- 99 Right bundle branch block...QRSd>120, terminal axis(90,270) Probable left ventricular hypertrophy...(RaVL+SV3)xQRSd >300 Physician: No stemi, RBBB, unchanged from 2005 Stress Test Summary: Date of study: 11/23/2018 *PATIENT PRESENTATION* Height: 154.9cm (61in) Blood Pressure: Weight: 126.8kg (279lb) BSA: 2.42m^2 Referring physician: Scott Levin MD Ordering physician: Cherelle Boyce Impressions: Normal perfusion by [id number] Sestamibi Imaging. Summary: 1. Myocardial perfusion imaging: No myocardial perfusion defects noted. 2. The calculated left ventricular ejection fraction after stress: 72%. Pulmonary Function Summary: DATE OF SERVICE November 25, 2018 REQUESTING PROVIDER Cherelle Boyce NP INTERPRETATION OF STUDY Spirometry shows no evidence of obstructive airways disease. No bronchodilator response. LUNG VOLUMES - Lung volumes show no evidence of restriction. DIFFUSION CAPACITY- Normal. AIRWAY RESISTANCE - Normal. IMPRESSION Overall normal pulmonary function study. Clinical correlation recommended. Anesthesia Assessment and Plan Anesthesia History Personal History: Delayed Emergence Family History: No Family History of Anesthesia Complications Exercise Tolerance Exercise Tolerance: Metabolic Equivalents>4 Pertinent Negatives Pertinent Negatives: No Symptoms of GERD, No Major Pulmonary Symptoms or Complaints and No History of CVA/TIA Cardiac & Pulmonary Exam Cardiac Exam: Normal S1/S2 Heart Sounds Pulmonary Exam: Clear Bilateral Breath Sounds Implantable Cardiac Device Does patient have a Pacemaker or an ICD?: No Airway Exam Known Difficult Airway: No Mallampati Class: 2 Mouth Opening: Normal (> 3cm) Thyromental Distance: Less than 3 cm Neck Range of Motion: Full ROM Neck Circumference: Thick Teeth Condition: Normal Dentition ASA Classification ASA Score: ASA 3 Emergency Case?: No NPO Status NPO Status: NPO Clears >2 hours, Solids >8 hours Anesthesia Plan Resuscitation Status: Full Code Anesthesia Technique: MAC Anesthesia Airway Planned: Natural Airway Monitors Used: Standard Monitors
[2023-12-26 07:14] VITALS: BMI 50.5
[2023-12-26] MEDS: Povidone-Iodine Ophth 30 ML BTL (07:32)
[2023-12-26] MEDS: Tetracaine 0.5% 4 ML BTL OS (07:32)
[2023-12-26] MEDS: Balanced Salt Soln.-PLUS 500 ML BAG OP (07:42)
[2023-12-26] MEDS: Duovisc Viscoelastic System EACH 1 EACH (07:43)
[2023-12-26] MEDS: Lidocaine 1% Pres-Free 5 ML VIAL (07:43)
[2023-12-26 08:07] VITALS: BP 169/94; PULSE 76; RESP 20; TEMP 36.5; O2SAT 96
--- NOTE | 2023-12-26 08:07 | W.PM.DSUDISC ---
Date of service: 12/26/23 Time of Service: 08:07 Discharge Plan Disposition Patient Disposition: Home Discharge Details Attending Provider: Jason Fink Primary Care Provider: ALEXIS CHAPIN Home Meds and New Rx's Prescriptions: No Action insulin glargine U-300 conc [Toujeo Max U-300 SoloStar] 300 unit/mL (3 mL) insulin pen 50 unit subcut DAILY Patient Comments: pt. took 38 units amlodipine 5 mg tablet 5 mg PO DAILY Mirena 20 mcg/24 hr (5 years) intrauterine device 1 device Intrauterine ONCE Qty: 1 0RF exenatide microspheres 2 mg suspension,extended rel recon 2 mg SC DIRECTED valsartan 40 mg tablet 40 mg PO DAILY ADVIL 200 MG capsule 200 mg PO Q6H PRN atenolol 100 MG tablet 100 mg PO DAILY aspirin [Aspir-81] 81 MG tablet,delayed release (DR/EC) 81 mg PO DAILY simvastatin 20 MG tablet 20 mg PO DAILY levothyroxine [Synthroid] 25 MCG tablet 25 mcg PO DAILY albuterol sulfate [ProAir HFA] 8.5 GM HFA aerosol inhaler 2 puff Inhalation Q6H PRN Qty: 2 Patient Comments: 09/14/14 Pt states she has not used in months. PG cholecalciferol (vitamin D3) [Vitamin D3] 2,000 UNIT capsule 2,000 unit PO DAILY sertraline 25 mg tablet 25 mg PO DAILY clotrimazole-betamethasone 1-0.05 % cream 1 applic topical BID 14 Days Qty: 45 4RF celecoxib 200 mg capsule See Rx Instructions .ROUTE .COMPLEX Qty: 30 3RF Dose Instruction: TAKE 1 CAPSULE BY MOUTH TWICE DAILY NEEDED FOR PAIN Rx Instructions: TAKE 1 CAPSULE BY MOUTH TWICE DAILY NEEDED FOR PAIN loratadine 10 MG tablet 10 mg PO DAILY hydrochlorothiazide 12.5 mg tablet 12.5 mg PO DAILY Discharge Instructions Stand Alone Forms: [facility] Post-Op [facility] ([facility]) Discharge Orders Discharge Orders: Discharge Order (Routine); Ordered 12/26/23 Ordered By: Jason Fink DS: Diagnosis Discharge Diagnosis (1) Posterior subcapsular age-related cataract of left eye: Status: Resolved (2) Cortical age-related cataract, left eye: Status: Resolved (3) Nuclear age-related cataract, left eye: Status: Resolved
--- NOTE | 2023-12-26 08:08 | W.PM.OP ---
Date of service: 12/26/23 Time of Service: 08:08 Operative Note Operative Note DATE OF PROCEDURE: 12/26/23 PRE-OP DIAGNOSIS: Nuclear/cortical/posterior subcapsular cataract, left eye POST-OP DIAGNOSIS: same PROCEDURE: Cataract extraction using phacoemulsification with intraocular lens implant, left eye SURGEON: Jason Fink ANESTHESIA TYPE: Local By Surgeon and MAC Refer to Anesthesia Record PATHOLOGY: none sent COMPLICATIONS: None Patient was transported to: same day Patient's condition: stable Implants: Duke and Duke Tecnis Eyhance [id number] Indications: Progressive decreased vision due to cataract, left eye Procedure Description: CATARACT SURGERY OPERATIVE REPORT PREOPERATIVE DIAGNOSIS: 1. Nuclear/cortical/posterior subcapsular cataract, left eye POSTOPERATIVE DIAGNOSIS: Same OPERATION: 1. Cataract extraction using phacoemulsification with posterior chamber intraocular lens implant, left eye. IOL: IOL Finish Specialist/Model: Duke & Duke Tecnis Eyhance DIB00 IOL Power: + 19.0 diopters IOL Serial Number: [id number] Optic Diameter: 6.0 mm Haptic/Overall Diameter: 13.0 mm PHACO INFO: Jagdish SpoonRocketurion Vision System with OZil and Active Fluidics Cumulative Dispersed Energy (CDE): 13.76 seconds SURGEON: Jason Fink MD, BRIAN ANESTHESIA: Monitored A [facility] (MAC), with local sub-tenon's anesthetic infiltration COMPLICATIONS: None SPECIMENS: None INDICATIONS FOR PROCEDURE: The patient is a 68-year-old lady with history of moderate myopia who has developed significant bilateral nuclear/cortical/posterior subcapsular cataract in both eyes. She is significantly symptomatic that she desires cataract surgery and attempt to improve and maximize her vision. The option of cataract surgery was offered to the patient and she wished to proceed. Postoperative refractive target is approximately -2.50 diopters, she wants to continue to be able to read without glasses. PROCEDURE: The correct surgical eye was identified and marked as the left eye and the pupil was dilated in the preoperative area using mydriatics and cycloplegics. The dilated pupil size was 7.0 mm. The patient elected to proceed without oral sedation. The patient was brought to the operating room where cardiopulmonary monitoring was instituted and surgical time-out was performed, confirming the correct operative eye and IOL power. Topical anesthesia was administered and ophthalmic povidone-iodine 5% was instilled into the conjunctival fornices. The cecilia-ocular area was prepped with Betadine 10% solution and draped in the usual sterile fashion for intraocular surgery, including an aperture drape. A Tegaderm transparent film dressing was cut in half and used to cover the lashes and lid margins. Care was taken to sequester the lashes and lid margins under the Tegaderm dressing. A lid speculum was placed between the lids of the operative eye and the Jagdish LuxOR Revalia operating microscope was maneuvered into position. Mercedez scissors were then used to make a conjunctival buttonhole approximately 6mm posterior to the limbus in the inferonasal quadrant. Blunt dissection was carried out to expose bare sclera, and a blunt-tipped sub-tenon?s anesthesia cannula was introduced and passed posteriorly along the globe where non-preserved plain lidocaine was injected into posterior sub-Tenon?s space. A sideport knife was used to make a paracentesis port. Intraocular phenylephrine/lidocaine was injected into the anterior chamber.. The anterior chamber was filled with viscoelastic. A keratome knife was used to construct a 2-plane near-clear corneal tunnel extending 2.0mm into clear cornea. A flap was raised on the anterior capsule and capsulorhexis forceps were used to complete a continuous curvilinear capsulorhexis of 5.0 mm. Balanced salt solution was then used to perform cortical cleaving hydrodissection and nuclear hydrodelineation until the lens could be freely rotated within the capsular bag. The lens nucleus was then disassembled and removed within the capsular bag and iris plane using phacoemulsification. Residual cortical material was removed using the irrigation/aspiration handpiece. The posterior capsule was carefully polished to remove as much residual lens epithelial cells as safely possible. The capsular bag was then inflated and the anterior chamber deepened with viscoelastic. The lens implant described above was inserted into the capsular bag using the Duke and Duke Simplicity pre-loaded injector. A Kuglen hook was used to dial the IOL into position. Residual viscoelastic was then removed first from posterior to the IOL, then from the anterior chamber using the I/A handpiece. The lens implant was noted to center nicely within the capsular bag. The incisions were stromally hydrated, and the anterior chamber was reformed using BSS. Then 0.5cc of moxifloxacin 1.0mg/ml were injected into the capsular bag and anterior chamber. The incisions were checked with a Weck spear and found to be secure. Several drops of ophthalmic povidone-iodine 5% were then applied to the eye followed by two drops of Imprimis combination prednisolone/moxifloxacin/nepafenac solution. The drapes were removed and a clear plastic protective eye shield was placed over the eye. The patient was then returned to [facility] Day Surgery in stable condition.
--- NOTE | 2023-12-26 08:36 | W.ANESPOSTOP ---
Postoperative Evaluation Date, Time and Location Date Performed: 12/26/23 Time Performed: 08:30 Patient Location: Day Surgery Unit Vital Signs Most Recent Imported Vital Signs: Most Recent Vital Signs Temp Pulse Resp BP Pulse Ox 36.5 C 76 20 169/94 H 96 12/26/23 08:07 12/26/23 08:07 12/26/23 08:07 12/26/23 08:07 12/26/23 08:07 Pain Score Most Recent Pain Score: Most Recent Pain Score Pain Level 0 12/26/23 08:07 Assessment Mental Status: Awake (Alert & Oriented to Patient Baseline) Airway and Respiratory Function: Patent airway with normal (patient baseline) respiratory exam Cardiovascular Function: Hemodynamically Stable Hydration Status: Adequately Hydrated Nausea & Vomiting: No Nausea or Vomiting Pain: Pt. Denies Any Pain Peripheral Nerve Block: Patient did not receive a nerve block
--- NOTE | 2023-12-26 12:57 | NUR.NOTE ---
Nursing Note: Patient called the unit at 1257 and spoke to Betzy LENZ, pt states that she is currently nauseous, dizzy, sweating and has mouth pain. Pt inquiring as to what she should do. Betzy LENZ confirmed with Estela LENZ that the best course of action is to go to the emergency department for prompt evaluation. This was communicated to the patient by Betzy LENZ. Pt stated she isn't sure if she has a ride, RN advised that she should call an ambulance if she does not have a ride. Pt states her daughter works in the hospital but is in an important meeting currently. RN advised to reach out to her and interrupt her meeting in order to receive prompt evaluation and possible treatment for the situation. Patient verbalized understanding and stated that she will call her daughter immediately.
--- NOTE | 2023-12-26 16:42 | W.OPTHCONSUL ---
Date of service: 12/26/23 Time of Service: 16:42 History of Present Illness History of Present Illness Chief Complaint: Severe pain/headache/nausea/vomiting Narrative: The patient is a 68-year-old lady who underwent uncomplicated cataract extraction with lens implantation in the left eye this morning. She was discharged without incident. However, this afternoon she noted onset of severe left-sided headache, eye pain, pressure, nausea/vomiting, and sweating. She was taken to the ED by ambulance. Assessment and Plan Assessment and plan (1) Elevated IOP: Status: Acute Assessment and plan: Assessment: Acutely elevated intraocular pressure following uncomplicated cataract surgery in the left eye. Surgery was routine, and the patient has no history of glaucoma or ocular hypertension. Care was taken to remove all residual viscoelastic from the anterior chamber at the close of surgery. However, she has a very elevated intraocular pressure. Topical tetracaine was placed on the eye, followed by 2 drops of combination antibiotic/steroid/NSAID topical eyedrops. A Kugel and hook was used to depress the edge of the superior paracentesis site, where a gush of aqueous was noted to egress. A small additional amount of aqueous was then expressed. The patient immediately felt better, and recheck of the intraocular pressure revealed pressure of 4 to 6 mmHg. Plan: The patient will be given acetazolamide 250 mg IV x 1 dose. She would be given a 500 mg dose of acetazolamide p.o. She will be discharged on timolol 0.5% every hour while awake in the left eye, as well as brimonidine 0.15% every hour while awake in the left eye for this evening. She is going to follow-up in the morning for her postoperative follow-up visit. Qualifiers: Laterality: left Qualified Code(s): H40.052 - Ocular hypertension, left eye [facility] All Active Problems (Updated 12/26/23 @ 16:46 by Jason Fink MD) Elevated IOP (Acute) Vulvar candidiasis (Acute) Arthritis of right glenohumeral joint (Acute) Calcific tendonitis of right shoulder (Acute) DEPO MEDROL 11/29/22; 04/17/23; 07/17/23; 10/16/23 Arthritis of right acromioclavicular joint (Acute) Osteoarthritis of right knee (Acute) DEPO 11/29/22; 04/01/22; 04/17/23; 07/17/23; 10/16/23 Bursitis of right shoulder (Acute) DEPO 04/01/22 Vaginitis and vulvovaginitis (Acute) Discharge planning issues (Acute) DVT prophylaxis (Acute) Pneumonia due to 2019 novel coronavirus (Acute) COVID (Acute) History of endometrial biopsy (Chronic) q6mo. Surveillance of endometrial CA. Sudden-onset sensorineural hearing loss (Acute) Unilateral sensorineural hearing loss (Acute) Neoplasm of unspecified behavior of bone, soft tissue, and skin (Acute) Type 2 diabetes mellitus with complication (Chronic 10/31/17) Sensorineural hearing loss, asymmetrical (Acute 06/27/14) Sensorineural hearing loss, unilateral, right ear, with unrestricted hearing on the contralateral side (Acute 08/07/15) Osteoarthritis (Acute 10/31/17) Impairment of auditory discrimination (Acute 06/27/14) IUD (intrauterine device) in place (Acute 10/31/17) 2012. Mirena initially placed to treat endometrial adenocarcinoma. 07/2014 IUD not in uterus on ultrasound. New Mirena inserted. 2019. Mirena removed and new IUD inserted. 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 Not a surgery candidate. Mirena IUD in place. EMBx q6mo. If pt develops bleeding or adenocarcinoma advances beyond FIGO1 will begin Megace. 06/2013 residual adenocarcinoma FIGO 1. 11/2013 atypical complex hyperplasia. 06/2014 endometrial adenocarcinoma FIGO1. 08/2014 endometrial adenocarcinoma FIGO 1. 04/2015 atypical complex hyperplasia. suspicious for adenocarcinoma. 04/2016 Neg for complex hyperplasia. exogenous hormone effect. 10/2015 Complex hyperplasia with atypia. Pt did not return to [facility] until 2018. I began caring for her at that time. 10/2017 Inactive endometrium with progesterone effect. Neg for complex hyperplasia or malignancy. 05/2018 atypical complex hyperplasia. ? focal finding of adenocarcinoma. 03/2019. Focal atypical muncinous epithelium. Acquired hypothyroidism (Acute 10/31/17) Gastroesophageal reflux disease (Chronic) Hypothyroidism (Chronic) Hyperlipidemia (Chronic) Coronary arteriosclerosis (Chronic) Benign hypertension (Chronic) Morbid obesity (Chronic) 05/2018 BMI 52 Diabetes mellitus, type 2 (Chronic) Obstructive sleep apnea syndrome (Chronic) Chronic osteoarthritis (Chronic) Medical History (Updated 12/26/23 @ 16:46 by Jason Fink MD) Adenocarcinoma of endometrium Grade 1 diagnosed 2012. No surgery secondary to patient's comorbidities. Mirena IUD inserted 2012 patient has in which her biopsies every 6 months. Adenocarcinoma remains present grade 1 MELONY (obstructive sleep apnea) (10/31/17) severe untreated MELONY noteably crowded aiway. Anesthesia to monitor closely-per PCP H&P Surgical History (Updated 12/26/23 @ 08:08 by Jason Fink MD) Hx of shoulder surgery left History of carpal tunnel release of both wrists History of hemicolectomy History of arthroplasty of left knee Family History Mother Hypertensive disorder, systemic arterial Father Acute poliomyelitis Brother Hypertensive disorder, systemic arterial Diabetes Brother Diabetes Personal history of malignant neoplasm Social History Smoking/Tobacco Use Status: Never Smoking risk assessment performed?: Yes Alcohol Intake: never Drug use: Never Substance use type: does not use Housing: house Number of Children: 1 current occupation: Not working secondary to disabilities Seatbelt use: always Do you feel safe at home: Yes Do you feel safe in your relationship?: Yes History History 1 Para Hx # Term Pregnancies Multiple births Hx # Pregnancies Ectopic pregnancies AB induced Hx Number of Living Children 1 AB spontaneous Exam Eyes Other: Slit-lamp examination of the left eye is challenging due to the patient's eye pain. However, after some topical tetracaine we were able to get her positioned in the slit-lamp. The eye is not injected. There is only very slight diffuse corneal epithelial edema. The pupil is dilated to 7 mm. The anterior chamber is deep. There is a well-positioned lens implant. The incisions are well sealed. Intraocular pressure testing with the iCare measures 60 mmHg. Multiple repeat tests give similar results. Results Last Vital Signs Temp 36.5 C 12/26/23 08:07 Pulse 76 12/26/23 08:07 Resp 20 12/26/23 08:07 BP 169/94 H 12/26/23 08:07 Pulse Ox 96 12/26/23 08:07
== END 2023-12-26 08:52 | disposition home or self-care (01) ==
LOC: SUR 06:34
PROVIDERS: PCP Nurse Practitioner Family; Visit Provider Ophthalmology
PROC: (CPT 66984; principal; 2023-12-26 07:30)
DX: H25.042 Posterior subcapsular polar age-related cataract, left eye (principal); H25.012 Cortical age-related cataract, left eye; H25.12 Age-related nuclear cataract, left eye; H40.052 Ocular hypertension, left eye
CPT/HCPCS: 66984; 00123; V2632; J2003

== ENCOUNTER 2023-12-26 14:17 | Emergency (ER) | payer MEDICARE, MEDICAID, SELFPAY ==
[2023-12-26 14:19] VITALS: BP 169/85; PULSE 79; RESP 20; TEMP 36.2; O2SAT 97
--- NOTE | 2023-12-26 14:21 | ED.GENADUL_ITS ---
Discharge Plan Disposition Patient Disposition: Home Discharge Details Clinical Impression: Elevated IOP Primary Care Provider: ALEXIS CHAPIN ED Provider: Cristi Castro Home Meds and New Rx's Prescriptions: New Betimol 0.5 % drops 1 drp ophthalmic (eye) Q1H WHILE AWAKE Qty: 15 0RF brimonidine 0.1 % drops 1 drp ophthalmic (eye) Q1H WHILE AWAKE Qty: 10 0RF Continued insulin glargine U-300 conc [Toujeo Max U-300 SoloStar] 300 unit/mL (3 mL) insulin pen 50 unit subcut DAILY Patient Comments: pt. took 38 units amlodipine 5 mg tablet 5 mg PO DAILY Mirena 20 mcg/24 hr (5 years) intrauterine device 1 device Intrauterine ONCE Qty: 1 0RF exenatide microspheres 2 mg suspension,extended rel recon 2 mg SC DIRECTED valsartan 40 mg tablet 40 mg PO DAILY ADVIL 200 MG capsule 200 mg PO Q6H PRN atenolol 100 MG tablet 100 mg PO DAILY aspirin [Aspir-81] 81 MG tablet,delayed release (DR/EC) 81 mg PO DAILY simvastatin 20 MG tablet 20 mg PO DAILY levothyroxine [Synthroid] 25 MCG tablet 25 mcg PO DAILY albuterol sulfate [ProAir HFA] 8.5 GM HFA aerosol inhaler 2 puff Inhalation Q6H PRN Qty: 2 Patient Comments: 09/14/14 Pt states she has not used in months. PG cholecalciferol (vitamin D3) [Vitamin D3] 2,000 UNIT capsule 2,000 unit PO DAILY sertraline 25 mg tablet 25 mg PO DAILY clotrimazole-betamethasone 1-0.05 % cream 1 applic topical BID 14 Days Qty: 45 4RF celecoxib 200 mg capsule See Rx Instructions .ROUTE .COMPLEX Qty: 30 3RF Dose Instruction: TAKE 1 CAPSULE BY MOUTH TWICE DAILY NEEDED FOR PAIN Rx Instructions: TAKE 1 CAPSULE BY MOUTH TWICE DAILY NEEDED FOR PAIN loratadine 10 MG tablet 10 mg PO DAILY hydrochlorothiazide 12.5 mg tablet 12.5 mg PO DAILY Discharge Instructions Additional Instructions: You are seen in the emergency department for your headache. You are found to have elevated pressure in your eye for which you are receiving medications which you should take as directed. Please follow-up with your eye care provider as previously advised. Please return to the emergency department if you develop worsening headache nausea vomiting or if you have any other concerns. Discharge Data Discharge Date/Time-TO BE ENTERED AT DEPARTURE: 12/26/23 17:37 HPI General Date/Time Provider Initiated Documentation: 12/26/23 14:20 . HPI Narrative: MDM This is an uncomfortable but afebrile and nontachycardic 68-year-old female with gradual onset headache postop day 0 status post left-sided cataract surgery most consistent with postoperative pain. Headache was not sudden in onset and was not thunderclap so my suspicion is low for subarachnoid hemorrhage I did not obtain a CT scan. No recent chiropractic manipulation and no neck pain so doubt cervical arterial dissection. No history of polymyalgia rheumatica so my suspicion is low for giant cell arteritis so I did not send an ESR nor CRP. No nuchal rigidity to suggest meningitis I did not feel that the patient required lumbar puncture. No focal neurological deficits so my suspicion is low for CVA so I did not feel that the patient required an MRI nor a neurology consult. No significant nystagmus nor dizziness so my suspicion is low for posterior circulation CVA. No trauma to head so I doubt subdural hematoma. Will attempt treatment with acetaminophen and morphine as patient has taken ibuprofen at 10 AM. Will consider ketorolac if patient has persistent headache and well use tetracaine for local analgesia. 8:38 PM Patient was seen by Dr. Fink in the ED. Please see his note. He advised treatment for elevated intraocular pressure which are initiated. Patient felt markedly improved. Treatment discussed return indications including fevers any headache or any other concerns. She understood her return indications and was discharged with empiric trial of expectant outpatient management. HPI This is a 68-year-old female who is postop day 0 status post left-sided corneal surgery at [facility] emergency department via EMS in the setting of headache nausea and vomiting. Patient developed a gradual onset headache at approximately 10 AM this morning. She took ibuprofen but this did not improve her symptoms. Her headache was left-sided and worse just behind her left eye. She has not taken any recent falls. She denies chiropractic manipulation. She denies any exposure to recent generators. No unintentional weight loss. No history of polymyalgia rheumatica. Exam General: Uncomfortable-appearing in no acute distress speaking in complete sentences. Head: Normocephalic, atraumatic. Eye: Extraocular eye movements intact. No conjunctival injection. No scleral icterus. Ear, nose, mouth, throat: Grossly normal inspection. Normal voice, handling secretions normally. Neck: Trachea midline. Cardiovascular: Well-perfused distal extremities. Respiratory: Nonlabored respiration. Gastrointestinal: Nondistended abdomen. Musculoskeletal: No edema. Moving all 4 extremities spontaneously. Skin: Normal for age and race, grossly normal temperature and turgor. No acute rash. Neurologic: Alert and appropriate, no apparent acute deficits. Psychiatric: Mood and manner are appropriate. Grooming and personal hygiene are appropriate. Related Data Home Medications ?Medication ?Instructions ?Recorded ?Confirmed Advil 200 mg PO Q6H PRN 10/13/12 12/26/23 aspirin 81 mg tablet,delayed 81 mg PO DAILY 10/13/12 12/26/23 release (Aspir-) atenolol 100 mg tablet 100 mg PO DAILY 10/13/12 12/26/23 simvastatin 20 mg tablet 20 mg PO DAILY 10/13/12 12/26/23 levothyroxine 25 mcg tablet 25 mcg PO DAILY 12/07/12 12/26/23 (Synthroid) albuterol sulfate 90 mcg/actuation 2 puff inhalation Q6H PRN ##2 11/22/13 12/26/23 aerosol inhaler (ProAir HFA) loratadine 10 mg tablet 10 mg PO DAILY 09/14/14 12/26/23 cholecalciferol (vitamin D3) 50 2,000 unit PO DAILY 04/10/16 12/26/23 mcg (2,000 unit) capsule (Vitamin D3) amlodipine 5 mg tablet 5 mg PO DAILY 07/30/18 12/26/23 levonorgestrel 21 mcg/24 hr (up to 1 device intrauterine ONCE #1 08/02/18 12/26/23 8 years) 52 mg intrauterine device device (Mirena) exenatide microspheres 2 mg 2 mg subcut DIRECTED 03/08/19 12/26/23 subcutaneous extended release suspension hydrochlorothiazide 12.5 mg tablet 12.5 mg PO DAILY 03/05/21 12/26/23 sertraline 25 mg tablet 25 mg PO DAILY 01/29/22 12/26/23 valsartan 40 mg tablet 40 mg PO DAILY 11/25/22 12/26/23 clotrimazole-betamethasone 1 1 applic topical BID 2 weeks #45 03/27/23 12/26/23 %-0.05 % topical cream grams insulin glargine U-300 conc 300 50 unit subcut DAILY 06/27/23 12/26/23 unit/mL (3 mL) subcutaneous pen (Toujeo Max U-300 SoloStar) celecoxib 200 mg capsule See Rx Instructions .Route 11/04/23 12/26/23 .COMPLEX #30 caps brimonidine 0.1 % eye drops 1 drp ophthalmic (eye) Q1H WHILE 12/26/23 AWAKE #10 mL timolol 0.5 % eye drops (Betimol) 1 drp ophthalmic (eye) Q1H WHILE 12/26/23 AWAKE #15 mL Previous Rx's ?Medication ?Instructions ?Recorded levonorgestrel 21 mcg/24 hr (up to 1 device intrauterine ONCE #1 08/02/18 8 years) 52 mg intrauterine device device (Mirena) clotrimazole-betamethasone 1 1 applic topical BID 2 weeks #45 03/27/23 %-0.05 % topical cream grams celecoxib 200 mg capsule See Rx Instructions .Route 11/04/23 .COMPLEX #30 caps brimonidine 0.1 % eye drops 1 drp ophthalmic (eye) Q1H WHILE 12/26/23 AWAKE #10 mL timolol 0.5 % eye drops (Betimol) 1 drp ophthalmic (eye) Q1H WHILE 12/26/23 AWAKE #15 mL Allergies Allergy/AdvReac Type Severity Reaction Status Date / Time ranitidine Allergy Mild HIVES Verified 12/26/23 14:24 CATS Allergy RASH/ITCHING/BREATHING Uncoded 12/26/23 14:24 DIFFICULTIES FUMES Allergy BREATHING Uncoded 12/26/23 14:24 DIFFICULTIES PLASTIC Allergy RASH Uncoded 12/26/23 14:24 General GREY: 3 Medical Decision Making Quality:SDOH Health Related Social Needs: No Data to Display PFSH All Active Problems (Updated 12/26/23 @ 16:46 by Jason Fink MD) Elevated IOP (Acute) Vulvar candidiasis (Acute) Arthritis of right glenohumeral joint (Acute) Calcific tendonitis of right shoulder (Acute) DEPO MEDROL 11/29/22; 04/17/23; 07/17/23; 10/16/23 Arthritis of right acromioclavicular joint (Acute) Osteoarthritis of right knee (Acute) DEPO 11/29/22; 04/01/22; 04/17/23; 07/17/23; 10/16/23 Bursitis of right shoulder (Acute) DEPO 04/01/22 Vaginitis and vulvovaginitis (Acute) Discharge planning issues (Acute) DVT prophylaxis (Acute) Pneumonia due to 2019 novel coronavirus (Acute) COVID (Acute) History of endometrial biopsy (Chronic) q6mo. Surveillance of endometrial CA. Sudden-onset sensorineural hearing loss (Acute) Unilateral sensorineural hearing loss (Acute) Neoplasm of unspecified behavior of bone, soft tissue, and skin (Acute) Type 2 diabetes mellitus with complication (Chronic 10/31/17) Sensorineural hearing loss, asymmetrical (Acute 06/27/14) Sensorineural hearing loss, unilateral, right ear, with unrestricted hearing on the contralateral side (Acute 08/07/15) Osteoarthritis (Acute 10/31/17) Impairment of auditory discrimination (Acute 06/27/14) IUD (intrauterine device) in place (Acute 10/31/17) 2012. Mirena initially placed to treat endometrial adenocarcinoma. 07/2014 IUD not in uterus on ultrasound. New Mirena inserted. 2019. Mirena removed and new IUD inserted. 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 Not a surgery candidate. Mirena IUD in place. EMBx q6mo. If pt develops bleeding or adenocarcinoma advances beyond FIGO1 will begin Megace. 06/2013 residual adenocarcinoma FIGO 1. 11/2013 atypical complex hyperplasia. 06/2014 endometrial adenocarcinoma FIGO1. 08/2014 endometrial adenocarcinoma FIGO 1. 04/2015 atypical complex hyperplasia. suspicious for adenocarcinoma. 04/2016 Neg for complex hyperplasia. exogenous hormone effect. 10/2015 Complex hyperplasia with atypia. Pt did not return to [facility] until 2017. I began caring for her at that time. 10/2017 Inactive endometrium with progesterone effect. Neg for complex hyperplasia or malignancy. 05/2018 atypical complex hyperplasia. ? focal finding of adenocarcinoma. 03/2019. Focal atypical muncinous epithelium. Acquired hypothyroidism (Acute 10/31/17) Gastroesophageal reflux disease (Chronic) Hypothyroidism (Chronic) Hyperlipidemia (Chronic) Coronary arteriosclerosis (Chronic) Benign hypertension (Chronic) Morbid obesity (Chronic) 05/2018 BMI 52 Diabetes mellitus, type 2 (Chronic) Obstructive sleep apnea syndrome (Chronic) Chronic osteoarthritis (Chronic) Medical History (Updated 12/26/23 @ 16:46 by Jason Fink MD) Adenocarcinoma of endometrium Grade 1 diagnosed 2012. No surgery secondary to patient's comorbidities. Mirena IUD inserted 2013 patient has in which her biopsies every 6 months. Adenocarcinoma remains present grade 1 MELONY (obstructive sleep apnea) (10/31/17) severe untreated MELONY noteably crowded aiway. Anesthesia to monitor closely- per PCP H&P Surgical History (Updated 12/26/23 @ 08:08 by Jason Fink MD) Hx of shoulder surgery left History of carpal tunnel release of both wrists History of hemicolectomy History of arthroplasty of left knee Family History Mother Hypertensive disorder, systemic arterial Father Acute poliomyelitis Brother Hypertensive disorder, systemic arterial Diabetes Brother Diabetes Personal history of malignant neoplasm Social History Smoking/Tobacco Use Status: Never Smoking risk assessment performed?: Yes Alcohol Intake: never Drug use: Never Substance use type: does not use Housing: house Number of Children: 1 current occupation: Not working secondary to disabilities Seatbelt use: always Do you feel safe at home: Yes Do you feel safe in your relationship?: Yes History History 1 Para Hx # Term Pregnancies Multiple births Hx # Pregnancies Ectopic pregnancies AB induced Hx Number of Living Children 1 AB spontaneous
[2023-12-26] MEDS: Acetaminophen 500 MG TAB 1000 MG PO (15:21)
[2023-12-26] MEDS: Ondansetron O.D.T. 4 MG TABEF PO (15:23)
[2023-12-26] MEDS: Tetracaine 0.5% 4 ML BTL 5 ML OP (15:24)
[2023-12-26] MEDS: acetaZOLAMIDE 250 MG TAB 500 MG PO ×2 (17:09→17:10)
[2023-12-26] MEDS: Timolol 0.5% 5 ML BTL OD (17:10)
[2023-12-26 17:24] VITALS: TEMP 36.2
[2023-12-26] MEDS: Ibuprofen 600 MG TAB PO (17:35)
[2023-12-26 17:36] VITALS: BP 141/84; PULSE 82; RESP 20; O2SAT 95
== END 2023-12-26 17:37 | disposition home or self-care (01) ==
PROVIDERS: Emergency Provider Emergency Medicine; PCP Nurse Practitioner Family
DX: R51.9 Headache, unspecified (principal); R11.2 Nausea with vomiting, unspecified; H40.052 Ocular hypertension, left eye; Z98.42 Cataract extraction status, left eye
CPT/HCPCS: 00123; 96374; 99284; V2632; 99283; J1120; J2003

== ENCOUNTER 2024-01-09 15:51 | Outpatient (REF) | payer MEDICARE, MEDICAID, SELFPAY ==
--- NOTE | 2024-01-09 15:45 | ENDOMET_PTH ---
PATIENT: Jacki Jimenez LOC: [facility] U#:[id number] AGE/SX: 68/F ROOM: RE01/09/[address]: Kourtney Aguilar : 1955 BED: DIS: 01/09/2024 SPEC #: [id number] RECD: 01/12/24 12:55 STATUS: RU REQ #: [id number] CHONG: 01/09/24 15:[address]: Kourtney Aguilar DEPT: Surgical Specimen RECD BY: Selnia Mendoza ENTERED: 01/12/24 12:55 SP TYPE: Endomet OTHR DR: ALEXIS CHAPIN, RAMESH Tissues: 1 - ENDOMETRIUM BX/CURRETTE Procedures: GROSS AND MICRO LEVEL 4 Comments: [id number]
== END 2024-01-09 15:52 | disposition home or self-care (01) ==
LOC: LBN 15:51
PROVIDERS: PCP Nurse Practitioner Family; Visit Provider Obstetrics & Gynecology Gynecology
DX: N76.0 Acute vaginitis (principal); Z97.5 Presence of (intrauterine) contraceptive device; C54.1 Malignant neoplasm of endometrium
CPT/HCPCS: 88305

== ENCOUNTER → 2024-01-15 09:58 | Outpatient (BNVA) | payer MEDICARE, MEDICAID, SELFPAY | PROVIDERS: PCP Nurse Practitioner Family; Referring Provider Nurse Practitioner Family; Visit Provider Student in an Organized Health Care Education/Training Program | DX: M17.11 Unilateral primary osteoarthritis, right knee (principal); E11.9 Type 2 diabetes mellitus without complications; E66.9 Obesity, unspecified | CPT/HCPCS: 20610; J1010 ==

== ENCOUNTER 2024-02-20 06:35 | Day surgery (SDC) | payer MEDICARE, MEDICAID, SELFPAY ==
--- NOTE | 2024-02-19 20:11 | HPE_ITS ---
Assessment and Plan Assessment and plan (1) Nuclear age-related cataract, right eye: Status: Chronic Assessment and plan: Assessment: Visually significant cataract right eye. Plan: Cataract extraction with intraocular lens implantation right eye (2) Cortical age-related cataract, right eye: Status: Chronic Assessment and plan: Assessment: Visually significant cataract right eye. Plan: Cataract extraction with intraocular lens implantation right eye History of Present Illness History of Present Illness Chief Complaint: Progressive decreased vision right eye Narrative: The patient is a 68-year-old lady who originally presented with complaints of progressive decreased vision in both eyes at both distance and near. She notes significant difficulty reading and also has difficulty with depth perception. She has a history of myopia and is worn glasses since sixth grade which she takes off to read. On examination she was noted to have moderate bilateral cataracts. She underwent cataract surgery in the left eye on 12/26/2023. She is doing well postoperatively, but now presents for cataract surgery in the right eye. Postoperative refractive target is -2.50 diopters so she can continue to read without glasses. Review of Systems All systems reviewed & are unremarkable except as noted in HPI and below PFSH All Active Problems Cortical age-related cataract, right eye (Chronic) Nuclear age-related cataract, right eye (Chronic) Arthritis of right glenohumeral joint (Acute) Calcific tendonitis of right shoulder (Acute) DEPO MEDROL 11/29/22; 04/17/23; 07/17/23; 10/16/23 Arthritis of right acromioclavicular joint (Acute) Osteoarthritis of right knee (Acute) DEPO 11/29/22; 04/01/22; 04/17/23; 07/17/23; 10/16/23; 01/15/24 Bursitis of right shoulder (Acute) DEPO 04/01/22 Discharge planning issues (Acute) DVT prophylaxis (Acute) Pneumonia due to 2019 novel coronavirus (Acute) COVID (Acute) History of endometrial biopsy (Chronic) 2012. q6mo Surveillance of endometrial CA 01/2024. Interval for EMBx changed to yearly. Sudden-onset sensorineural hearing loss (Acute) Unilateral sensorineural hearing loss (Acute) Neoplasm of unspecified behavior of bone, soft tissue, and skin (Acute) Type 2 diabetes mellitus with complication (Chronic 10/31/17) Sensorineural hearing loss, asymmetrical (Acute 06/27/14) Sensorineural hearing loss, unilateral, right ear, with unrestricted hearing on the contralateral side (Acute 08/07/15) Osteoarthritis (Acute 10/31/17) Impairment of auditory discrimination (Acute 06/27/14) IUD (intrauterine device) in place (Acute 10/31/17) 2012. Mirena initially placed to treat endometrial adenocarcinoma. 07/2014 IUD not in uterus on ultrasound. New Mirena inserted. 2019. Mirena removed and new IUD inserted. 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 Not a surgery candidate. Mirena IUD in place. EMBx q6mo. If pt develops bleeding or adenocarcinoma advances beyond FIGO1 will begin Megace. 06/2013 residual adenocarcinoma FIGO 1. 11/2013 atypical complex hyperplasia. 06/2014 endometrial adenocarcinoma FIGO1. 08/2014 endometrial adenocarcinoma FIGO 1. 04/2015 atypical complex hyperplasia. suspicious for adenocarcinoma. 04/2016 Neg for complex hyperplasia. exogenous hormone effect. 10/2015 Complex hyperplasia with atypia. Pt did not return to [facility] until 2018. I began caring for her at that time. 10/2017 Inactive endometrium with progesterone effect. Neg for complex hyperplasia or malignancy. 05/2018 atypical complex hyperplasia. ? focal finding of adenocarcinoma. 03/2019. Focal atypical muncinous epithelium. Subsequent EMBx w/o dysplasia. Acquired hypothyroidism (Acute 10/31/17) Gastroesophageal reflux disease (Chronic) Hypothyroidism (Chronic) Hyperlipidemia (Chronic) Coronary arteriosclerosis (Chronic) Benign hypertension (Chronic) Morbid obesity (Chronic) 05/2018 BMI 52 Diabetes mellitus, type 2 (Chronic) Obstructive sleep apnea syndrome (Chronic) Chronic osteoarthritis (Chronic) Medical History Vulvar candidiasis Vaginitis and vulvovaginitis Adenocarcinoma of endometrium Grade 1 diagnosed 2012. No surgery secondary to patient's comorbidities. Mirena IUD inserted 2012 patient has in which her biopsies every 6 months. Adenocarcinoma remains present grade 1 MELONY (obstructive sleep apnea) (10/31/17) severe untreated MELONY noteably crowded aiway. Anesthesia to monitor closely- per PCP H&P Surgical History Hx of shoulder surgery left History of carpal tunnel release of both wrists History of hemicolectomy History of arthroplasty of left knee Family History Mother Hypertensive disorder, systemic arterial Father Acute poliomyelitis Brother Hypertensive disorder, systemic arterial Diabetes Brother Diabetes Personal history of malignant neoplasm Social History Smoking/Tobacco Use Status: Never Smoking risk assessment performed?: Yes Alcohol Intake: never Drug use: Never Substance use type: does not use Housing: house Number of Children: 1 current occupation: Not working secondary to disabilities Seatbelt use: always Do you feel safe at home: Yes Do you feel safe in your relationship?: Yes History History 1 Para Hx # Term Pregnancies Multiple births Hx # Pregnancies Ectopic pregnancies AB induced Hx Number of Living Children 1 AB spontaneous Meds Allergies and Home Medications Allergies Allergy/AdvReac Type Severity Reaction Status Date / Time ranitidine Allergy Mild HIVES Verified 02/17/24 15:51 CATS Allergy RASH/ITCHING/BREATHING Uncoded 02/17/24 15:51 DIFFICULTIES FUMES Allergy BREATHING Uncoded 02/17/24 15:51 DIFFICULTIES PLASTIC Allergy RASH Uncoded 02/17/24 15:51 Home Medications ?Medication ?Instructions ?Recorded ?Confirmed ?Type Advil 200 mg PO Q6H PRN 10/13/12 02/17/24 History aspirin 81 mg tablet,delayed 81 mg PO DAILY 10/13/12 02/17/24 History release (Aspir-) atenolol 100 mg tablet 100 mg PO HS 10/13/12 02/17/24 History simvastatin 20 mg tablet 20 mg PO DAILY 10/13/12 02/17/24 History levothyroxine 25 mcg tablet 25 mcg PO HS 12/07/12 02/17/24 History (Synthroid) albuterol sulfate 90 mcg/actuation 2 puff inhalation Q6H PRN ##2 11/22/13 02/17/24 History aerosol inhaler (ProAir HFA) loratadine 10 mg tablet 10 mg PO DAILY 09/14/14 02/17/24 History cholecalciferol (vitamin D3) 50 2,000 unit PO DAILY 04/10/16 02/17/24 History mcg (2,000 unit) capsule (Vitamin D3) amlodipine 5 mg tablet 5 mg PO HS 07/30/18 02/17/24 History levonorgestrel 21 mcg/24 hr (up to 1 device intrauterine ONCE #1 08/02/18 02/17/24 Rx 8 years) 52 mg intrauterine device device (Mirena) exenatide microspheres 2 mg 2 mg subcut DIRECTED 03/08/19 02/17/24 History subcutaneous extended release suspension hydrochlorothiazide 12.5 mg tablet 12.5 mg PO DAILY 03/05/21 02/17/24 History sertraline 25 mg tablet 25 mg PO HS 01/29/22 02/17/24 History valsartan 40 mg tablet 40 mg PO DAILY 11/25/22 02/17/24 History clotrimazole-betamethasone 1 1 applic topical BID 2 weeks #45 03/27/23 02/17/24 Rx %-0.05 % topical cream grams insulin glargine U-300 conc 300 50 unit subcut DAILY 06/27/23 02/17/24 History unit/mL (3 mL) subcutaneous pen (Toujeo Max U-300 SoloStar) celecoxib 200 mg capsule See Rx Instructions .Route 11/04/23 02/17/24 Rx .COMPLEX #30 caps Exam Eyes Other: Most recent ocular examination is significant for corrected visual acuity of 20/40 in each eye. Extraocular Alta is normal. Intraocular pressure is 27 OD, 26 OS. Slit-lamp examination shows moderate nuclear/cortical/posterior subcapsular cataracts in both eyes. Disc cupping of 0.4 OU with normal vessels. Drusen are present in both maculas. Otherwise, the peripheral retina and vitreous are normal. Resp Auscultation: clear to auscultation bilaterally Cardio Rate: regular rate Rhythm: regular rhythm
[2024-02-20] MEDS: Tropicam./Phenyleph. (1/2.5%) 5 ML BTL OD ×3 (07:12→07:23)
[2024-02-20 07:14] VITALS: BP 120/76; PULSE 77; RESP 16; TEMP 37; O2SAT 95
--- NOTE | 2024-02-20 07:50 | ANES.PREOP_ITS ---
General Info Date of Service Date Performed: 02/20/24 Height: 5 ft 1 in Weight: 121.3 kg Body Mass Index (BMI): 50.5 Surgical Procedure: Operation Date: 02/20/24 08:25 Proposed Procedure Side Surgeon p Cataract Extraction with IOL Implant Right Jason Fink MD Meds Allergies and Home Medications Allergies Allergy/AdvReac Type Severity Reaction Status Date / Time ranitidine Allergy Mild HIVES Verified 02/20/24 07:01 CATS Allergy RASH/ITCHING/BREATHING Uncoded 02/20/24 07:01 DIFFICULTIES FUMES Allergy BREATHING Uncoded 02/20/24 07:01 DIFFICULTIES PLASTIC Allergy RASH Uncoded 02/20/24 07:01 Home Medication ?Medication ?Instructions ?Recorded Advil 200 mg PO Q6H PRN 10/13/12 aspirin 81 mg tablet,delayed 81 mg PO DAILY 10/13/12 release (Aspir-) atenolol 100 mg tablet 100 mg PO HS 10/13/12 simvastatin 20 mg tablet 20 mg PO DAILY 10/13/12 levothyroxine 25 mcg tablet 25 mcg PO HS 12/07/12 (Synthroid) albuterol sulfate 90 mcg/actuation 2 puff inhalation Q6H PRN ##2 11/22/13 aerosol inhaler (ProAir HFA) loratadine 10 mg tablet 10 mg PO DAILY 09/14/14 cholecalciferol (vitamin D3) 50 2,000 unit PO DAILY 04/10/16 mcg (2,000 unit) capsule (Vitamin D3) amlodipine 5 mg tablet 5 mg PO HS 07/30/18 levonorgestrel 21 mcg/24 hr (up to 1 device intrauterine ONCE #1 08/02/18 8 years) 52 mg intrauterine device device (Mirena) exenatide microspheres 2 mg 2 mg subcut DIRECTED 03/08/19 subcutaneous extended release suspension hydrochlorothiazide 12.5 mg tablet 12.5 mg PO DAILY 03/05/21 sertraline 25 mg tablet 25 mg PO HS 01/29/22 valsartan 40 mg tablet 40 mg PO DAILY 11/25/22 clotrimazole-betamethasone 1 1 applic topical BID 2 weeks #45 03/27/23 %-0.05 % topical cream grams insulin glargine U-300 conc 300 50 unit subcut DAILY 06/27/23 unit/mL (3 mL) subcutaneous pen (Toujeo Max U-300 SoloStar) celecoxib 200 mg capsule See Rx Instructions .Route 11/04/23 .COMPLEX #30 caps Current Visit Medications: Current Medications Generic Name Dose Route Start Last Admin Trade Name Freq PRN Reason Stop Dose Admin Acetaminophen 1,000 mg 02/20/24 06:00 Acetaminophen 500 Mg Tab PO 03/21/24 05:59 Q4H PRN PRN Balanced Salt Solution 500 ml 02/20/24 06:00 Balanced Salt Soln.-Plus 500 Ml Bag OP 03/21/24 05:59 DIRECTED KERMIT Miscellaneous Medication 0 ml 02/20/24 06:00 Prednisolone 1%, Moxifloxacin 0.5%, Bromfenac 0.09% 5.6ml Btl OD 03/21/24 05:59 DIRECTED KERMIT Miscellaneous Medication 0 ml 02/20/24 06:00 02/20/24 07:23 Tropicam./Phenyleph. (1/2.5%) 5 Ml Btl OD 03/21/24 05:59 1 drp DIRECTED KERMIT Administration Tetracaine HCl 0 ml 02/20/24 06:00 Tetracaine 0.5% 4 Ml Btl OD 03/21/24 05:59 DIRECTED KERMIT PFSH Active Problems Active Problems: Problem Status Onset Code Cortical age-related cataract, right eye Chronic H25.011 Nuclear age-related cataract, right eye Chronic H25.11 Posterior subcapsular age-related cataract of left eye Resolved H25.042 Cortical age-related cataract, left eye Resolved H25.012 Nuclear age-related cataract, left eye Resolved H25.12 Arthritis of right glenohumeral joint Acute M19.011 Calcific tendonitis of right shoulder Acute M75.31 Arthritis of right acromioclavicular joint Acute M19.011 Osteoarthritis of right knee Acute M17.11 Bursitis of right shoulder Acute M75.51 Discharge planning issues Acute Z02.9 DVT prophylaxis Acute Z29.9 Hypomagnesemia Resolved E83.42 Hypokalemia Resolved E87.6 Pneumonia due to 2019 novel coronavirus Acute U07.1, J12.82 COVID Acute U07.1 History of endometrial biopsy Chronic Z92.89 Sudden-onset sensorineural hearing loss Acute H91.20 Unilateral sensorineural hearing loss Acute H90.5 Neoplasm of unspecified behavior of bone, soft tissue, and skin Acute D49.2 Type 2 diabetes mellitus with complication Chronic 10/31/17 E11.8 Sensorineural hearing loss, asymmetrical Acute 06/27/14 H90.5 Sensorineural hearing loss, unilateral, right ear, with unrestricted hearing on the contralateral side Acute 08/07/15 H90.41 Osteoarthritis Acute 10/31/17 M19.90 Impairment of auditory discrimination Acute 06/27/14 H93.299 IUD (intrauterine device) in place Acute 10/31/17 Z97.5 Hyperlipidemia associated with type 2 diabetes mellitus Acute 10/31/17 E11.69, E78.5 Gastroesophageal reflux disease without esophagitis Acute 10/31/17 K21.9 Essential hypertension Acute 10/31/17 I10 Depression Acute 10/31/17 F32.9 Coronary arteriosclerosis Acute 10/31/17 I25.10 BMI 50.0-59.9, adult Acute 10/31/17 Z68.43 Adenocarcinoma of endometrium Acute 12/07/12 C54.1 Acquired hypothyroidism Acute 10/31/17 E03.9 Replacement of total knee joint Resolved Open Carpal Tunnel release Resolved Hemicolectomy Resolved ~2003 Gastroesophageal reflux disease Chronic Hypothyroidism Chronic Hyperlipidemia Chronic Coronary arteriosclerosis Chronic Benign hypertension Chronic Morbid obesity Chronic Diabetes mellitus, type 2 Chronic Obstructive sleep apnea syndrome Chronic Chronic osteoarthritis Chronic Medical History Medical History Vulvar candidiasis Vaginitis and vulvovaginitis Adenocarcinoma of endometrium Grade 1 diagnosed 2012. No surgery secondary to patient's comorbidities. Mirena IUD inserted 2013 patient has in which her biopsies every 6 months. Adenocarcinoma remains present grade 1 MELONY (obstructive sleep apnea) (10/31/17) severe untreated MELONY noteably crowded aiway. Anesthesia to monitor closely- per PCP H&P Medical History Comments:: pt. reports hard time waking up once Surgical History Surgical History History of left cataract surgery Hx of shoulder surgery left History of carpal tunnel release of both wrists History of hemicolectomy History of arthroplasty of left knee Tobacco Smoking/Tobacco Use Status: Never Alcohol Alcohol Intake: never Substance Use Substance use: Never Substance use type: does not use Prental History History 1 Para Hx # Term Pregnancies Multiple births Hx # Pregnancies Ectopic pregnancies AB induced Hx Number of Living Children 1 AB spontaneous Vital Signs and Lab Results Vital Signs Most Recent Vital Signs in EMR: Most Recent Vital Signs Temp Pulse Resp BP Pulse Ox 37.0 C 77 16 120/76 95 02/20/24 07:14 02/20/24 07:14 02/20/24 07:14 02/20/24 07:14 02/20/24 07:14 Point of Care Results Point of Care Results: Finger Stick Blood Glucose 138 02/20/24 07:04 Lab Results Blood Type / Crossmatch: No Data to Display Complete Blood Count: No Data to Display Complete Metabolic Panel: No Data to Display Liver Function Panel: No Data to Display Coagulation Panel: No Data to Display Cardiac Panel: No Data to Display Arterial Blood Gas: No Data to Display Venous Blood Gas: No Data to Display Pancreas Panel: No Data to Display Thyroid Panel: No Data to Display Infectious Disease: No Data to Display Blood Cultures: No Data to Display Toxicology Panel: No Data to Display Imaging and Studies Imaging and Studies Study information below may be from another EMR and interpreted by another provider. Please see original notes in EMR for more complete details. EKG Summary: DATE/TIME OF SERVICE: 03/04/212058 : 1955 PERFORMING LOCATION: [place] APPROVED REPORT Exam: Resting ECG Reason for Exam: SOB COVID Patient Location: E HR:74 bpm ECG Measurements Heart Rate 74 AXIS CA 176 P 61 QRSd 151 QRS -17 QT 475 T2 QTc 528 Conclusion Sinus rhythm...normal P axis, V-rate 60- 99 Right bundle branch block...QRSd>120, terminal axis(90,270) Probable left ventricular hypertrophy...(RaVL+SV3)xQRSd >300 Physician: No stemi, RBBB, unchanged from 2005 Stress Test Summary: Date of study: 11/23/2018 *PATIENT PRESENTATION* Height: 154.9cm (61in) Blood Pressure: Weight: 126.8kg (279lb) BSA: 2.42m^2 Referring physician: Scott Levin MD Ordering physician: Cherelle Boyce Impressions: Normal perfusion by [id number] Sestamibi Imaging. Summary: 1. Myocardial perfusion imaging: No myocardial perfusion defects noted. 2. The calculated left ventricular ejection fraction after stress: 72%. Pulmonary Function Summary: DATE OF SERVICE November 25, 2018 REQUESTING PROVIDER Cherelle Boyce NP INTERPRETATION OF STUDY Spirometry shows no evidence of obstructive airways disease. No bronchodilator response. LUNG VOLUMES - Lung volumes show no evidence of restriction. DIFFUSION CAPACITY- Normal. AIRWAY RESISTANCE - Normal. IMPRESSION Overall normal pulmonary function study. Clinical correlation recommended. Anesthesia Assessment and Plan Anesthesia History Personal History: No History of Anesthesia Complications Family History: No Family History of Anesthesia Complications Exercise Tolerance Exercise Tolerance: Metabolic Equivalents>4 Cardiac & Pulmonary Exam Cardiac Exam: Normal S1/S2 Heart Sounds Pulmonary Exam: Clear Bilateral Breath Sounds Implantable Cardiac Device Does patient have a Pacemaker or an ICD?: No Airway Exam Known Difficult Airway: No Mallampati Class: 2 Mouth Opening: Normal (> 3cm) Thyromental Distance: Less than 3 cm Neck Range of Motion: Full ROM Neck Circumference: Thick Teeth Condition: Normal Dentition ASA Classification ASA Score: ASA 3 Emergency Case?: No NPO Status NPO Status: NPO Clears >2 hours, Solids >8 hours Anesthesia Plan Resuscitation Status: Full Code Anesthesia Technique: MAC Anesthesia Airway Planned: Natural Airway Monitors Used: Standard Monitors
[2024-02-20 08:17] VITALS: BMI 50.5
[2024-02-20] MEDS: Tetracaine 0.5% 4 ML BTL OD (08:22)
[2024-02-20] MEDS: Prednisolone 1%, Moxifloxacin 0.5%, Bromfenac 0.09% 5.6ML BTL OD (08:23)
[2024-02-20] MEDS: Lidocaine 1% Pres-Free 5 ML VIAL (08:24)
[2024-02-20] MEDS: Povidone-Iodine Ophth 30 ML BTL (08:26)
[2024-02-20] MEDS: Balanced Salt Soln.-PLUS 500 ML BAG OP (08:28)
[2024-02-20 08:47] VITALS: BP 145/82; PULSE 74; RESP 16; TEMP 36.2; O2SAT 97
--- NOTE | 2024-02-20 08:47 | W.PM.DSUDISC ---
Date of service: 02/20/24 Time of Service: 08:47 Discharge Plan Disposition Patient Disposition: Home Discharge Details Attending Provider: Jason Fink Primary Care Provider: ALEXIS CHAPIN Home Meds and New Rx's Prescriptions: No Action insulin glargine U-300 conc [Toujeo Max U-300 SoloStar] 300 unit/mL (3 mL) insulin pen 50 unit subcut DAILY Patient Comments: pt. took 38 units amlodipine 5 mg tablet 5 mg PO HS Mirena 20 mcg/24 hr (5 years) intrauterine device 1 device Intrauterine ONCE Qty: 1 0RF exenatide microspheres 2 mg suspension,extended rel recon 2 mg SC DIRECTED valsartan 40 mg tablet 40 mg PO DAILY ADVIL 200 MG capsule 200 mg PO Q6H PRN atenolol 100 MG tablet 100 mg PO HS aspirin [Aspir-81] 81 MG tablet,delayed release (DR/EC) 81 mg PO DAILY simvastatin 20 MG tablet 20 mg PO DAILY levothyroxine [Synthroid] 25 MCG tablet 25 mcg PO HS albuterol sulfate [ProAir HFA] 8.5 GM HFA aerosol inhaler 2 puff Inhalation Q6H PRN Qty: 2 Patient Comments: 09/14/14 Pt states she has not used in months. PG cholecalciferol (vitamin D3) [Vitamin D3] 2,000 UNIT capsule 2,000 unit PO DAILY sertraline 25 mg tablet 25 mg PO HS clotrimazole-betamethasone 1-0.05 % cream 1 applic topical BID 14 Days Qty: 45 4RF celecoxib 200 mg capsule See Rx Instructions .ROUTE .COMPLEX Qty: 30 3RF Dose Instruction: TAKE 1 CAPSULE BY MOUTH TWICE DAILY NEEDED FOR PAIN Rx Instructions: TAKE 1 CAPSULE BY MOUTH TWICE DAILY NEEDED FOR PAIN loratadine 10 MG tablet 10 mg PO DAILY hydrochlorothiazide 12.5 mg tablet 12.5 mg PO DAILY Discharge Instructions Stand Alone Forms: [facility] Post-Op [facility] (DSU) Discharge Orders Discharge Orders: Discharge Order (Routine); Ordered 02/20/24 Ordered By: Jason Fink DS: Diagnosis Discharge Diagnosis (1) Nuclear age-related cataract, right eye: Status: Resolved (2) Cortical age-related cataract, right eye: Status: Resolved
--- NOTE | 2024-02-20 08:48 | ROE_ITS ---
Date of service: 02/20/24 Time of Service: 08:48 Operative Note Operative Note DATE OF PROCEDURE: 02/20/24 PRE-OP DIAGNOSIS: Nuclear/cortical cataract, right eye POST-OP DIAGNOSIS: same PROCEDURE: Cataract extraction using phacoemulsification with intraocular lens implant, right eye SURGEON: Jason Fink ANESTHESIA TYPE: Local By Surgeon and MAC Refer to Anesthesia Record ESTIMATED BLOOD LOSS: 0 PATHOLOGY: none sent COMPLICATIONS: None Patient was transported to: same day Patient's condition: stable Implants: Duke & Duke Tecnis Eyhance [id number] Indications: Progressive visual loss due to cataract, right eye Procedure Description: CATARACT SURGERY OPERATIVE REPORT PREOPERATIVE DIAGNOSIS: 1. Nuclear/cortical cataract, right eye POSTOPERATIVE DIAGNOSIS: Same OPERATION: 1. Cataract extraction using phacoemulsification with posterior chamber intraocular lens implant, right eye. IOL: IOL Database Administration Manager/Model: Duke & Duke Tecnis Eyhance DIB00 IOL Power: + 18.5 diopters IOL Serial Number: [id number] Optic Diameter: 6.0mm Haptic/Overall Diameter: 13.0mm PHACO INFO: Jagdish Immunetricsurion Vision System with OZil and Active Fluidics Cumulative Dispersed Energy (CDE): 5.82 seconds SURGEON: Jason Fink MD, BRIAN ANESTHESIA: Monitored Anesthesia Care (MAC), with local sub-tenon's anesthetic infiltration COMPLICATIONS: None SPECIMENS: None INDICATIONS FOR PROCEDURE: The patient is a 69-year-old lady with history of myopia who has developed symptomatic bilateral nuclear/cortical cataract. She is significantly symptomatic that she desired cataract surgery and attempt to improve and maximize her vision. She has already undergone cataract surgery in the left eye with postoperative refractive target of -2.50. Of note, she had elevated intraocular pressures postoperatively, which required intensive oral and topical therapy. She now presents for cataract surgery in the right eye, with postoperative refractive target of -2.50. PROCEDURE: The correct surgical eye was identified and marked as the right eye and the pupil was dilated in the preoperative area using mydriatics and cycloplegics. The dilated pupil size was 8.0 mm. The patient elected to proceed without oral sedation. The patient was brought to the operating room where cardiopulmonary monitoring was instituted and surgical time-out was performed, confirming the correct operative eye and IOL power. Topical anesthesia was administered and ophthalmic povidone-iodine 5% was instilled into the conjunctival fornices. The cecilia-ocular area was prepped with Betadine 10% solution and draped in the usual sterile fashion for intraocular surgery, including an aperture drape. A Tegaderm transparent film dressing was cut in half and used to cover the lashes and lid margins. Care was taken to sequester the lashes and lid margins under the Tegaderm dressing. A lid speculum was placed between the lids of the operative eye and the Jagdish LuxOR Revalia operating microscope was maneuvered into position. Mercedez scissors were then used to make a conjunctival buttonhole approximately 6mm posterior to the limbus in the inferonasal quadrant. Blunt dissection was carried out to expose bare sclera, and a blunt-tipped sub-tenon?s anesthesia cannula was introduced and passed posteriorly along the globe where non- preserved plain lidocaine was injected into posterior sub-Tenon?s space. A sideport knife was used to make a paracentesis port. Intraocular phenylephrine/lidocaine was injected into the anterior chamber. The anterior chamber was filled with viscoelastic. Healon pro was used to avoid any retained dispersive viscoelastic. A keratome knife was used to construct a 2- plane clear corneal tunnel extending 2.0mm into clear cornea. A flap was raised on the anterior capsule and capsulorhexis forceps were used to complete a continuous curvilinear capsulorhexis of 5.0 mm. Balanced salt solution was then used to perform cortical cleaving hydrodissection and nuclear hydrodelineation until the lens could be freely rotated within the capsular bag. The lens nucleus was then disassembled and removed within the capsular bag and iris plane using phacoemulsification. Residual cortical material was removed using the I/A handpiece. The posterior capsule was carefully polished to remove as much residual lens epithelial cells as safely possible. The capsular bag was then inflated and the anterior chamber deepened with cohesive viscoelastic. The lens implant described above was inserted into the capsular bag using the Duke and Prema Simplicity pre- loaded injector. A Kuglen hook was used to dial the IOL into position. Residual viscoelastic was then removed first from posterior to the IOL, then from the anterior chamber using the I/A handpiece. The lens implant was noted to center nicely within the capsular bag. The incisions were stromally hydrated, and the anterior chamber was reformed using BSS. Miostat was then injected into the anterior chamber for postoperative pressure control. The pupil was noted to come down around. Then 0.5cc of moxifloxacin 1.0mg/ml were injected into the capsular bag and anterior chamber. The incisions were checked with a Weck spear and found to be secure. Several drops of ophthalmic povidone-iodine 5% were then applied to the eye followed by two drops ocombination steroid/NSAID/antibiotic solution. The drapes were removed and a clear plastic protective eye shield was placed over the eye. The patient was then returned to Same Day Surgery in stable condition.
--- NOTE | 2024-02-20 08:52 | W.ANESPOSTOP ---
Postoperative Evaluation Date, Time and Location Date Performed: 02/20/24 Time Performed: 08:50 Patient Location: Day Surgery Unit Vital Signs Most Recent Imported Vital Signs: Most Recent Vital Signs Temp Pulse Resp BP Pulse Ox 36.2 C L 74 16 145/82 H 97 02/20/24 08:47 02/20/24 08:47 02/20/24 08:47 02/20/24 08:47 02/20/24 08:47 Pain Score Most Recent Pain Score: Most Recent Pain Score Pain Level 0 02/20/24 08:47 Assessment Mental Status: Awake (Alert & Oriented to Patient Baseline) Airway and Respiratory Function: Patent airway with normal (patient baseline) respiratory exam Cardiovascular Function: Hemodynamically Stable Hydration Status: Adequately Hydrated Nausea & Vomiting: No Nausea or Vomiting Pain: Pt. Denies Any Pain Peripheral Nerve Block: Patient did not receive a nerve block
== END 2024-02-20 09:04 | disposition home or self-care (01) ==
LOC: SUR 06:35
PROVIDERS: PCP Nurse Practitioner Family; Visit Provider Ophthalmology
PROC: (CPT 66984; principal; 2024-02-20 08:15)
DX: H25.11 Age-related nuclear cataract, right eye (principal); H25.011 Cortical age-related cataract, right eye; Z98.42 Cataract extraction status, left eye
CPT/HCPCS: 66984; 00123; V2632; J2003

== ENCOUNTER → 2024-04-15 13:00 | Outpatient (BNVA) | payer MEDICARE, MEDICAID, SELFPAY | PROVIDERS: PCP Nurse Practitioner Family; Referring Provider Nurse Practitioner Family | DX: M75.31 Calcific tendinitis of right shoulder (principal); M17.11 Unilateral primary osteoarthritis, right knee | CPT/HCPCS: 20610; J1010 ==

== ENCOUNTER → 2024-08-02 11:06 | Outpatient (BNVA) | payer MEDICARE, MEDICAID, SELFPAY | PROVIDERS: PCP Nurse Practitioner Family; Referring Provider Nurse Practitioner Family; Visit Provider Student in an Organized Health Care Education/Training Program | DX: M17.11 Unilateral primary osteoarthritis, right knee (principal) | CPT/HCPCS: 99214 ==

== ENCOUNTER 2024-08-18 18:01 | Outpatient (REF) | payer MEDICARE, MEDICAID, SELFPAY ==
--- NOTE | 2024-08-18 14:40 | ENDOMET_PTH ---
PATIENT: Jacki Jimenez LOC: [facility] U#:[id number] AGE/SX: 69/F ROOM: RE08/18/[address]: Berta De La Cruz MD : 1955 BED: DIS: 08/18/2024 SPEC #: [id number] RECD: 08/18/24 18:14 STATUS: RU REQ #: [id number] CHONG: 08/18/24 14:[address]: Berta De La Cruz DEPT: Surgical Specimen RECD BY: Selina Mendoza ENTERED: 08/18/24 18:14 SP TYPE: Endomet OTHR DR: ALEXIS CHAPIN, RAMESH Tissues: 1 - ENDOMETRIUM BX/HEIDI Procedures: GROSS AND MICRO LEVEL 4 Comments: [id number]
== END 2024-08-18 18:02 | disposition home or self-care (01) ==
LOC: LBN 18:01
PROVIDERS: PCP Nurse Practitioner Family; Visit Provider Obstetrics & Gynecology
DX: N85.8 Other specified noninflammatory disorders of uterus (principal); C54.1 Malignant neoplasm of endometrium; Z97.5 Presence of (intrauterine) contraceptive device
CPT/HCPCS: 88305

== ENCOUNTER 2024-10-22 17:23 | Outpatient (REF) | payer MEDICARE, MEDICAID, SELFPAY ==
[2024-10-22 16:24] LABS: HCT 47.1 % (36.0-46.0); HGB 15.2 g/dL (11.2-15.7); MCH 28.1 pg (27.0-33.0); MCHC 32.3 % (32.0-36.0); MCV 87 fL (80-95); MPV 11.1 fL (8.0-11.0); Platelet Count 194 10^3/uL (130-400); RDW 15.4 % (11.7-14.6); RDW-SD 49.3 fL; WBC 8.65 10^3/uL (4.4-10.8)
[2024-10-22 16:44] LABS: ALT 24 U/L (14-59); AST 22 U/L (15-37); Albumin 3.6 g/dL (3.4-5.0); Alkaline Phosphatase 72 U/L (46-116); BUN 24 mg/dL (7-18); Bilirubin, Total 0.5 mg/dL (0.2-1.0); CREATININE 1.2 mg/dL (0.55-1.02); Calcium 9.6 mg/dL (8.5-10.1); Chloride 104 mmol/L (98-107); Estimated GFR 48.39 (mL/min/1.73m2); Glucose 143 mg/dL (74-106); Potassium 3.9 mmol/L (3.5-5.1); Sodium 143 mmol/L (136-145); TSH (W/Ref FT4) 3.21 uIU/mL (0.36-3.74)
== END 2024-10-22 17:24 | disposition home or self-care (01) ==
LOC: NCHCN 17:23
PROVIDERS: PCP Nurse Practitioner Family; Visit Provider Nurse Practitioner Family
DX: Z01.818 Encounter for other preprocedural examination (principal)
CPT/HCPCS: 80053; 85027; 84443

== ENCOUNTER 2024-11-11 13:19 | Outpatient (CLI) | payer MEDICARE, MEDICAID, SELFPAY ==
--- NOTE | 2024-11-11 13:00 | DI.RAD_ITS ---
Exam(s) XR STANDING ALIGNMENT EXAM: XR STANDING ALIGNMENT CLINICAL HISTORY: TKR Planning. TECHNIQUE: 2D digital imaging was performed. COMPARISON: CR XR KNEE RT 3V AP,LAT,GINGER from 02/07/2022 FINDINGS: 3 views Prosthesis appears satisfactory. There is mkje-ot-aivu narrowing of the medial compartment of the opposite-right knee. More moderate degenerative changes in the lateral compartment. Hips appear unremarkable. There is some mild pelvic tilting. Left ankle appears unremarkable. There is significant narrowing of the medial aspect of the right ankle tibiotalar joint. Bone density normal. No osseous lesions. IMPRESSION: Advanced degenerative changes in the right knee with [id number] narrowing of the medial compartment. There are also significant degenerative changes in the medial aspect of the right ankle-tibiotalar joint. DATA REPOSITORY: RADIATION DOSE DELIVERED:
--- NOTE | 2024-11-11 13:00 | DI.RAD_ITS ---
Exam(s) XR KNEE RT 1V EXAM: XR KNEE RT 1V CLINICAL HISTORY: TKR Planning. TECHNIQUE: 2D digital imaging was performed. COMPARISON: CR XR KNEE RT 3V AP,LAT,GINGER from 02/07/2022 CR XR STANDING ALIGNMENT from 11/11/2024 FINDINGS: Single lateral view right knee No fractures nor prominent joint effusion. There are advanced osteoarthritic degenerative changes evident. No osseous lesions. IMPRESSION: Advanced degenerative changes appear to be most prominent in the compartment. DATA REPOSITORY: RADIATION DOSE DELIVERED:
== END 2024-11-11 13:20 | disposition home or self-care (01) ==
LOC: DIORS 13:20
PROVIDERS: PCP Nurse Practitioner Family; Referring Provider Nurse Practitioner Family; Visit Provider Physician Assistant
DX: Z01.818 Encounter for other preprocedural examination (principal); M17.11 Unilateral primary osteoarthritis, right knee; E11.69 Type 2 diabetes mellitus with other specified complication
CPT/HCPCS: 99024; 73560; 77073

== ENCOUNTER 2024-11-17 07:31 | Observation (INO) | payer MEDICARE, MEDICAID, SELFPAY ==
--- NOTE | 2024-11-16 19:24 | W.ANESPRE ---
General Info Date of Service Date Performed: 11/17/24 Height: 5 ft 1 in Weight: 118.841 kg Body Mass Index (BMI): 49.5 Surgical Procedure: Operation Date: 11/17/24 09:40 Proposed Procedure Side Surgeon p Knee Total Arthroplasty, Cementless CR Right Roderick Garnica MD Meds Allergies and Home Medications Allergies Allergy/AdvReac Type Severity Reaction Status Date / Time ranitidine Allergy Mild HIVES Verified 11/17/24 07:57 CATS Allergy RASH/ITCHING/BREATHING Uncoded 11/17/24 07:57 DIFFICULTIES FUMES Allergy BREATHING Uncoded 11/17/24 07:57 DIFFICULTIES PLASTIC Allergy RASH Uncoded 11/17/24 07:57 Home Medication ?Medication ?Instructions ?Recorded aspirin 81 mg tablet,delayed 81 mg PO DAILY 10/13/12 release (Aspir-) atenolol 100 mg tablet 100 mg PO HS 10/13/12 simvastatin 20 mg tablet 20 mg PO DAILY 10/13/12 levothyroxine 25 mcg tablet 25 mcg PO HS 12/07/12 (Synthroid) albuterol sulfate 90 mcg/actuation 2 puff inhalation Q6H PRN ##2 11/22/13 aerosol inhaler (ProAir HFA) loratadine 10 mg tablet 10 mg PO DAILY 09/14/14 cholecalciferol (vitamin D3) 50 2,000 unit PO DAILY 04/10/16 mcg (2,000 unit) capsule (Vitamin D3) amlodipine 5 mg tablet 5 mg PO HS 07/30/18 levonorgestrel 21 mcg/24 hr (up to 1 device intrauterine ONCE #1 08/02/18 8 years) 52 mg intrauterine device device (Mirena) hydrochlorothiazide 12.5 mg tablet 12.5 mg PO DAILY 03/05/21 sertraline 25 mg tablet 25 mg PO HS 01/29/22 valsartan 40 mg tablet 40 mg PO DAILY 11/25/22 clotrimazole-betamethasone 1 1 applic topical BID 2 weeks #45 03/27/23 %-0.05 % topical cream grams insulin glargine U-300 conc 300 50 unit subcut DAILY 06/27/23 unit/mL (3 mL) subcutaneous pen (Toujeo Max U-300 SoloStar) ibuprofen 200 mg capsule 200 mg PO Q6H PRN 08/18/24 montelukast 10 mg tablet 10 mg PO DAILY 11/11/24 tirzepatide 5 mg/0.5 mL 5 mg subcut QWEEK 11/11/24 subcutaneous pen injector (Hector) Current Visit Medications: Current Medications Generic Name Dose Route Start Last Admin Trade Name Freq PRN Reason Stop Dose Admin Acetaminophen 1,000 mg 11/17/24 06:00 Acetaminophen 500 Mg Tab PO 11/17/24 23:59 PREOP KERMIT Celecoxib 400 mg 11/17/24 06:00 Celecoxib 200 Mg Cap PO 11/17/24 23:59 PREOP KERMIT Gabapentin 300 mg 11/17/24 06:00 Gabapentin 300 Mg Cap PO 11/17/24 23:59 PREOP KERMIT Ringer's Solution 1,000 mls @ 80 mls/hr 11/17/24 06:00 IV 11/17/24 23:59 INFUSION KERMIT Cefazolin Sodium 3,000 mg/ 100 mls @ 200 mls/hr 11/17/24 06:00 Sodium Chloride IV 11/17/24 23:59 PREOP KERMIT Tranexamic Acid/Sodium Chloride 1,000 mg in 100 mls @ 600 mls/hr 11/17/24 06:00 IVPB 11/17/24 23:59 PREOP KERMIT IV Miscellaneous Supplies 1 each 11/17/24 06:00 Iv Access IV 11/17/24 23:59 DIRECTED KERMIT Sodium Chloride 0 ml 11/17/24 06:00 Normal Saline Flush 10 Ml Syr IV 11/17/24 23:59 PRN PRN Sodium Chloride 0 ml 11/17/24 06:00 Normal Saline 10 Ml Vial IJ 11/17/24 23:59 DIRECTED PRN Sterile Water 0 ml 11/17/24 06:00 Water,Injection,Sterile 10 Ml Vial IJ 11/17/24 23:59 DIRECTED PRN PFSH Active Problems Active Problems: Problem Status Onset Code Cortical age-related cataract, right eye Resolved H25.011 Nuclear age-related cataract, right eye Resolved H25.11 Posterior subcapsular age-related cataract of left eye Resolved H25.042 Cortical age-related cataract, left eye Resolved H25.012 Nuclear age-related cataract, left eye Resolved H25.12 Arthritis of right glenohumeral joint Acute M19.011 Calcific tendonitis of right shoulder Acute M75.31 Arthritis of right acromioclavicular joint Acute M19.011 Osteoarthritis of right knee Acute M17.11 Bursitis of right shoulder Acute M75.51 DVT prophylaxis Acute Z29.9 Hypomagnesemia Resolved E83.42 Hypokalemia Resolved E87.6 Neoplasm of unspecified behavior of bone, soft tissue, and skin Acute D49.2 Type 2 diabetes mellitus with complication Chronic 10/31/17 E11.8 Sensorineural hearing loss, unilateral, right ear, with unrestricted hearing on the contralateral side Acute 08/07/15 H90.41 Impairment of auditory discrimination Acute 06/27/14 H93.299 IUD (intrauterine device) in place Acute 10/31/17 Z97.5 Hyperlipidemia associated with type 2 diabetes mellitus Acute 10/31/17 E11.69, E78.5 Gastroesophageal reflux disease without esophagitis Acute 10/31/17 K21.9 Essential hypertension Acute 10/31/17 I10 Depression Acute 10/31/17 F32.9 Coronary arteriosclerosis Acute 10/31/17 I25.10 BMI 50.0-59.9, adult Acute 10/31/17 Z68.43 Adenocarcinoma of endometrium Acute 12/07/12 C54.1 Acquired hypothyroidism Acute 10/31/17 E03.9 Open Carpal Tunnel release Resolved Hemicolectomy Resolved ~2003 Chronic osteoarthritis Chronic Medical History Medical History (Updated 11/17/24 @ 08:10 by Daria Huntley RN) Pneumonia due to 2019 novel coronavirus COVID History of endometrial biopsy q6mo Surveillance of endometrial CA 01/2024. Interval for EMBx changed to yearly. Vaginitis and vulvovaginitis MELONY (obstructive sleep apnea) (10/31/17) severe untreated MELONY noteably crowded aiway. Anesthesia to monitor closely-per PCP H&P Medical History Comments:: pt. reports hard time waking up once Surgical History Surgical History (Updated 11/17/24 @ 08:10 by Daria Huntley RN) Replacement of total knee joint left History of left cataract surgery Hx of shoulder surgery left History of carpal tunnel release of both wrists History of hemicolectomy History of arthroplasty of left knee Tobacco Smoking/Tobacco Use Status: Never Passive smoking exposure: No Alcohol Alcohol Intake: never Substance Use Substance use: Never Substance use type: does not use Prental History History 1 Para Hx # Term Pregnancies Multiple births Hx # Pregnancies Ectopic pregnancies AB induced Hx Number of Living Children 1 AB spontaneous Vital Signs and Lab Results Vital Signs Most Recent Vital Signs in EMR: Pulse Resp BP Pulse Ox 77 17 156/58 H 97 11/17/24 07:43 11/17/24 07:43 11/17/24 07:43 11/17/24 07:43 Lab Results Complete Blood Count: WBC, (4.4-10.8) 8.65 10^3/uL 10/22/24, 14:10 RBC, (3.93-5.22) 5.40 10^6/uL H 10/22/24, 14:10 Hgb, (11.2-15.7) 15.2 g/dL 10/22/24, 14:10 Hct, (36.0-46.0) 47.1 % H 10/22/24, 14:10 Plt Count, (130-400) 194 10^3/uL 10/22/24, 14:10 Complete Metabolic Panel: Sodium, (136-145) 143 mmol/L 10/22/24, 14:10 Potassium, (3.5-5.1) 3.9 mmol/L 10/22/24, 14:10 Chloride, (98-107) 104 mmol/L 10/22/24, 14:10 Carbon Dioxide, (21.0-32.0) 29.0 mmol/L 10/22/24, 14:10 BUN, (7-18) 24 mg/dL H 10/22/24, 14:10 Creatinine, (0.55-1.02) 1.2 mg/dL H 10/22/24, 14:10 Est GFR (CKD-EPI 2020), (mL/min/1.73m2) 48.39 10/22/24, 14:10 Calcium, (8.5-10.1) 9.6 mg/dL 10/22/24, 14:10 Albumin, (3.4-5.0) 3.6 g/dL 10/22/24, 14:10 Glucose, (74-106) 143 mg/dL H 10/22/24, 14:10 Liver Function Panel: ALT, (14-59) 24 U/L 10/22/24, 14:10 AST, (15-37) 22 U/L 10/22/24, 14:10 Thyroid Panel: TSH, (0.36-3.74) 3.21 uIU/mL 10/22/24, 14:10 Imaging and Studies Imaging and Studies Study information below may be from another EMR and interpreted by another provider. Please see original notes in EMR for more complete details. EKG Summary: DATE/TIME OF SERVICE: 03/04/212058 : 1955 PERFORMING LOCATION: [place] APPROVED REPORT Exam: Resting ECG Reason for Exam: SOB COVID Patient Location: E HR:74 bpm ECG Measurements Heart Rate 74 AXIS SD 176 P 61 QRSd 151 QRS -17 QT 475 T2 QTc 528 Conclusion Sinus rhythm...normal P axis, V-rate 60- 99 Right bundle branch block...QRSd>120, terminal axis(90,270) Probable left ventricular hypertrophy...(RaVL+SV3)xQRSd >300 Physician: No stemi, RBBB, unchanged from 2005 Stress Test Summary: Date of study: 11/23/2018 *PATIENT PRESENTATION* Height: 154.9cm (61in) Blood Pressure: Weight: 126.8kg (279lb) BSA: 2.42m^2 Referring physician: Scott Levin MD Ordering physician: Cherelle Boyce Impressions: Normal perfusion by [id number] Sestamibi Imaging. Summary: 1. Myocardial perfusion imaging: No myocardial perfusion defects noted. 2. The calculated left ventricular ejection fraction after stress: 72%. Pulmonary Function Summary: DATE OF SERVICE November 25, 2018 REQUESTING PROVIDER Cherelle Boyce NP INTERPRETATION OF STUDY Spirometry shows no evidence of obstructive airways disease. No bronchodilator response. LUNG VOLUMES - Lung volumes show no evidence of restriction. DIFFUSION CAPACITY- Normal. AIRWAY RESISTANCE - Normal. IMPRESSION Overall normal pulmonary function study. Clinical correlation recommended. Anesthesia Assessment and Plan Anesthesia History Personal History: No History of Anesthesia Complications Family History: No Family History of Anesthesia Complications Exercise Tolerance Exercise Tolerance: Metabolic Equivalents>4 Cardiac & Pulmonary Exam Cardiac Exam: Normal S1/S2 Heart Sounds Pulmonary Exam: Clear Bilateral Breath Sounds Implantable Cardiac Device Does patient have a Pacemaker or an ICD?: No Airway Exam Known Difficult Airway: No Mallampati Class: 2 Mouth Opening: Normal (> 3cm) Thyromental Distance: Less than 3 cm Neck Range of Motion: Full ROM Neck Circumference: Thick Teeth Condition: Normal Dentition ASA Classification ASA Score: ASA 3 Emergency Case?: No NPO Status NPO Status: NPO Clears >2 hours, Solids >8 hours Anesthesia Plan Resuscitation Status: Full Code Anesthesia Technique: Spinal Anesthesia Airway Planned: Natural Airway Monitors Used: Standard Monitors Preoperative Comments:: 69 yo female for TKA. Sig PMHx: HTN (amlodipine, hctz, atenolol, valsartan), CAD (she is unsure why this is on her list. Denies chest pain with exertion), asthma (albuterol, montelukast), MELONY (does not use her CPAP), GERD (denies issues), BMI 49, DM2 (last A1c 7.0. glargine - none today, Muonjaro - none for 2 weeks), hypothyroid (on replacement). never smoker. Stress: no perfusion defects. LVEF 72% ECG: sinus RBBB, LVH PFT: wnl
[2024-11-16 19:26] VITALS: BMI 49.5
[2024-11-17] VITALS (30 sets, daily range): BP systolic 113–156; BP diastolic 56–101; PULSE 68–89; RESP 11–20; TEMP 36–36.9; O2SAT 92–97
[2024-11-17] MEDS: Gabapentin 300 MG CAP PO ×2 (08:01→20:25)
[2024-11-17] MEDS: Celecoxib 200 MG CAP 400 MG PO (08:02)
[2024-11-17] MEDS: Acetaminophen 500 MG TAB 1000 MG PO ×3 (08:02→20:26)
[2024-11-17] MEDS: Lactated Ringers 1,000 ML 80 ML IV (08:15)
--- NOTE | 2024-11-17 08:55 | W.ANESNERVE ---
Nerve Block Single Injection Procedure Date and Time Date Performed: 11/17/24 Procedure Start: 08:49 Location Where Procedure Performed Procedure Location: Day Surgery Unit Reason Performed: Postoperative Analgesia Requesting Provider: Roderick Garnica Timeout Performed Timeout Performed: Yes Monitoring Used ECG, Blood Pressure and SpO2 Sterility Sterility: Hand Hygiene, Surgical Cap, Surgical Mask, Sterile Gloves and Chlorhexidine Sedation Given During Procedure Sedation Given (Indicate Dose Given): Propofol IV Dose:: 25 mg Patient Mental Status Patient Mental Status: Sedate with meaningful communication Nerve Block 1st Nerve Block: Laterality: Right Block Type: Adductor Canal Ultrasound Image Saved?: Yes Needle / Catheter Used: 120mm SonoPlex II Local Anesthetic Bolus (Indicate Dose Given): Lidocaine used for local infiltration of skin, Injected in 3-5ml increments after negative blood aspiration and Bupivacaine 0.25% Dose:: 10 mL Additives (Indicate Dose Given): None Ultrasound: Sterile probe cover and gel used Nerve Stimulator: No twitch or parasthesia noted < 0.5 mA (<0.6 mA) Paresthesia: None Procedure Tolerated: No Complications Procedure Outcome: Successful Performed By: Albert Benjamin
[2024-11-17] MEDS: ceFAZolin 3,000 MG in Normal Saline 100 ML 200 MG IV (09:20)
[2024-11-17] MEDS: TRANEXAMIC ACID/SOD. CHL. 1,000 MG/100 ML BAG 600 MG IVPB (09:26)
--- NOTE | 2024-11-17 10:41 | W.PM.OP ---
Operative Note Operative Note PRE-OP DIAGNOSIS: Right Knee Osteoarthritis POST-OP DIAGNOSIS: same PROCEDURE: Right Total Knee Replacement SURGEON: Roderick Garnica EVALUATOR TRANSFER STUDENTS: Memo Ricci ANESTHESIA TYPE: Spinal Refer to Anesthesia Record ESTIMATED BLOOD LOSS: 100 PATHOLOGY: none sent TOURNIQUET TIME: 0 COMPLICATIONS: None Patient was transported to: PACU Patient's condition: stable Implants: 1. Depuy Attune Cementless Cruciate Retaining Femoral Component, Size 5 Narrow 2. Depuy Attune Cementless Fixed Bearing Tibial Component, Size 4 3. Depuy Attune 5x7mm CR/FB Poly Indications: I have seen Jacki in clinic for symptoms of knee arthritis, confirmed with radiographic findings. She has exhausted nonoperative methods and was having significant limitations in daily function and desired better function and less pain. I discussed the technical details of a knee replacement. I explained the risks of the procedure to include, but not limited to, bleeding, infection, pain, stiffness, fracture, damage to nerves and vessels, damage to muscles and tendons, loosening, need for repeat procedure, blood clot and cardiopulmonary demise. Despite these risks, Jacki elected to proceed. Findings: There was significant signs of arthritis throughout the knee with large osteophytes throughout the medial compartment Procedure Description: Jacki was greeted in the preoperative holding area where the correct side was identified and marked. The consent was reviewed with the patient and signed. The history and physical was updated. All questions were answered. Preoperative medications were administered: Acetaminophen 1000mg, Celebrex 400mg, and Gabapentin 300mg. An adductor canal block was then administered by the anesthesia team in the DSU. She was taken back to the operating room. A spinal anesthestic was then administered. The patient was placed into the supine position on the operating room table. Posts were placed for positioning during the procedure. All bony prominences were well padded. Prophylactic antibiotics in the form of Cefazolin were administered. 1g of Tranxemic Acid was given intravenously within 30 minutes of incision. The right leg was then prepped with Chloraprep and draped in a standard fashion with impervious stockinette. A second prep with Chloraprep was performed prior to application of Iodine impregnated skin protection. A timeout to confirm correct identity, side and site, procedure, allergies, anesthesia, and medical concerns was performed. With the knee in some flexion, a midline incision was made overlying the knee. Full thickness skin flaps were raised once the extensor mechanism was encountered. These were raised medially and laterally. Any bleeding was controlled with electrocautery. Once the extensor mechanism was fully exposed, a medial parapatellar arthrotomy was performed in a flexed position. All bleeding from the arthrotomy and the geniculate arteries was coagulated. A medial subperiosteal peel was performed with electrocautery to the midcoronal plane. Due to the significant varus deformity the entire medial tibial plateau was exposed. The fat pad was removed while keeping the patellar tendon protected. The anterior distal femur synovium was removed for later visualization. The ACL and PCL were resected and the anterior horn of the lateral meniscus was transected. The knee was then flexed with the patella everted. Large osteophytes from the tibia were removed. Large osteophytes from the femur were removed. Using a step drill, and based on preoperative templating, the femoral canal was entered. This was done with a step drill without any difficulty. The intramedullary distal femoral cut guide was inserted, set to a 5 degree valgus cut and 9mm cut thickness. The distal femoral cut guide was then held in position and pinned. With the soft tissues protected, the distal cut was performed. This was passed over a few times to ensure a planar cut. I then turned attention to the tibia. The extramedullary guide was placed onto the leg. The distal aspect was slid medial to adjust for position of center of ankle and stay in line with shaft of the tibia. Approximately 3-5 degrees of posterior slope was kept in the proximal cutting guide. The center of the guide was aligned with the PCL. The stylus was used to assess cut thickness. The medial side, most involved side, was set for a 4mm cut. This was then held in position and pinned into place with 2 additional pins and a cross pin for stability. The medial and lateral collateral ligaments were protected and the cut was performed. With this completed, it was assessed and noted to be of appropriate dimensions. The guide was removed. A spacer block was inserted and the knee was brought into extension. The 6mm spacer block provided full extension, without hyperextension and with stability of both the medial and lateral collateral ligaments was assessed. The pins from the femur and the tibia were then removed. The distal femur was then sized. The anterior stylus was placed onto the lateral ridge of the anterior femur. This indicated a size 5 Narrow femur. The external rotation of the guide was adjusted to 3 degrees to match the epicondylar axis, perpendicular to Wes?s line. The 4-in-1 cutting guide was the placed. The posterior medial femur cut was evaluated and appeared of good thickness. The spacer block was inserted underneath the cutting guide and stability was confirmed in 90 degrees of flexion. An kay wing was used to confirm appropriate position of the anterior cut to avoid notching. This cutting guide was ensured to be flush on the cut surface and then pinned into place with headed pins. While protecting the soft tissues, quad tendon, and collateral ligaments, the anterior and posterior cuts were performed with a saw. The central two pins were removed and the posterior and anterior chamfers were cut next. The notch-cutting guide was placed. This was pinned to lateralize the femoral component as much as possible while keeping it flush on the cut surface. This was then pinned into position. The medial and lateral menisci were removed. Posterior osteophytes were then resected with the use of a rongeur as well as an osteotome. There was a substantial amount of osteophyte seen around the medial corner of the posterior tibia as well as the posterior medial femoral condyle. Then, A trial femoral component was then inserted, impacted down to the cut surfaces, and the lug holes were drilled. A provisional trial tibial component was placed and the knee was brought through range of motion. The polyethylene was trialed until there was good flexion and extension with excellent stability to the medial and lateral collaterals. The patella was tracking without thumbs. A size 7mm polyethylene component provided the best range of motion and stability with less than 2mm gapping with medial and lateral stress and full extension without significant hyperextension. The tibial cut surface was fully exposed. The tibia was then sized as a 4. The tibia had been previously marked during trialing to correspond to the center of the tibial component to help with rotation. The trial was aligned to this memo, approximately rotated to the medial 1/3rd of the tibial tubercle. The trial was pinned into place. The tibia was prepared with a reamer and a keel punch and lug holes. The trial components were removed. The final components were opened on the back table. The periosteal and capsular tissues, especially posteriorly, around the knee were then systematically injected with a periarticular cocktail consisting of 246mg of Ropivacaine, 0.5mg of Epinephrine, 0.08mg of Clonidine, and 30mg of Ketorolac, diluted to 100cc. I also performed a complete synovectomy around the patella including a partial lateral facetectomy. On the back table, with the implants opened. The cementless knee components were placed. Starting with the tibial component, the tibia was subluxed anteriorly and the lug holes of the component were lined up. The tibia was then impacted with an impactor and mallet until the tibial component was in contact with the tibia. The final polyethylene component was inserted. Then, the femoral component was inserted. The lug holes were aligned and the component was impacted into position. The knee was irrigated with Surgiphor Betadine solution. This was allowed to sit in the knee for 3 minutes and then it was irrigated out with saline. The patella was tracking with a no-thumbs technique. The capsule was then reapproximated with a No. 1 Vicryl at multiple locations. The capsule was finally closed with a No. 2 Stratafix, barbed suture. Deep tissues were then reapproximated with 0 Vicryl and 2-0 Vicryl. The skin was closed with a running 3-0 Monocryl in a subcuticular fashion. This was reinforced with skin glue. A Mepilex silver dressing was applied along with a [id number] TEMI wrap. A CryoCuff was applied. Jacki was transferred to the hospital bed without difficulty an suffering no apparent complication. She has a good prognosis. Physical therapy will start today and without restrictions, weight-bearing as tolerated. Aspirin 81mg BID will be used for DVT prophylaxis. Date of Procedure: 11/17/24
--- NOTE | 2024-11-17 11:26 | W.ANESPOSTOP ---
Postoperative Evaluation Date, Time and Location Date Performed: 11/17/24 Time Performed: 11:26 Patient Location: PACU Vital Signs Most Recent Imported Vital Signs: Most Recent Vital Signs Temp Pulse Resp BP Pulse Ox 36.6 C 79 16 129/66 92 11/17/24 11:21 11/17/24 11:21 11/17/24 11:21 11/17/24 11:21 11/17/24 11:21 Pain Score Most Recent Pain Score: Most Recent Pain Score Pain Level 0 11/17/24 11:17 Assessment Mental Status: Awake (Alert & Oriented to Patient Baseline) Airway and Respiratory Function: Patent airway with normal (patient baseline) respiratory exam Cardiovascular Function: Hemodynamically Stable Hydration Status: Adequately Hydrated Nausea & Vomiting: No Nausea or Vomiting Pain: Pain is tolerable per patient Peripheral Nerve Block: Regional nerve block not resolved at time of post operative discharge
[2024-11-17] MEDS: HYDROmorphone 2 MG/ML SYR IVP (11:30)
--- NOTE | 2024-11-17 12:02 | W.PC.ACHO ---
Registration Status: REG [facility] [place] Primary Language: Preferred Language: Korean Medical / Surgical History (Last Reviewed 11/17/24 @ 07:44 by Camila Paniagua, RN) Pneumonia due to 2019 novel coronavirus COVID History of endometrial biopsy Vaginitis and vulvovaginitis MELONY (obstructive sleep apnea) (10/31/17) (Last Reviewed 11/17/24 @ 07:44 by Camila Paniagua, RN) Replacement of total knee joint History of left cataract surgery Hx of shoulder surgery History of carpal tunnel release of both wrists History of hemicolectomy History of arthroplasty of left knee Most Recent Vital Signs Temperature 36.8 C 11/17/24 11:35 Temperature Source Skin 11/17/24 08:45 Pulse 81 11/17/24 11:36 Pulse Rhythm Regular 11/17/24 07:43 Pulse 81 11/17/24 11:36 Respiratory Rate 14 11/17/24 11:36 Respiratory Depth Normal 11/17/24 07:43 Blood Pressure 145/70 H 11/17/24 11:35 Blood Pressure Mean 91 11/17/24 11:35 Blood Pressure Position Supine 11/17/24 08:45 Pulse Oximetry 92 11/17/24 11:36 Respiratory End-tidal CO2 37 11/17/24 11:36 Oxygen Delivery Method Room Air 11/17/24 11:32 Oxygen Flow Rate 0 11/17/24 08:45 Pain Level 0 11/17/24 11:32 Comment Timeout was preformed at 0846 with Luann Benjamin CRNA and Stanley Paniagua RN. 25mg of propofol was given by POT SANDER at 0847. Block started at 0849 and ended at 0851. Patient reports no ringing of the ears or metallic taste of the mouth at this time. No complications noted post nerve block. Call oreilly was left within reach and patient hooked up to central monitor in nurses station. 11/17/24 08:45 Allergies ranitidine Allergy (Mild, Verified 11/17/24 07:57) HIVES CATS Allergy (Uncoded 11/17/24 07:57) RASH/ITCHING/BREATHING DIFFICULTIES FUMES Allergy (Uncoded 11/17/24 07:57) BREATHING DIFFICULTIES PLASTIC Allergy (Uncoded 11/17/24 07:57) RASH Active Medications Generic Name Dose Route Start Last Admin Trade Name Freq PRN Reason Stop Dose Admin Acetaminophen 1,000 mg 11/17/24 06:00 11/17/24 08:02 Acetaminophen 500 Mg Tab PO 11/17/24 23:59 1,000 mg PREOP KERMIT Administration Celecoxib 400 mg 11/17/24 06:00 11/17/24 08:02 Celecoxib 200 Mg Cap PO 11/17/24 23:59 400 mg PREOP KERMIT Administration Gabapentin 300 mg 11/17/24 06:00 11/17/24 08:01 Gabapentin 300 Mg Cap PO 11/17/24 23:59 300 mg PREOP KERMIT Administration Ringer's Solution 1,000 mls @ 80 mls/hr 11/17/24 06:00 11/17/24 10:50 IV 11/17/24 23:59 80 mls/hr INFUSION KERMIT Infusion Cefazolin Sodium 3,000 mg/ 100 mls @ 200 mls/hr 11/17/24 06:00 11/17/24 09:26 Sodium Chloride IV 11/17/24 23:59 Infused PREOP KERMIT Infusion Tranexamic Acid/Sodium Chloride 1,000 mg in 100 mls @ 600 mls/hr 11/17/24 06:00 11/17/24 09:36 IVPB 11/17/24 23:59 Infused PREOP KERMIT Infusion IV IV Catheter Type [Antecubital] Peripheral IV IV Catheter Gauge [Antecubital 20 ] Diet Orders Category Date Time Status Diabetes Consistent CHO [DIET] Nutrition 11/17/24 Lunch Active Hmued-yb-Unuf Documentation Fingerstick Glucose Start: 11/17/24 07:59 Freq: Status: Active Protocol: Activity Type Activity Date Activity User E-sign Co-sign Detail Recorded Client Recorded Date Recorded By Document 11/17/24 11:18 BKG DAEMON(3) [id number] 11/17/24 11:20 BKG DAEMON(4) Intake and Output - 24 Hour Total 08/04/24 08:45 thru 11/17/24 11:32 Intake Total 900 Output Total 100 Balance 800 Weight 117.3 kg Intake: IV 900 Output: Estimated Blood Loss 100 Other: Emesis Description None v v v v v v v v v Sending and/or Receiving Nurses: Please use comment section below to note any information pertinent to the patient hand-off not included above. Information / Comments: Report received from: Luann Morrison RN all questions answered: yes
[2024-11-17] MEDS: Normal Saline Flush 10 ML SYR IV ×2 (12:33→16:27)
[2024-11-17] MEDS: oxyCODONE 5 MG TAB PO (12:33)
--- NOTE | 2024-11-17 13:43 | IN_ITS ---
Date of service: 11/17/24 Time of Service: 12:40 PT Notes Inpatient Physical Therapy Evaluation I certify the need for these services as being medically necessary and skilled as furnished under this plan of treatment while under my care. Please sign and return within 14 days if you agree with the plan of care listed below.? Thank you for this referral! ? Referring Physician? Date Referring Doctor:? Tayo Ricci PT Orders: PT CONSULT for s/p R TKA Precautions: none. WBTT Patient Profile/Admitting Diagnosis:? The patient is a 69 yo female adm on 11/17/24 s/p R TKA. She requested to spend the night after her surgery. Past Medical History: All Active Problems (Updated 08/18/24 @ 15:08 by Berta De La Cruz MD) Arthritis of right glenohumeral joint (Acute) Calcific tendonitis of right shoulder (Acute) DEPO MEDROL 11/29/22; 04/17/23; 07/17/23; 10/16/23Arthritis of right acromioclavicular joint (Acute) Osteoarthritis of right knee (Acute) DEPO 11/29/22; 04/01/22; 04/17/23; 07/17/23; 10/16/23; 01/15/24; DEPO MEDROL 04/15/24Bursitis of right shoulder (Acute) DEPO 04/01/22DVT prophylaxis (Acute) Neoplasm of unspecified behavior of bone, soft tissue, and skin (Acute) Type 2 diabetes mellitus with complication (Chronic 10/31/17) Sensorineural hearing loss, unilateral, right ear, with unrestricted hearing on the contralateral side (Acute 08/07/15) Impairment of auditory discrimination (Acute 06/27/14) IUD (intrauterine device) in place (Acute 10/31/17) 2012. Mirena initially placed to treat endometrial adenocarcinoma. 07/2014 IUD not in uterus on ultrasound. New Mirena inserted. 2019. Mirena removed and new IUD inserted. July 2024: Mirena removed and replaced. 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 Not a surgery candidate. Mirena IUD placed. EMBx q6mo. If pt develops bleeding or adenocarcinoma advances beyond FIGO1 will begin Megace. 06/2013 residual adenocarcinoma FIGO 1. 11/2013 atypical complex hyperplasia. 06/2014 endometrial adenocarcinoma FIGO1. 08/2014 endometrial adenocarcinoma FIGO 1. 04/2015 atypical complex hyperplasia. suspicious for adenocarcinoma. 04/2016 Neg for complex hyperplasia. exogenous hormone effect. 10/2015 Complex hyperplasia with atypia. Pt did not return to [facility] until 2018. 10/2017 Inactive endometrium with progesterone effect. Neg for complex hyperplasia or malignancy. 05/2018 atypical complex hyperplasia. ? focal finding of adenocarcinoma. 03/2019 - Jul 2020: Focal atypical muncinous epithelium. Dec 2020: focal atypical hyperplasia July 2021: focal cytologic atypia Jan 2022 - Jan 2024: Inactive endometrium, no atypia Acquired hypothyroidism (Acute 10/31/17) Chronic osteoarthritis (Chronic) Medical History (Updated 08/18/24 @ 15:08 by Berta De La Cruz MD) Pneumonia due to 2019 novel coronavirus COVID History of endometrial biopsy q6mo Surveillance of endometrial CA 01/2024. Interval for EMBx changed to yearly.Vaginitis and vulvovaginitis MELONY (obstructive sleep apnea) (10/31/17) severe untreated MELONY noteably crowded aiway. Anesthesia to monitor closely-per PCP H&P Surgical History (Updated 08/18/24 @ 15:08 by Berta De La Cruz MD) Replacement of total knee joint leftHistory of left cataract surgery Hx of shoulder surgery left History of carpal tunnel release of both wrists History of hemicolectomy History of arthroplasty of left knee Medications: See chart Social History/Home Situation: Lives in [place] in an apartment in the basement of her daughter's home. Full flight of stairs to enter via the kitchen. There is another entrance that does not have stairs to enter, but she must walk a little across the lawn. Her grandson also has an area in part of the basement. Has a rolling walker, commode and leg hvac installer at home. Recommended she clean them all prior to use and that she could bring them in for adjustment/assessment as desired. Will have family to assist at home, but needs to be able to walk and toilet by herself. Subjective: Reports she had a lot of difficulty s/p left TKR 19 years ago with getting her ROM back. Objective: Mental Status: Patient is alert and oriented. Pain: Minimal pain at rest. Pain up to 5/10 with ROM Vital Signs: Taken by WALL ATTENDANT just prior to arrival and during session ROM/Strength: Upper extremities: WFL Lower extremities: left knee flexion to 90 in sitting. full extension supine. Able to perform active SLR bilterally and active LAQ bilaterally. Sensation: No reports of numbness or tingling. Soft tissue/edema: Right LE in jayy wrap. Bed Mobility: Supine to sit cga with HOB elevated, cuing and using bed rails. sit to supine with min assist for right LE with cuing and bed rail. Transfers: Sit to/from stand cga/min assist with therapist bracing walker. SPT with walker bed to/from commode with assist for walker, cuing mostly cga but with 1 loss of balance requring min assist. Gait: none Treatment: ankle pumps, quad sets, glut sets, heel slides, SLR x 10. all AROM bilaterally. Issued HEP sheet and reviewed with patient. Balance: cg assist standing at walker [facility] AM-PAC 6 clicks Basic Mobility Inpatient Short Form: Raw Score:???18? Informed Consent/Education:? Patient instructed in purpose of PT consult and plan of care and is agreeable Assessment:? Patient is a? 69 year old female adm on 11/17/24 for a right TKA. Patient presents with right LE pain, decreased right LE strength, decreased functional mobility, decreased balance and difficulty with ambulation. The patient would benefit from skilled inpatient services to improve these impairments to maximize function and safety. Patient is assessed as:? Low 23932? complexity based on the following: History: overweight Examination: see above Presentation: Stable and uncomplicated? Decision Making:? Low (0 history, 1-2 exam, stable/predictable, easy 20) Physical Therapy Goals: 1 day Able to get in/out of bed with supervision only. Able to perform sit to/from stand with supervision only. Able to walk 100 feet with rolling walker with supervision only. Able to go up and down 2-3 steps with 1 rail with contact guard assist only. Equipment needs met. Independent with home exercise program Plan of Care/Treatment Plan: 1-2x/day, 7 days/week x 1 day. Anticipate d/c to home tomorrow by her daughter DISCHARGE RECOMMENDATIONS: Patient reports she has a walker, commode, sat act instructor. Daughter to check tonight and clean all equipment. ? if needs bariatric equipment. Informed consent Prior to the start and throughout the course of the examination and treatment, patient was made aware of the specifics and purpose of the physical assessment and treatment procedures. Appropriate draping procedures were utilized to protect modesty where applicable. Billing Charges: Treatment Units Time Duration Manual Therapy(70836) Hands-on techniques to modulate pain increase joint range of motion reduce or eliminate soft tissue swelling, inflammation, or restriction facilitate relaxation and improve contractile and non-contractile tissue extensibility ? ? Therapeutic Procedures (47018) Instruction in therapeutic exercises to develop strength and endurance, range of motion and flexibility. HEP instruction and review: Provided skilled instruction in proper exercise performance: Provided skilled manual cues to facilitate proper muscle recruitment and/or movement pattern 1 15 Neurological Re-Education(93546) To improve balance, coordination, kinesthetic and proprioceptive sensations. ? ? Ultrasound(64314) To promote healing. ? ? Gait Training(71759) ? ? Therapeutic Activity(68010) Instruction in dynamic activities with one on one patient contact by the provider to improve functional performance as follows: 1 ? 14 ? Self Care Training(50028) ? ? E-Stim (Attended)(08184) ? ? Low IE(64439) 1 26 Mod IE(52453) ? ? High IE(20275) ? ? Time Coded Treatment Time ? 29 Total Treatment Time ? 55
[2024-11-17] MEDS: ceFAZolin 1 GM/50 ML BAG IVPB (16:28)
[2024-11-17] MEDS: Insulin Aspart 300 UNITS/3 ML PEN SC (17:03)
[2024-11-17] MEDS: Aspirin E.C. 81 MG TABEC PO (20:25)
[2024-11-17] MEDS: Levothyroxine 25 MCG TAB PO (20:26)
[2024-11-17] MEDS: Celecoxib 200 MG CAP PO (20:26)
[2024-11-17] MEDS: Simvastatin 20 MG TAB PO (20:26)
[2024-11-17] MEDS: Sertraline 25 MG TAB PO (20:27)
[2024-11-17] MEDS: Clotrimazole/Betamet Diprop Cream 15 GM TUBE TP (20:27)
[2024-11-17] MEDS: Atenolol 50 MG TAB 100 MG PO (20:27)
[2024-11-17] MEDS: amLODIPine 5 MG TAB PO (20:27)
[2024-11-18] MEDS: ceFAZolin 1 GM/50 ML BAG IVPB ×2 (00:04→08:23)
[2024-11-18 03:00] VITALS: BP 118/55; PULSE 61; RESP 16; TEMP 36.2; O2SAT 98
[2024-11-18 07:27] VITALS: BP 95/52; PULSE 63; RESP 14; TEMP 35.5; O2SAT 95
[2024-11-18] MEDS: Insulin Aspart 300 UNITS/3 ML PEN SC ×2 (08:19→12:10)
[2024-11-18] MEDS: Insulin Glargine 300 UNITS/3 ML PEN 40 UNITS SC (08:20)
[2024-11-18] MEDS: Cholecalciferol (Vitamin D3) 1,000 UNIT TAB 2000 UNITS PO (08:21)
[2024-11-18] MEDS: Aspirin E.C. 81 MG TABEC PO (08:22)
[2024-11-18] MEDS: hydroCHLOROthiazide 12.5 MG TAB PO (08:22)
[2024-11-18] MEDS: Acetaminophen 500 MG TAB 1000 MG PO ×2 (08:22→15:10)
[2024-11-18] MEDS: Montelukast 10 MG TAB PO (08:22)
[2024-11-18] MEDS: Valsartan 40 MG TAB PO (08:22)
[2024-11-18] MEDS: Celecoxib 200 MG CAP PO (08:22)
[2024-11-18] MEDS: Dexamethasone 4 MG TAB PO (08:22)
[2024-11-18] MEDS: Pantoprazole 40 MG TABCR PO (08:23)
[2024-11-18] MEDS: Loratidine 10 MG TAB PO (08:23)
[2024-11-18 08:25] VITALS: BP 110/70
--- NOTE | 2024-11-18 09:54 | PTTR_ITS ---
PT Notes Inpatient Physical Therapy Treatment Note [facility] Date: 11/18/2024 PRECAUTIONS: WBAT RLE SUBJECTIVE: Patient reports she has 2 steps with railing to get onto the porch to enter her daughter's home. Patient reports she resides in the basement level of home which requires her to walk down the jacobson after entering the home then down 4 stairs to her landing then 9 steps to the basement. Patient reports she has 1 railing and uses her hand on the wall. Patient reports there is access out of the basement however it is uneven grass and would require her to descend a hill to enter by that doorway. OBJECTIVE: Patient presented in recliner with bilateral lower extremities elevated. Patient received pain meds prior to session. ? PAIN: 08/09 VITALS: ?Monitored by nursing Therapeutic Activities (80930u 2): Direct one-on-one instruction in dynamic activities to improve functional performance. ? BED MOBILITY/TRANSFERS? Supine-sit: Supervision with increased time? Sit-supine: Min assist for right lower extremity? Sit-stand: Standby assist ? Stand-sit: Standby assist ? Bed-Chair: Standby assist with FWW ? Chair-bed: Standby assist with FWW Provided skilled cues and instruction on performance and technique throughout. Gait Training (13250m 1): Direct one-on-one instruction and skilled instruction in: [x] employing an assistive device [x] movement sequencing [x] turning and movement with proper form [x] Provided verbal cues for equipment management and technique [x] Provided instruction in gait pattern [x] Patient education regarding pacing and breathing techniques to maximize activity tolerance? GAIT? Facilitated safe and correct performance of level surface ambulation covering a distance of 100 feet x 2 using use front wheeled walker with standby assist and wheelchair follow for safety. Did not report of any increased pain. Denied headache, chest pain, and lightheadedness throughout activity. Minimal verbal cueing provided for AD management, activation of quad at mid stance directional changes, and posture.? STAIRS: 3 4 steps? and 2 6 steps with 2 rails contact-guard A with continuous cues for sequencing step to pattern ? 3 4 steps? and 2 6 steps with 1 rail and use of second rail to simulate wall within her home contact-guard/min A with continuous cues for sequencing step to pattern ? Therapeutic Exercises (33154t 1): Direct one-on-one instruction in therapeutic exercises to develop strength, endurance, range of motion and flexibility. ? Exercises ?Supine: Ankle pumps Quad sets with 3-second hold, heel slides, straight leg raise x 10 reps; hamstring stretch with towel roll at ankle seated: Long arc quad, marching x 10 reps Provided skilled instruction in proper exercise performance ASSESSMENT: Patient demonstrates ability to perform stairs with 2 railings however concern for patient to return home to perform stairs with 1 railing only without assistance. Patient demonstrates need for cueing for quad activation during ambulation to reduce risk of knee buckling. If patient does not have a ssistance on stairs she would benefit from lift assist to enter basement level of home safely and reduce risk for falls due to only having 1 railing for support. Patient able to follow home exercise program with written instructions with minimal cueing to ensure proper technique. Patient would benefit from home health PT to progress with strengthening and stair training. PLAN: Per plan of care until medically stable for discharge TREATMENT CODE/TIME: 70202, 91115, [id number] DISCHARGE RECOMMENDATION: Home health PT to progress with stairs then transition to outpatient PT as scheduled
--- NOTE | 2024-11-18 10:21 | W.PM.DS.N ---
Date of service: 11/18/24 Time of Service: 12:14 DS: Diagnosis Discharge Diagnosis (1) History of total right knee replacement: Status: Acute Discharge Plan Disposition Patient Disposition: Home W/Home Health Services Condition: Good Discharge Details Reason For Visit: Right Knee Arthritis Admit Date/Time: 11/17/24 07:31 Admit Provider: Roderick Garnica Attending Provider: Roderick Garnica Primary Care Provider: ALEXIS CHAPIN Hospital Course Hospital Course: Patient was admitted to the medical/surgical floor following the procedure. The surgery was tolerated well without any notable medical, surgical, or anesthetic complications. Mobilization began postoperatively. She was voiding spontaneously. Vitals were stable. Physical therapy worked with the patient and was cleared for discharge home. No acute medical issues. Pain was controlled on oral regimen. Home Meds and New Rx's Prescriptions: New celecoxib 200 mg capsule 200 mg PO BID PRN (Reason: pain) Qty: 60 1RF aspirin 81 mg tablet,delayed release (DR/EC) 81 mg PO BID Qty: 60 0RF acetaminophen 500 mg tablet 1,000 mg PO Q8H PRN (Reason: pain) Qty: 90 3RF pantoprazole 40 mg tablet,delayed release (DR/EC) 40 mg PO DAILY Qty: 30 0RF docusate sodium [Colace] 100 mg capsule 100 mg PO BID PRNQty: 10 0RF gabapentin 300 mg capsule 300 mg PO QHS Qty: 14 0RF oxycodone 5 mg tablet 5 mg PO Q4H PRNQty: 18 0RF Continued insulin glargine U-300 conc [Toujeo Max U-300 SoloStar] 300 unit/mL (3 mL) insulin pen 50 unit subcut DAILY Patient Comments: pt. took 38 units montelukast 10 mg tablet 10 mg PO DAILY Mounjaro 5 mg/0.5 mL pen injector 5 mg subcut QWEEK amlodipine 5 mg tablet 5 mg PO HS Mirena 20 mcg/24 hr (5 years) intrauterine device 1 device Intrauterine ONCE Qty: 1 0RF valsartan 40 mg tablet 40 mg PO DAILY atenolol 100 MG tablet 100 mg PO HS aspirin [Aspir-81] 81 MG tablet,delayed release (DR/EC) 81 mg PO DAILY simvastatin 20 MG tablet 20 mg PO DAILY levothyroxine [Synthroid] 25 MCG tablet 25 mcg PO HS albuterol sulfate [ProAir HFA] 8.5 GM HFA aerosol inhaler 2 puff Inhalation Q6H PRN Qty: 2 Patient Comments: 09/14/14 Pt states she has not used in months. PG cholecalciferol (vitamin D3) [Vitamin D3] 2,000 UNIT capsule 2,000 unit PO DAILY sertraline 25 mg tablet 25 mg PO HS clotrimazole-betamethasone 1-0.05 % cream 1 applic topical BID 14 Days Qty: 45 4RF loratadine 10 MG tablet 10 mg PO DAILY hydrochlorothiazide 12.5 mg tablet 12.5 mg PO DAILY Discontinued ibuprofen 200 mg capsule 200 mg PO Q6H PRN Discharge Instructions Additional Instructions: Total Knee Discharge Instructions Activity: The most important activity is to walk and to work on gentle motion (both flexion and extension). You should try to take short walks a few times a day. It is important that when resting you work on keeping the knee straight. Avoid putting a pillow behind the knee as this will encourage flexion. Work on range of motion exercises as provided by Physical Therapy. - Home health therapy has bStart outpatient physical therapy within 2 weeks. - You should wear the MELVIN hose on both legs for 2 weeks. You may remove these at night. You may also use any compression sock in place of the MELVIN hose. - Utilize [employer] to review exercises, see videos on exercises and obtain basic information pertaining to your surgery and your recovery. Dressing: The dressing will stay in place for at least one week, but may stay on until follow-up at 2 weeks. After the first week it may be removed and replaced with light gauze and tape or nothing. The wound and dressing may get wet after 3 days but avoid soaking the dressing or otherwise it will need to be changed. Many people prefer covering the dressing with cling wrap (saran wrap) to minimize it from getting soaked. If it gets wet, just pat dry. If it starts to peel off then it will need to be changed. Medications: - You should take Tylenol and anti-inflammatory Celebrex as your primary pain control medications. If the Celebrex is too expensive or not covered, please call the office for another alternative (Advil/Ibuprofen or Naproxen/Aleve) - You have been prescribed a stronger pain medication Oxycodone for breakthrough pain, take as needed as prescribed. - You have also been prescribed a stomach acid reduction agent Pantoprozole to help reduce stomach acid and reflux. - You have been prescribed Gabapentin to take at night for restlessness and nerve pain. - You will be taking Aspirin 81mg twice a day for DVT prevention unless instructed otherwise. - If you have constipation you should take Colace or Miralax (both [id number]). It takes most people 3-4 days to have a bowel movement. Follow-up: 2 weeks If you have any acute concerns or questions, please do not hesitate to contact the office at [phone]. You may contact Dr. Garnica with any questions after hours through the hospital at [phone] or on his cell phone at [phone]. 1. Encounter Date and Reason I certify that Jacki Jimenez was seen by Roderick Garnica MD on 11/18/24 and that I had a [id number] encounter with this patient that meets the physician face to face encounter requirements. 2. Clinical Findings Supporting Skilled Need and Homebound Status I certify that home health services are medically necessary, include either intermittent alf and/or physical/speech therapy, and that this patient is homebound in that absences from the home require considerable and taxing effort and are infrequent or of short duration, or are attributable to the need to receive medical care. [X] (a) Attached documentation from encounter provides clinical findings supporting skilled need and homebound status (including what assistance patient requires to leave the home). The encounter with the patient was in whole, or in part, for the following medical condition, which is the primary reason for home health care: Right Knee Arthritis Detention: Physical Therapy: Jacki is recovering from right knee replacement. She would benefit from home health PT and OT to help increase strength and endurance for safe mobility within the home as well as evaluating for safety and working for independent gait and stair management. Speech Therapy: Homebound: Jacki is unable to leave her home unassisted due to weakness and gait dysfunction. 3. Certification and Authentication I certify that I composed the above information based on my clinical judgement relating to this patient's medical condition and, if applicable, clinical findings communicated to me by the NPP or inpatient physician who performed the Home Health Referral. All further orders will be obtained through Dr. Garnica Stand Alone Forms: Nursing Discharge Form Referrals: ALEXIS CHAPIN, AUDIT MANAGER [Primary Care Provider, Medicine] Referral Note: Had to leave a voicemail for the office to call Jacki for an appointment. Roderick Garnica MD [ [facility] STAFF PHYSICIAN, Orthopaedic Surgical] Referral Note: Called and left voicemail Activity:: Activity as Tolerated Equipment/Supplies:: Walker Diet:: Carb Counting Discharge Orders Discharge Orders: Discharge Order (Routine); Ordered 11/18/24 Ordered By: Avery Ricci Discharge Data Discharge Date/Time-TO BE ENTERED AT DEPARTURE: 11/18/24 16:16 DS: Summary Time Spent with Patient providing and/or coordinating discharge services: Less than 30 minutes Status at Discharge Functional status at discharge: uses cane/walker Overall status at discharge: patient is progressing back to baseline Mental Status: mental status grossly normal Speech and Movement: speech and movement normal Mood: congruent mood Affect: normal affect Exam Narrative Exam Narrative: R knee dressing c/d/i. Able to actively flex and extend the knee. SILT DP/SP/Tib. +ADF/APF/EHL/FHL. Psych Mental Status: mental status grossly normal Speech and Movement: speech and movement normal Mood: congruent mood Affect: normal affect DS: Data Vitals/I&O Vitals and I&O: Vital Signs Temperature 35.5 C L 11/18/24 07:27 Temperature Source Tympanic 11/18/24 07:27 Pulse 63 11/18/24 07:27 Pulse Rhythm Regular 11/17/24 07:43 Pulse 81 11/17/24 11:36 Respiratory Rate 14 11/18/24 07:27 Respiratory Effort Normal, Non-Labored 11/17/24 11:55 Respiratory Depth Normal 11/17/24 11:55 Blood Pressure 110/70 11/18/24 08:25 Blood Pressure Mean 83 11/18/24 08:25 Blood Pressure Position Supine 11/17/24 08:45 Pulse Oximetry 95 11/18/24 07:27 Respiratory End-tidal CO2 37 11/17/24 11:36 Oxygen Delivery Method Room Air 11/18/24 07:27 Oxygen Flow Rate 0 11/18/24 07:27 Pain Level 3 11/18/24 08:22 Comment small light blue cuff on left radial 11/17/24 12:31 Intake & Output 11/17/24 11/17/24 11/18/24 11:59 23:59 11:59 Intake Total 900 / 1540 640 / 1540 350 / 350 Output Total 100 / 475 375 / 475 Balance 800 / 1065 265 / 1065 350 / 350 Weight 126.1 kg Intake: IV 900 / 1300 400 / 1300 100 / 100 Oral 240 / 240 250 / 250 Output: Urine 375 / 375 Estimated Blood Loss 100 / 100 Other: Urine Color Yellow Yellow Urine Appearance Clear Urine Odor Normal Comment mixed with stool Stool Size Small Stool Characteristics Soft Brown Emesis Description None PFSH All Active Problems (Updated 11/17/24 @ 08:10 by Daria Huntley RN) History of total right knee replacement (Acute 11/17/24) Arthritis of right glenohumeral joint (Acute) Calcific tendonitis of right shoulder (Acute) DEPO MEDROL 11/29/22; 04/17/23; 07/17/23; 10/16/23 Arthritis of right acromioclavicular joint (Acute) Bursitis of right shoulder (Acute) DEPO 04/01/22 DVT prophylaxis (Acute) Neoplasm of unspecified behavior of bone, soft tissue, and skin (Acute) Type 2 diabetes mellitus with complication (Chronic 10/31/17) Sensorineural hearing loss, unilateral, right ear, with unrestricted hearing on the contralateral side (Acute 08/07/15) Impairment of auditory discrimination (Acute 06/27/14) IUD (intrauterine device) in place (Acute 10/31/17) 2012. Mirena initially placed to treat endometrial adenocarcinoma. 07/2014 IUD not in uterus on ultrasound. New Mirena inserted. 2018. Mirena removed and new IUD inserted. July 2024: Mirena removed and replaced. 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 Not a surgery candidate. Mirena IUD placed. EMBx q6mo. If pt develops bleeding or adenocarcinoma advances beyond FIGO1 will begin Megace. 06/2013 residual adenocarcinoma FIGO 1. 11/2013 atypical complex hyperplasia. 06/2014 endometrial adenocarcinoma FIGO1. 08/2014 endometrial adenocarcinoma FIGO 1. 04/2015 atypical complex hyperplasia. suspicious for adenocarcinoma. 04/2016 Neg for complex hyperplasia. exogenous hormone effect. 10/2015 Complex hyperplasia with atypia. Pt did not return to [facility] until 2017. 10/2017 Inactive endometrium with progesterone effect. Neg for complex hyperplasia or malignancy. 05/2018 atypical complex hyperplasia. ? focal finding of adenocarcinoma. 03/2019 - Jul 2020: Focal atypical muncinous epithelium. Dec 2020: focal atypical hyperplasia July 2021: focal cytologic atypia Jan 2022 - Jan 2024: Inactive endometrium, no atypia Acquired hypothyroidism (Acute 10/31/17) Chronic osteoarthritis (Chronic) Medical History (Updated 11/17/24 @ 08:10 by Daria Huntley RN) Pneumonia due to 2018 novel coronavirus COVID History of endometrial biopsy q6mo Surveillance of endometrial CA 01/2024. Interval for EMBx changed to yearly. Vaginitis and vulvovaginitis MELONY (obstructive sleep apnea) (10/31/17) severe untreated MELONY noteably crowded aiway. Anesthesia to monitor closely-per PCP H&P Surgical History (Updated 11/17/24 @ 08:10 by Daria Huntley RN) Replacement of total knee joint left History of left cataract surgery Hx of shoulder surgery left History of carpal tunnel release of both wrists History of hemicolectomy History of arthroplasty of left knee Family History Mother Hypertensive disorder, systemic arterial Father Acute poliomyelitis Brother Hypertensive disorder, systemic arterial Diabetes Brother Diabetes Personal history of malignant neoplasm Social History Smoking/Tobacco Use Status: Never Smoking risk assessment performed?: Yes Alcohol Intake: never Drug use: Never Substance use type: does not use Housing: apartment Number of Children: 1 current occupation: Not working secondary to disabilities Seatbelt use: always Do you feel safe at home: Yes Do you feel safe in your relationship?: Yes History History 1 Para Hx # Term Pregnancies Multiple births Hx # Pregnancies Ectopic pregnancies AB induced Hx Number of Living Children 1 AB spontaneous Time Spent with Patient Time Spent with Patient: <45 minutes Time was spent: preparing to see the patient(eg.review tests), obtaining and/or reviewing separately otained hiistory and care coordination
--- NOTE | 2024-11-18 12:14 | PDOC.CMDIS ---
Date of service: 11/18/24 Time of Service: 12:14 LACE Index Scoring Tool Questions: Length of Stay (in days): 1 Was the patient admitted via the E.D.?: No Comorbidities: Diabetes w/o Complication E.D. Visits: 0 Answers: Total Score: 2 Risk of Readmission: Low Risk Care Management Discharge Plan Reason for Hospitalization: Right Knee Replacement Discharge Plan: Jacki is discharged home with [facility] via private vehicle with her daughter. Jacki will follow up with Ortho and discharge plan of care as directed. Patient/Family Education Needs: Review discharge instructions, limitations and plan to follow up after discharge. Discuss ask me three. Services Needed at Discharge: Home Health Care Services ([facility])
[2024-11-18] MEDS: oxyCODONE 5 MG TAB PO (15:11)
== END 2024-11-18 16:16 | disposition home health service (06) ==
LOC: SUR 10:26 → MS 14:12
PROVIDERS: Admitting Provider Student in an Organized Health Care Education/Training Program; PCP Nurse Practitioner Family; Visit Provider Student in an Organized Health Care Education/Training Program
PROC: (CPT 27447; principal; 2024-11-17 09:30)
DX: M17.11 Unilateral primary osteoarthritis, right knee (principal); G89.18 Other acute postprocedural pain; M25.561 Pain in right knee; G47.33 Obstructive sleep apnea (adult) (pediatric); I10 Essential (primary) hypertension; E11.9 Type 2 diabetes mellitus without complications; K21.9 Gastro-esophageal reflux disease without esophagitis; E78.5 Hyperlipidemia, unspecified; I25.10 Atherosclerotic heart disease of native coronary artery without angina pectoris; E66.9 Obesity, unspecified; Z68.42 Body mass index [BMI] 45.0-49.9, adult; Z96.652 Presence of left artificial knee joint
CPT/HCPCS: 27447; 64447; 96365; 96366; 97110; 97116; 97161; 97530; C1776; G0378; J0665; J0690; J1100; J1171; J1815; J2401; J2405; J2704; J8540

== ENCOUNTER 2024-12-02 14:00 | Outpatient (CLI) | payer MEDICARE, MEDICAID, SELFPAY ==
--- NOTE | 2024-12-02 12:45 | DI.RAD_ITS ---
Exam(s) XR KNEE RT 1V XR STANDING ALIGNMENT EXAM: XR STANDING ALIGNMENT CLINICAL HISTORY: 1st post op S/P TKA. TECHNIQUE: 2D digital imaging was performed. Standing AP views were performed from the pelvis through the ankles. Lateral view of the right knee. COMPARISON: CR XR STANDING ALIGNMENT from 11/11/2024 CR XR KNEE RT 1V from 12/02/2024 FINDINGS: BONES: No acute fracture is present. No bony destructive lesion is seen. Leg length discrepancy: Approximate 10 millimeter overall leg length discrepancy. JOINTS: Knees: The patient is status post placement of a right total knee prosthesis since the previous exam. The alignment is satisfactory. There is previously existing left knee prosthesis. Ankles: There is moderate to severe narrowing of the medial tibiotalar joint space on the right and periarticular spurring. The left ankle joint space shows mild medial narrowing. There is also periarticular spurring. The hip joints are unremarkable. SOFT TISSUE: Normal. IMPRESSION: Status post placement right total knee prosthesis. Mild overall leg length discrepancy. DATA REPOSITORY: RADIATION DOSE DELIVERED:
== END 2024-12-02 14:01 | disposition home or self-care (01) ==
LOC: DIORS 14:01
PROVIDERS: PCP Nurse Practitioner Family; Visit Provider Physician Assistant
DX: S31.109A Unspecified open wound of abdominal wall, unspecified quadrant without penetration into peritoneal cavity, initial encounter (principal); Z47.1 Aftercare following joint replacement surgery; Z96.651 Presence of right artificial knee joint
CPT/HCPCS: 99213; 73560; 77073

== ENCOUNTER → 2024-12-08 11:16 | Outpatient (BNVA) | payer MEDICARE, MEDICAID, SELFPAY | PROVIDERS: PCP Nurse Practitioner Family; Referring Provider Student in an Organized Health Care Education/Training Program; Visit Provider Physical Therapy Assistant | DX: S31.109A Unspecified open wound of abdominal wall, unspecified quadrant without penetration into peritoneal cavity, initial encounter (principal); X58.XXXA Exposure to other specified factors, initial encounter | CPT/HCPCS: 99214 ==

== ENCOUNTER → 2024-12-29 09:46 | Outpatient (BNVA) | payer MEDICARE, MEDICAID, SELFPAY | PROVIDERS: PCP Nurse Practitioner Family; Referring Provider Student in an Organized Health Care Education/Training Program; Visit Provider Physical Therapy Assistant | DX: S31.109D Unspecified open wound of abdominal wall, unspecified quadrant without penetration into peritoneal cavity, subsequent encounter (principal); X58.XXXD Exposure to other specified factors, subsequent encounter | CPT/HCPCS: 99212 ==

== ENCOUNTER → 2025-01-03 14:31 | Outpatient (BNVA) | payer MEDICARE, MEDICAID, SELFPAY | PROVIDERS: PCP Nurse Practitioner Family; Referring Provider Nurse Practitioner Family; Visit Provider Student in an Organized Health Care Education/Training Program | DX: Z47.1 Aftercare following joint replacement surgery (principal); Z96.651 Presence of right artificial knee joint | CPT/HCPCS: 99024 ==

== ENCOUNTER → 2025-01-13 10:08 | Outpatient (BNVA) | payer MEDICARE, MEDICAID, SELFPAY | PROVIDERS: PCP Nurse Practitioner Family; Referring Provider Student in an Organized Health Care Education/Training Program; Visit Provider Physical Therapy Assistant | DX: S31.105D Unspecified open wound of abdominal wall, periumbilic region without penetration into peritoneal cavity, subsequent encounter (principal); X58.XXXD Exposure to other specified factors, subsequent encounter | CPT/HCPCS: 99212 ==

== ENCOUNTER → 2025-02-14 14:05 | Outpatient (BNVA) | payer MEDICARE, MEDICAID, SELFPAY | PROVIDERS: PCP Nurse Practitioner Family; Referring Provider Nurse Practitioner Family; Visit Provider Physician Assistant | DX: Z47.1 Aftercare following joint replacement surgery (principal); Z96.651 Presence of right artificial knee joint; M70.51 Other bursitis of knee, right knee | CPT/HCPCS: 99024 ==

== ENCOUNTER → 2025-05-02 13:38 | Outpatient (BNVA) | payer MEDICARE, MEDICAID, SELFPAY | PROVIDERS: PCP Nurse Practitioner Family; Referring Provider Nurse Practitioner Family; Visit Provider Student in an Organized Health Care Education/Training Program | DX: Z47.1 Aftercare following joint replacement surgery (principal); Z96.651 Presence of right artificial knee joint; M70.51 Other bursitis of knee, right knee | CPT/HCPCS: 99213 ==